=== PATIENT | male | born 1955 | race African-American/Black ===

== ENCOUNTER 2017-06-18 18:33 | Inpatient (IN) | payer MEDICARE ==
[2017-06-18] MEDS ORDERED: Ondansetron ODT 4 MG TAB PO PRN (22:43)
[2017-06-18] MEDS ORDERED: Vancomycin HCl 750 MG in Sodium Chloride 0.9% 250 ML 250 ML IVPB SCH (23:15)
[2017-06-19 05:20] LABS: #Basophils 0.1 thou/uL (0.0-0.2); #Eosinphils 0.2 thou/uL (0.0-0.7); #Monocytes 0.8 thou/uL (0.11-0.59); #Neutrophils 5.8 thou/uL (1.40-6.50); %Basophils 1.5 % (0.0-1.0); %Eosinophils 2.7 % (0.0-10.0); %Lymphocytes 22.4 % (21.0-51.0); %Monocytes 8.6 % (0.0-10.0); %Neutrophils 64.9 % (42.0-75.0); Hemoglobin 9.8 g/dL (14.0-18.0); Mean Corpuscular HGB CONC 30.9 g/dL (32.0-36.0); Mean Corpuscular Hemoglobin 26.3 pg (27.0-31.0); Mean Platelet Volume 5.4 fL (7.4-10.4); Platelet Count 336 thou/uL (130-400); RBC Distribution Width 17.6 % (11.5-14.5); Red Blood Cell (RBC) Count 3.73 mill/uL (4.70-6.10); White Blood Cell (WBC) Count 8.9 thou/uL (4.8-10.8)
[2017-06-19 05:39] LABS: ALT (SGPT) 13 U/L (8-55); AST (SGOT) 16 U/L (5-34); Albumin 2.6 g/dL (3.4-4.8); Alkaline Phosphatase 67 U/L (40-150); Anion Gap 14 mmol/L (10-20); BUN (Urea Nitrogen) 18 mg/dL (8.4-25.7); Bilirubin, Total 0.2 mg/dL (0.2-1.2); Calc. Creatinine Clearance 33 mL/min (70-130); Calcium 8.4 mg/dL (7.8-10.44); Carbon Dioxide 25 mmol/L (23-31); Chloride 100 mmol/L (98-107); Estimated GFR-MDRD 14; Globulin 4.4 g/dL (2.4-3.5); Glucose 179 mg/dL (80-115); Potassium 4.2 mmol/L (3.5-5.1); Sodium 135 mmol/L (136-145)
[2017-06-19] MEDS: Insulin NPH/Reg Insulin Hm 300 UNITS/3 ML VIAL SC SCH ×2 (08:05→17:15)
[2017-06-19] MEDS: Carvedilol 25 MG TAB PO SCH ×3 (08:10→21:21)
[2017-06-19] MEDS: Cipro 250 MG TAB PO SCH ×2 (08:58→21:22)
[2017-06-19] MEDS: metroNIDAZOLE 500 MG TAB PO SCH ×3 (09:01→21:21)
[2017-06-19] MEDS: cloNIDine HCl 0.1 MG TAB PO SCH (09:01)
[2017-06-19] MEDS: Famotidine 20 MG TAB PO SCH (09:03)
[2017-06-19] MEDS: Clopidogrel Bisulfate 75 MG TAB PO SCH (09:03)
[2017-06-19] MEDS: Heparin 5,000 UNITS/ML VIAL SC SCH ×2 (09:06→21:23)
--- NOTE | 2017-06-19 11:57 | HP ---
DATE OF ADMISSION: 06/18/2017. HISTORY OF PRESENT ILLNESS: The patient is a very pleasant 61-year-old black male with multiple med ical problems, who presented to his wound care clinic and was found to have a left foot ulcer that a ppeared to be infected. He was sent to the emergency room and was found to have a left diabetic aleksandra t ulcer and was admitted to the hospital for rule out osteomyelitis and to treat his infection. PAST MEDICAL HISTORY: Reveals the patient has a followin. Hypertension. 2. Hyperlipidemia. 3. Insulin-dependent type 2 diabetes. 4. End-stage renal disease on hemodialysis, followed by Dr. Dunn. 5. Stroke. 6. Heart block, status post pacemaker. 7. Chronic lymphedema. 8. Peripheral vascular disease. 9. Chronic leg wounds. 10. Generalized weakness. 11. Morbid obesity. 12. Left lower extremity cellulitis with nonhealing diabetic foot ulcer. 13. Osteomyelitis of the left heel. 14. Osteomyelitis of the left fifth toe. 15. Severe peripheral vascular disease, status post peripheral angiogram suggestive of significant peripheral vascular disease, status post stent in the left lower extremity. 16. Prior history of stroke without any neurological deficits. 17. Chronic bilateral lymphedema with chronic wounds. PAST SURGICAL HISTORY: 1. Cholecystectomy. 2. Left foot surgery in 1996. FAMILY HISTORY: Unremarkable. SOCIAL HISTORY: Reveals the patient lives at home with his family. He stopped smoking in 1984. De nies any alcohol or illicit drugs. He is unable to work. ALLERGIES: He has no known medical allergies. PRESENT MEDICATIONS: He is presently on the following, which include: 1. Amlodipine 10 mg daily. 2. Carvedilol 12.5 mg twice a day. 3. Clonidine 0.3 mg daily. 4. Clopidogrel 75 mg daily. 5. Atorvastatin 20 mg daily. 6. Aspirin 81 mg daily. 7. Ciprofloxacin 250 mg b.i.d. 8. Flagyl 250 mg t.i.d. 9. Vancomycin 1200 mg IV piggyback for dialysis per protocol and those 3 antibiotics, we will nancy nue until 07/27/2017. 10. Humalog subcutaneous p.r.n. sliding scale. 11. Novolin 70/30 at 15 units subcutaneous b.i.d. 12. Pantoprazole 40 mg daily. REVIEW OF SYSTEMS: The patient denies any fever or chills, or night sweats at this time. The patie nt denies any change in vision or change in hearing or any oral, nose or throat maladies. The edgardo ent denies any cough, cold, congestion, shortness of breath or dyspnea on exertion at this time. Th e patient denies any chest pain including irregularity, rapid or slow heartbeats. The patient denie s nausea, vomiting, diarrhea, constipation, or black, bloody or tarry stools. The patient denies si gnificant nocturia, hematuria, or dysuria. The patient admits to generalized weakness mostly from h is being obese and overweight, and he is having to be off of his foot at this time for those healing diabetic ulcers. The patient denies any anxiety or depressive disorder or stress. PHYSICAL EXAMINATION: GENERAL: This is a well-developed, well-nourished, morbidly obese black male, in no apparent distre ss at this time. HEENT: Reveals normocephalic, nontraumatic cranium. The pupils are equally round and reactive. Ex traocular movements are intact. Nose and throat are slightly dry, but clear. NECK: Supple without masses, nodes or bruits. No jugular venous distention is noted. CHEST: Clear to auscultation. No rales, no rhonchi, no wheezes are heard. No cough is noted. HEART: Reveals a regular rate and rhythm without murmurs, gallops or rubs. ABDOMEN: Morbidly obese, soft, nontender, without organomegaly. Organomegaly is not appreciated du e to the size. Bowel sounds are present in all 4 quadrants. No rebound or guarding is noted. GENITOURINARY: Deferred. EXTREMITIES: Reveal bilateral significant lymphedema with lower extremity wounds on the left side o f the heel, fifth metatarsal and the mid upper calf, which were all bandaged at this time. NEUROLOGIC: The patient is oriented to person, place, and time. ASSESSMENT: 1. Diabetic foot with lower extremity cellulitis, status post ulcer debridement, postoperative day #7. 2. Osteomyelitis of the left heel. 3. Osteomyelitis of the left fifth toe. 4. Diabetes type 2. 5. Hypertension. 6. Severe peripheral vascular disease, status post stent. 7. Heart block, status post pacemaker. 8. End-stage renal disease, on hemodialysis. 9. Prior stroke without neurological deficits. 10. History of occasional hypotension to borderline blood pressure. 11. Bilateral chronic lymphedema with chronic wounds. 12. Morbid obesity. PLAN: 1. Continue present antibiotics of vancomycin during dialysis as per sliding scale. 2. Continue ciprofloxacin 250 b.i.d. 3. Continue Flagyl 250 t.i.d. 4. Continue those 3 antibiotics until 07/27/2017. 5. CBC, C-reactive protein, and CMP every week and send results to Dr. Vásquez. 6. See the strategic accounts manager in 2 to 3 weeks. 7. See the wound care physician weekly. 8. Possible wound VAC therapy. 9. Therapy for chronic lymphedema as needed. I spent more than 65 minutes discussing the case with the patient and his expectations and our expec tations.
[2017-06-19] MEDS ORDERED: Dextrose 50% Abboject 50 ML SYRINGE IVP PRN (17:19)
[2017-06-19] MEDS ORDERED: Dextrose 5% in Water 1,000 ML IV PRN (17:19)
[2017-06-19] MEDS: HumaLOG 300 UNITS/3 ML VIAL SC PRN (17:39)
[2017-06-19] MEDS: Atorvastatin Calcium 20 MG TAB PO SCH (21:20)
--- NOTE | 2017-06-19 22:17 | PRG ---
DATE OF SERVICE: 06/19/2017 DATE OF ADMISSION: 06/18/2017 SUBJECTIVE: Mr. Wells is a very pleasant 61-year-old black male with multiple medical problems who p resented to the [facility] Care [facility], who was found to have a left foot ulcer that appeared to be infec robbie. He was sent to the emergency room and had a diabetic foot ulcer. He was admitted to the [facility] to rule out osteomyelitis and eventually transferred to [facility] for continued IV antibiotics of vancomycin, Flagyl and Cipro treated until 07/27/2017. The patient states he is doing fairly well. He ate fairly well. He has no complaints. He states h e did not get out of bed today, but it was Wednesday. PHYSICAL EXAMINATION: VITAL SIGNS: Blood pressure this morning 130/63, pulse 74-81, respirations 18-20, O2 sat 97%-98%. T-max 99.1. Weight today is 374 pounds. GENERAL: This is a well-developed, well-nourished, morbidly obese black male in no apparent distres s, on hemodialysis 3 times a week by Dr. Dunn. HEENT: Reveals normocephalic, nontraumatic cranium. Pupils are equally round and reactive. Extrao cular movements intact. Nose and throat are slightly dry. NECK: Supple, without masses, nodes or bruits. LUNGS: Chest is clear to auscultation. No rales, rhonchi, or wheezes are heard. No cough is noted . HEART: Reveals a regular rate and rhythm without murmurs, gallops or rubs. Pacemaker noted in the left upper quadrant. ABDOMEN: Morbidly obese, soft, nontender, without organomegaly. Normal bowel sounds are noted. No rebound or guarding is noted. : Deferred. EXTREMITIES: Reveal significant bilateral lymphedema in lower extremities. Wounds on left side of heel, fifth metatarsal, and mid upper calf, all bandaged at this time still. NEUROLOGIC: The patient is oriented to person, place, time, and situation. LABORATORY DATA: Laboratories yesterday revealed a white count of 8000, hemoglobin 9.8, hematocrit 31.7, and platelet count 336,000. Chemistries yesterday revealed a sodium 135, potassium 4.2, and c reatinine 5.18. Obici-rl-ylhe sugars reveal sugar this morning fasting 182, before lunch 175, befor e supper 264. Liver enzymes are fine. ASSESSMENT: 1. Diabetic foot with lower extremity cellulitis, status post ulcer debridement postop. 2. Osteomyelitis of the left heel. 3. Osteomyelitis of the left fifth toe. 4. Diabetes type 2. 5. Hypertension. 6. Severe peripheral vascular disease, status post stent. 7. Heart block, status post pacemaker. 8. End-stage renal disease on hemodialysis. 9. Prior stroke without neurological deficits. 10. History of occasional hypotension. 11. Borderline high blood pressure. 12. Bilateral chronic lymphedema with chronic wounds. 13. Morbid obesity. PLAN: 1. Continue vancomycin and some sliding scale dose during dialysis until 07/27/2017. 2. Continue ciprofloxacin 250 b.i.d. until 07/27/2017. 3. Continue Flagyl 250 mg t.i.d. until 07/27/2017. 4. CBC, C-reactive protein, CMP every week and send results to Dr. Vásquez. 5. See extracting machine operator in 2-3 weeks. 6. Wound care physician to be seen weekly. 7. Possible wound VAC in the future depending on how well the wound is healing. Continue chronic l ymphedema therapy is needed.
[2017-06-20 05:27] LABS: Hemoglobin 9.6 g/dL (14.0-18.0); Platelet Count 329 thou/uL (130-400)
[2017-06-20] MEDS: Carvedilol 25 MG TAB PO SCH ×3 (08:05→21:39)
[2017-06-20] MEDS: Insulin NPH/Reg Insulin Hm 300 UNITS/3 ML VIAL SC SCH ×2 (08:05→16:57)
[2017-06-20] MEDS: metroNIDAZOLE 500 MG TAB PO SCH ×3 (09:05→21:38)
[2017-06-20] MEDS: Cipro 250 MG TAB PO SCH ×2 (09:05→21:40)
[2017-06-20] MEDS: cloNIDine HCl 0.1 MG TAB PO SCH (09:05)
[2017-06-20] MEDS: Famotidine 20 MG TAB PO SCH (09:05)
[2017-06-20] MEDS: Clopidogrel Bisulfate 75 MG TAB PO SCH (09:10)
[2017-06-20] MEDS: Heparin 5,000 UNITS/ML VIAL SC SCH ×2 (09:11→21:40)
[2017-06-20] MEDS: HumaLOG 300 UNITS/3 ML VIAL SC PRN ×2 (11:56→16:58)
[2017-06-20] MEDS: Atorvastatin Calcium 20 MG TAB PO SCH (21:40)
[2017-06-20] MEDS: Acetaminophen 325 MG TAB PO PRN (21:40)
--- NOTE | 2017-06-21 02:36 | PRG ---
DATE OF SERVICE: 06/20/2017 HISTORY OF PRESENT ILLNESS: Mr. Wells is a very pleasant 61-year-old black male with multiple medica l problems that presented to the [facility] Care Clinic. He was found to have a left foot ulcer that was infected. He was sent to the emergency room with diabetic foot ulcer. He was admitted to the [facility] to rule out osteomyelitis and eventually transferred to [facility] for continued IV anti biotics on vancomycin and Flagyl and Cipro to be treated until 07/27/2017. Patient also has end-sta ge renal disease. The patient has dialysis on Wednesday, Wednesday, and Wednesday. SUBJECTIVE: The patient states he is doing well. He is eating fairly well. He has no complaints. He is not able to get out of bed today. PHYSICAL EXAMINATION: VITAL SIGNS: Today reveal blood pressure 134/58, pulse 67-72, respirations 20, O2 sat 95-97%, tempe rature max 97.2. Weight is 347 pounds. GENERAL: This is a well-developed, well-nourished, morbidly obese black male in no apparent distres s at this time. HEENT: Reveals normocephalic, nontraumatic cranium. Pupils are equally round. Extraocular movemen ts are intact. Nose and throat are slightly dry. NECK: Supple, without masses, nodes or bruits. LUNGS: Chest is clear to auscultation. No rales, no rhonchi, no wheezes or cough is heard. CARDIOVASCULAR: Reveals a regular rate and rhythm without murmurs, gallops or rubs. Pacemaker note d in the left upper quadrant. ABDOMEN: Morbidly obese. It is soft and nontender. Normal bowel sounds are noted. No rebound or guarding is noted. GENITOURINARY: Deferred. EXTREMITIES: Reveal continued bilateral lymphedema lower extremities with wounds in the left heel, the left fifth metatarsal and left mid upper calf. These will be either attended to by Wound Care. NEUROLOGIC: The patient is oriented to person, place, and time. LABORATORY DATA: No labs were done today. IMPRESSION: 1. Diabetic foot lower extremity cellulitis status post ulcer debridement postop. 2. Osteomyelitis, left heel. 3. Osteomyelitis, left fifth toe. 4. Diabetes type 2. 5. Hypertension. 6. Severe peripheral vascular disease, status post stent. 7. Heart block status post pacemaker. 8. End-stage renal disease, on hemodialysis Wednesday, Wednesday, and Wednesday. 9. Prior stroke without neurological deficits. 10. History of occasional hypotension. 11. Borderline hypertension. 12. Chronic bilateral lymphedema with chronic wounds. 13. Morbid obesity. POINT OF CARE: Glucoses day revealed a fasting blood sugar this morning 128, before lunch 158, befo re supper 168, before bedtime 125. PLAN: 1. Continue vancomycin after dialysis. 2. Continue sliding scale dose during dialysis. 3. Continue ciprofloxacin 250 b.i.d. until 07/27/2017. 4. Continue Flagyl 250 t.i.d. until 07/27/2017. 5. CBC, C-reactive protein, CMP, sed rate weekly to Dr. Vásquez. 6. Fashion Supervisor 2-3 weeks. 7. The patient will see the Wound Care doctor sometimes this week. We will need to make arrangemen ts for that to happen and then weekly. 8. Possible wound VAC in the future.
[2017-06-21] MEDS: metroNIDAZOLE 500 MG TAB PO SCH ×3 (08:34→21:42)
[2017-06-21] MEDS: cloNIDine HCl 0.1 MG TAB PO SCH (08:34)
[2017-06-21] MEDS: Carvedilol 25 MG TAB PO SCH ×3 (08:35→21:41)
[2017-06-21] MEDS: Cipro 250 MG TAB PO SCH ×2 (08:36→21:41)
[2017-06-21] MEDS: Famotidine 20 MG TAB PO SCH (08:36)
[2017-06-21] MEDS: Clopidogrel Bisulfate 75 MG TAB PO SCH (08:37)
[2017-06-21] MEDS: Insulin NPH/Reg Insulin Hm 300 UNITS/3 ML VIAL SC SCH ×2 (08:38→16:57)
[2017-06-21] MEDS: Heparin 5,000 UNITS/ML VIAL SC SCH ×2 (08:39→21:41)
[2017-06-21] MEDS ORDERED: [UNRECOGNIZED DRUG - REMARK] IVPB PRN (09:56)
[2017-06-21] MEDS ORDERED: [UNRECOGNIZED DRUG - OTHER] FS PRN (10:23)
[2017-06-21 10:26] LABS: Vancomycin, Trough 15.3 ug/mL
[2017-06-21] MEDS: Atorvastatin Calcium 20 MG TAB PO SCH (21:42)
--- NOTE | 2017-06-22 01:37 | PRG ---
DATE OF ADMISSION: 06/18/2017 DATE OF PROGRESS NOTE: 06/21/2017 HISTORY OF PRESENT ILLNESS: Mr. Wells is a very pleasant 61-year-old black male with multiple medica l problems that presented to the Wound Clinic in [place]. He had an infected foot and was s ent to the emergency room where he had a diabetic foot and he was admitted to the hospital. In the hospital, he was found to have osteomyelitis and eventually transferred to [facility], so he can continue his 3 antibiotics including vancomycin and Flagyl and Cipro. It is also noted that the patient has end-stage renal disease and continue with dialysis on Wednesday, Wednesday, and Wednesday. SUBJECTIVE: The patient states he is doing well. He is getting ready go to dialysis here soon. He has no complaints. PHYSICAL EXAMINATION: VITAL SIGNS: Reveal blood pressure 143/61, pulse 67 to 68, respirations 18 to 20, O2 sat 95% on dana m air, T-max 97.5. GENERAL: Reveals a well-developed, well-nourished, morbidly obese black male in no apparent distres s at this time. HEENT: Reveals normocephalic, nontraumatic cranium. Pupils are equally round and reactive. Extrao cular movements intact. Nose and throat are slightly dry. NECK: Supple, without masses, nodes or bruits. LUNGS: Chest is clear to auscultation. Breath sounds are distant. No rales, rhonchi, wheezes or c ough is heard. HEART: Reveals a regular rate and rhythm without murmurs, gallops or rubs. Pacemaker still noted i n the left upper quadrant. ABDOMEN: Morbidly obese. Normal bowel sounds are noted in all 4 quadrants. The patient has no deloris ound or guarding. Difficult to discern whether the patient has any organomegaly. GENITOURINARY: Deferred. EXTREMITIES: Reveal bilateral lower extremity lymphedema, which was on the left heel, the left fift h metatarsal, and the left mid upper calf, which was on I and D. NEUROLOGIC: The patient is oriented to person, place, time, and situation. LABORATORY DATA: Today reveals sugars of fasting this morning 116, before lunch 176. Vancomycin tr ough was 15.3. IMPRESSION: 1. Diabetic foot, lower extremity cellulitis, status post ulcer debridement, postop catheterization . 2. Osteomyelitis of left heel. 3. Osteomyelitis of left fifth toe. 4. Diabetes type 2. 5. Hypertension. 6. Peripheral vascular disease, severe, status post stent. 7. Heart block status post pacemaker. 8. End-stage renal disease on hemodialysis Wednesday, Wednesday, and Wednesday. 9. Prior stroke without neurological deficits. 10. Hypotension occasionally. 11. Borderline hypertension. 12. Chronic bilateral lymphedema with chronic wounds. 13. Morbid obesity. PLAN: 1. Continue vancomycin at the end of dialysis. 2. Continue sliding scale, vancomycin per Dr. Mcfadden. 3. Continue ciprofloxacin 250 b.i.d. 4. Continue Flagyl 250 t.i.d. 5. Continue CBC, C-reactive protein, CMP and sedimentation rate weekly to Dr. Vásquez. 6. Cardiology appointment 2 to 3 weeks. 7. The patient will be followed up with wound care doctor this week. 8. Possible wound VAC in the future.
[2017-06-22 01:57] LABS: Vancomycin, Random 12.5 ug/mL (See Comment)
[2017-06-22] MEDS: Acetaminophen 325 MG TAB PO PRN (06:23)
[2017-06-22] MEDS: Famotidine 20 MG TAB PO SCH (08:16)
[2017-06-22] MEDS: Clopidogrel Bisulfate 75 MG TAB PO SCH (08:17)
[2017-06-22] MEDS: metroNIDAZOLE 500 MG TAB PO SCH ×3 (08:17→21:18)
[2017-06-22] MEDS: cloNIDine HCl 0.1 MG TAB PO SCH (08:17)
[2017-06-22] MEDS: Cipro 250 MG TAB PO SCH ×2 (08:18→21:17)
[2017-06-22] MEDS: Heparin 5,000 UNITS/ML VIAL SC SCH ×2 (08:18→21:16)
[2017-06-22] MEDS: Insulin NPH/Reg Insulin Hm 300 UNITS/3 ML VIAL SC SCH ×2 (08:18→16:08)
[2017-06-22] MEDS: Carvedilol 25 MG TAB PO SCH ×3 (08:30→21:17)
[2017-06-22] MEDS ORDERED: Vancomycin HCl 500 MG in Sodium Chloride 0.9% 100 ML IVPB SCH (11:30)
[2017-06-22] MEDS: HumaLOG 300 UNITS/3 ML VIAL SC PRN ×2 (12:02→16:09)
[2017-06-22] MEDS: Atorvastatin Calcium 20 MG TAB PO SCH (21:17)
[2017-06-23] MEDS: Acetaminophen 325 MG TAB PO PRN ×2 (05:20→19:36)
--- NOTE | 2017-06-23 06:20 | PRG ---
DATE OF SERVICE: 06/22/2017 HISTORY OF PRESENT ILLNESS: Mr. Wells is a very pleasant 61-year-old black male with multiple medica l problems that presented to the Wound Clinic in [place]. He was sent emergently to the [facility] room for his diabetic foot, admitted to the hospital. Eventually, he was found to have an os teomyelitis and had end-stage renal disease. He has been doing dialysis Wednesday, Wednesday, and ay. He is continued to have Wound Care on his left heel, and left fifth metatarsal and left mid upp er calf. SUBJECTIVE: The patient states he is doing well, but he was surprised that he did not get his vanco mycin when he was at dialysis yesterday. It was much talk about that, but apparently they just did not give it to him. He is presently had an IV started and has his vancomycin going at this time. He has no complaints. OBJECTIVE: VITAL SIGNS: Reveals blood pressure 118/56, pulse 69-75, respirations 16-20, O2 sat 97% to 100%, T- max 98.1. Weight 347 pounds. PHYSICAL EXAMINATION: GENERAL: This is a well-developed, well-nourished, morbidly obese white male, in no apparent distre ss at this time. HEENT: Reveals normocephalic, nontraumatic cranium. Pupils are equally round and reactive. Extrao cular movements intact. Nose and throat are slightly dry. NECK: Supple, without masses, nodes or bruits. CHEST: Clear to auscultation. No rales, rhonchi or wheezes are heard.. CARDIOVASCULAR: Reveals a regular rate and rhythm without murmurs, gallops or rubs. ABDOMEN: Morbidly obese, soft, nontender, without abnormal bowel sounds. The patient has no reboun d or guarding. GENITOURINARY: Deferred. EXTREMITIES: Reveal bilateral lower extremity lymphedema. The patient does have a decubitus ulcer on the left heel, the left fifth metatarsal and the left upper calf (02:25). NEUROLOGIC: Patient oriented to person, place, and time. LABORATORY DATA: Reveals fasting sugar this morning was 132, before lunch 159, and before bedtime 1 92. Random vancomycin level done last night was 12.5. He did get 500 mg of vancomycin today. ASSESSMENT: 1. Diabetic foot lower extremity cellulitis status post ulcer debridement and postop catheterizatio n. 2. Osteomyelitis of left heel. 3. Osteomyelitis of the left fifth toe. 4. Diabetes type 2. 5. Hypertension. 6. Peripheral vascular disease, severe stasis, status post stent. 7. Heart block status post pacemaker. 8. End-stage renal disease, on hemodialysis Wednesday, Wednesday, Wednesday. 9. Prior stroke with neurological deficits. 10. Hypotension. 11. Borderline hypertension. 12. Chronic bilateral lymphedema with chronic wounds. 13. Morbid obesity. PLAN: 1. Continue vancomycin at the end of each dialysis. 2. Continue new sliding scale. 3. Vancomycin per Dr. Vásquez or Dr. Mcfadden. 4. Continue ciprofloxacin 250 mg b.i.d. 5. Continue Flagyl 250 mg b.i.d. 6. Antibiotics to be continued until I believe 07/31/2017, possibly. 7. Continue CBC: C-reactive protein, sed rate, and CMP weekly and send to Dr. Vásquez. 8. Cardiology appointment 2 to 3 weeks. 9. Followup with the Wound Care doctor this week. 10. Possible wound vac in the future.
[2017-06-23] MEDS: Heparin 5,000 UNITS/ML VIAL SC SCH ×2 (08:26→21:20)
[2017-06-23] MEDS: Insulin NPH/Reg Insulin Hm 300 UNITS/3 ML VIAL SC SCH ×2 (08:26→17:27)
[2017-06-23] MEDS: Carvedilol 25 MG TAB PO SCH ×2 (08:29→21:20)
[2017-06-23] MEDS: Famotidine 20 MG TAB PO SCH (08:29)
[2017-06-23] MEDS: Cipro 250 MG TAB PO SCH ×2 (08:29→21:20)
[2017-06-23] MEDS: metroNIDAZOLE 500 MG TAB PO SCH ×3 (08:30→21:21)
[2017-06-23] MEDS: Clopidogrel Bisulfate 75 MG TAB PO SCH (08:30)
[2017-06-23] MEDS: cloNIDine HCl 0.1 MG TAB PO SCH (08:31)
[2017-06-23] MEDS: Atorvastatin Calcium 20 MG TAB PO SCH (21:22)
--- NOTE | 2017-06-23 23:53 | PRG ---
DATE OF SERVICE: 06/23/2017 HISTORY OF PRESENT ILLNESS: Mr. Wells is a very pleasant 61-year-old white male that presented to [facility] in [place] and was immediately referred to the emergency room for diabet ic foot. He is admitted and eventually found to have an osteomyelitis and end-stage renal disease. He has been doing dialysis Wednesday, Wednesday, and Wednesday. He is continued to have wound care on hi s left heel, left fifth metatarsal and left mid upper calf. He was transferred to [facility] for continued IV antibiotics, oral antibiotics, physical therapy and occupational therapy . The patient has done well. He has been to dialysis. There was some difficulty last time with the d ialysis. He did not get his vancomycin, so therefore he had get 500 mg dose of vancomycin yesterday . PHYSICAL EXAMINATION: VITAL SIGNS: Today reveal blood pressure 119/58, pulse 71-76, respirations 20, O2 sat 96% on room a ir, temperature max 97.8. GENERAL: This is a well-developed, well-nourished, morbidly obese white male, in no apparent distre ss. HEENT: Reveals normocephalic, nontraumatic cranium. Pupils are equally round and reactive. Extrao cular movements intact. Nose and throat are slightly dry. NECK: Supple without masses, nodes, or bruits. CHEST: Clear to auscultation. No rales, rhonchi, or wheezes are heard. CARDIOVASCULAR: Reveals a regular rate and rhythm without murmurs, gallops or rubs. ABDOMEN: Morbidly obese. No rebound or guarding is noted. GENITOURINARY: Deferred. EXTREMITIES: Bilateral lower extremities reveal a significant lymphedema. The patient continues to get wound care on his decubitus on the left heel, the left fifth metatarsal and the left upper calf . NEUROLOGIC: Patient is oriented to person, place, time, and situation. IMPRESSION: 1. Diabetic foot with lower extremity cellulitis, status post ulcer debridement and postop drainage . 2. Osteomyelitis, left heel. 3. Osteomyelitis, left fifth toe. 4. Diabetes type 2 with his sugars this morning ranging from 132 fasting, 169 before lunch, 192 bef ore supper, 186 before bedtime, which are much improved over his prior sugars. 5. Hypertension. 6. Peripheral vascular disease with severe stasis, status post stent. 7. Heart block, status post pacemaker. 8. End-stage renal disease, on hemodialysis Wednesday, Wednesday, and Wednesday. 9. Prior stroke with neurological deficits. 10. Hypertension. 11. Borderline hypertension. 12. Chronic bilateral lymphedema with chronic wounds. 13. Morbid obesity. PLAN: 1. Continue vancomycin at the end of each dialysis. 2. Ciprofloxacin 250 b.i.d. 3. Flagyl 250 b.i.d. 4. Continue antibiotics until 07/27/2017. 5. Continue CBC, C-reactive protein, CMP and sed rate weekly to make sure that they get sent to Dr. Vásquez. 6. Wound care appointment weekly with Dr. Back. 7. Cardiology appointment in 2-3 weeks. 8. Possible wound VAC in the future.
[2017-06-24] MEDS: Acetaminophen 325 MG TAB PO PRN ×2 (06:34→20:40)
[2017-06-24] MEDS: Insulin NPH/Reg Insulin Hm 300 UNITS/3 ML VIAL SC SCH ×2 (08:00→17:37)
[2017-06-24] MEDS: Cipro 250 MG TAB PO SCH ×2 (09:26→20:37)
[2017-06-24] MEDS: Clopidogrel Bisulfate 75 MG TAB PO SCH (09:26)
[2017-06-24] MEDS: cloNIDine HCl 0.1 MG TAB PO SCH (09:26)
[2017-06-24] MEDS: Carvedilol 25 MG TAB PO SCH ×2 (09:27→20:37)
[2017-06-24] MEDS: metroNIDAZOLE 500 MG TAB PO SCH ×3 (09:28→20:36)
[2017-06-24] MEDS: Famotidine 20 MG TAB PO SCH (09:28)
[2017-06-24] MEDS: Heparin 5,000 UNITS/ML VIAL SC SCH ×2 (09:31→20:40)
[2017-06-24] MEDS: HumaLOG 300 UNITS/3 ML VIAL SC PRN (12:11)
[2017-06-24] MEDS: Atorvastatin Calcium 20 MG TAB PO SCH (20:37)
--- NOTE | 2017-06-25 03:16 | PRG ---
DATE OF SERVICE: 06/23/2017 HISTORY OF PRESENT ILLNESS: Mr. Wells is a very pleasant 61-year-old black male who was transferred the [facility] in [place] for a diabetic foot. He was admitted and found to have ost eomyelitis and end-stage renal disease. He has been on dialysis Wednesday, Wednesday, and Wednesday. He has continued wound care to his left heel, left fifth metatarsal and left mid upper thigh. He fadumo arana was transferred to [facility] for continued IV vancomycin after his dialysis, oral antibiotics including ciprofloxacin and Flagyl and for physical therapy and occupational therap y. SUBJECTIVE: The patient states he had a good day yesterday. He had dialysis and he will go to [facility] again tomorrow. He has no complaints. He is eating fairly well. He states he is working hard with his physical therapy and occupational therapy. VITAL SIGNS: Blood pressure 113/56, pulse 74-87, respirations 19-20, O2 sat 96-99% on room air, tem perature max 98.7, weight is still at 347 pounds. PHYSICAL EXAMINATION: GENERAL: This is a well-developed, well-nourished, morbidly obese white male in no apparent distres s at this time. HEENT: Reveals normocephalic, nontraumatic cranium. Pupils are equally round and reactive. Extrao cular movements intact. Nose and throat are slightly dry. NECK: Supple, without masses, nodes or bruits. LUNGS: Chest is clear to auscultation. No rales, rhonchi or wheezes are heard. CARDIOVASCULAR: Heart reveals a regular rate and rhythm without murmurs, gallops or rubs. ABDOMEN: Morbidly obese, soft and nontender. No rebound or guarding is noted. Normal bowel sounds are heard in all 4 quadrants. : Deferred. EXTREMITIES: Reveal bilateral lower extremity significant lymphedema. The patient also has wound c are on the decubitus on the left heel, left fifth metatarsal and the left upper calf which are prese ntly wrapped. NEUROLOGIC: Patient is oriented to person, place, and time. IMPRESSION: 1. Diabetic left foot, left lower extremity cellulitis status post ulcer debridement and postoperat eduardo drainage. 2. Osteomyelitis, left heel. 3. Osteomyelitis left fifth toe. 4. Diabetes type 2 with his sugars this morning ranging from 105 fasting to 180 before lunch and 14 5 before supper. 5. Hypertension. 6. Peripheral vascular disease with severe stasis, status post stent. 7. Heart block status post pacemaker. 8. End-stage renal disease, on hemodialysis Wednesday, Wednesday and Wednesday. 9. Prior stroke with neurological deficits. 10. Hypertension. 11. Borderline hypotension. 12. Chronic bilateral lymphedema with chronic wounds. 13. Morbid obesity. PLAN: 1. Continue vancomycin at the end of each dialysis. 2. Ciprofloxacin 250 mg twice daily. 3. Flagyl 250 mg 3 times daily. 4. Continue antibiotics until 07/27/2017. 5. CBC, C-reactive protein, CMP and sed rate to Dr. Vásquez. 6. Wound care weekly with Dr. Back. 7. Cardiology appointment in 1-2 weeks. 8. Possible wound VAC in the future.
[2017-06-25] MEDS: Carvedilol 25 MG TAB PO SCH ×2 (08:46→21:35)
[2017-06-25] MEDS: cloNIDine HCl 0.1 MG TAB PO SCH (08:46)
[2017-06-25] MEDS: Famotidine 20 MG TAB PO SCH (08:47)
[2017-06-25] MEDS: Cipro 250 MG TAB PO SCH ×2 (08:47→21:34)
[2017-06-25] MEDS: Insulin NPH/Reg Insulin Hm 300 UNITS/3 ML VIAL SC SCH ×2 (08:48→17:00)
[2017-06-25] MEDS: metroNIDAZOLE 500 MG TAB PO SCH ×3 (08:48→21:34)
[2017-06-25] MEDS: Clopidogrel Bisulfate 75 MG TAB PO SCH (08:48)
[2017-06-25] MEDS: Heparin 5,000 UNITS/ML VIAL SC SCH ×2 (08:49→21:35)
[2017-06-25] MEDS: traMADol HCl 50 MG TAB PO PRN (21:32)
[2017-06-25] MEDS: Acetaminophen 500 MG TAB PO PRN (21:34)
[2017-06-25] MEDS: Atorvastatin Calcium 20 MG TAB PO SCH (21:35)
[2017-06-26] MEDS: Acetaminophen 500 MG TAB PO PRN ×2 (05:15→21:45)
[2017-06-26] MEDS: traMADol HCl 50 MG TAB PO PRN ×2 (05:15→21:44)
[2017-06-26] MEDS: Heparin 5,000 UNITS/ML VIAL SC SCH ×2 (09:10→21:45)
[2017-06-26] MEDS: Insulin NPH/Reg Insulin Hm 300 UNITS/3 ML VIAL SC SCH ×2 (09:12→16:44)
[2017-06-26] MEDS: Clopidogrel Bisulfate 75 MG TAB PO SCH (09:12)
[2017-06-26] MEDS: Famotidine 20 MG TAB PO SCH (09:13)
[2017-06-26] MEDS: Cipro 250 MG TAB PO SCH ×2 (09:13→21:45)
[2017-06-26] MEDS: metroNIDAZOLE 500 MG TAB PO SCH ×3 (09:13→21:43)
[2017-06-26] MEDS: Carvedilol 25 MG TAB PO SCH ×2 (09:14→21:43)
[2017-06-26] MEDS: cloNIDine HCl 0.1 MG TAB PO SCH (09:14)
--- NOTE | 2017-06-26 10:03 | PRG ---
DATE OF SERVICE: 06/26/2017 SUBJECTIVE: Mr. Wells is doing well. Denies any complaints. He is mobile in his wheelchair. He is complaining of some burning sensation in his foot. It is worse at night. He denies any fever or c hills. Denies any chest pain or shortness of breath. He is tolerating his antibiotics. OBJECTIVE: VITAL SIGNS: He is afebrile, heart rate 81, respirations 17, oxygen saturation is 95%, blood pressu re 115/54. CARDIOVASCULAR: S1, S2 plus. RESPIRATORY: Normal vesicular breath sounds. ABDOMEN: Soft, obese, nontender, bowel sounds heard in all quadrants. EXTREMITIES: Without cyanosis or clubbing. Left foot with dressing. Brawny edema is noted. LABORATORY VALUES: Blood sugars are 164, 103, 130 and 122. Vancomycin trough was 16. H\T\H is 9.6 and 32.1. IMPRESSION: 1. Diabetic foot requiring long-term IV antibiotics and this is in the left leg. 2. Possible diabetic neuropathy. 3. Hypertension, well controlled. 4. Peripheral vascular disease, status post PTCA and stent placement. 5. Sick sinus syndrome, status post pacemaker. 6. End-stage renal disease on hemodialysis. 7. Morbid obesity. PLAN: 1. Trial of gabapentin 300 mg at bedtime for 3 days, then b.i.d. 2. Continue ciprofloxacin and Flagyl. 3. Hemodialysis per schedule. 4. A 1800 calorie Heart healthy ADA diet. 5. Accu-Cheks with sliding scale coverage. 6. Wound care. 7. Nutritional support. 8. Deep venous thrombosis and stress ulcer prophylaxis. 9. Decubitus precautions. 10. Routine laboratory values. Discussed with the patient in detail and all questions answered.
[2017-06-26] MEDS: Gabapentin 300 MG CAP PO SCH (21:45)
[2017-06-26] MEDS: Atorvastatin Calcium 20 MG TAB PO SCH (21:45)
[2017-06-27] MEDS: traMADol HCl 50 MG TAB PO PRN ×3 (08:04→23:43)
[2017-06-27] MEDS: Famotidine 20 MG TAB PO SCH (08:05)
[2017-06-27] MEDS: Clopidogrel Bisulfate 75 MG TAB PO SCH (08:05)
[2017-06-27] MEDS: Cipro 250 MG TAB PO SCH ×2 (08:06→21:36)
[2017-06-27] MEDS: metroNIDAZOLE 500 MG TAB PO SCH ×3 (08:06→21:35)
[2017-06-27] MEDS: Carvedilol 25 MG TAB PO SCH ×2 (08:06→21:36)
[2017-06-27] MEDS: Heparin 5,000 UNITS/ML VIAL SC SCH ×2 (08:07→21:45)
[2017-06-27] MEDS: Insulin NPH/Reg Insulin Hm 300 UNITS/3 ML VIAL SC SCH ×2 (08:07→18:52)
[2017-06-27] MEDS: cloNIDine HCl 0.1 MG TAB PO SCH (08:07)
[2017-06-27] MEDS: HumaLOG 300 UNITS/3 ML VIAL SC PRN (12:01)
[2017-06-27] MEDS: Acetaminophen 500 MG TAB PO PRN ×2 (14:50→23:44)
[2017-06-27] MEDS ORDERED: Heparin 5,000 UNITS/ML VIAL ONE (21:17)
[2017-06-27] MEDS: Gabapentin 300 MG CAP PO SCH (21:36)
[2017-06-27] MEDS: Atorvastatin Calcium 20 MG TAB PO SCH (21:36)
--- NOTE | 2017-06-27 22:18 | PRG ---
DATE OF SERVICE: 06/27/2017. SUBJECTIVE: Mr. Wells is doing well. Denies any complaints. He states that the gabapentin really h elped him last night. He states he slept like a baby, advised him that after 3 days he will have it twice a day. He denies any other concerns or questions. OBJECTIVE: VITAL SIGNS: He is afebrile, heart rate is 78, respirations are 20, blood pressure is 113/57. CARDIOVASCULAR SYSTEM: S1, S2 plus. RESPIRATORY SYSTEM: Normal vesicular breath sounds. ABDOMEN: Soft, nontender, obese. Bowel sounds heard in all quadrants. EXTREMITIES: Without cyanosis or clubbing. Left foot with dressing, chronic venous insufficiency. LABORATORY VALUES: Blood sugars are 137, 173, 138. IMPRESSION: 1. Diabetic foot with osteomyelitis, left foot on IV antibiotics. 2. Diabetic neuropathy improved with gabapentin. 3. Hypertension, well controlled. 4. Peripheral vascular disease, status post percutaneous transluminal coronary angioplasty and sten t placement. 5. Sick sinus syndrome, status post pacemaker. 6. End-stage renal disease on hemodialysis. 7. Morbid obesity. PLAN: 1. Continue current medications. 2. Nutritional support. 3. DVT and stress ulcer prophylaxis. 4. Decubitus precautions. 5. Hemodialysis. 6. Accu-Cheks with surgical coverage. 7. Wound care. 8. Dr. Adriana Villalba back tonight.
[2017-06-28] MEDS: Insulin NPH/Reg Insulin Hm 300 UNITS/3 ML VIAL SC SCH ×2 (08:00→17:00)
[2017-06-28] MEDS: Clopidogrel Bisulfate 75 MG TAB PO SCH (09:00)
[2017-06-28] MEDS: metroNIDAZOLE 500 MG TAB PO SCH ×4 (09:00→20:43)
[2017-06-28] MEDS: Cipro 250 MG TAB PO SCH ×2 (09:01→20:44)
[2017-06-28] MEDS: Famotidine 20 MG TAB PO SCH (09:01)
[2017-06-28] MEDS: cloNIDine HCl 0.1 MG TAB PO SCH (09:09)
[2017-06-28] MEDS: Carvedilol 25 MG TAB PO SCH ×2 (09:09→20:45)
[2017-06-28] MEDS: Heparin 5,000 UNITS/ML VIAL SC SCH ×2 (09:11→20:45)
[2017-06-28] MEDS: Atorvastatin Calcium 20 MG TAB PO SCH (20:43)
[2017-06-28] MEDS: Acetaminophen 500 MG TAB PO PRN (20:44)
[2017-06-28] MEDS: Gabapentin 300 MG CAP PO SCH (20:45)
[2017-06-28] MEDS: traMADol HCl 50 MG TAB PO PRN (20:46)
[2017-06-29] MEDS: traMADol HCl 50 MG TAB PO PRN (05:45)
[2017-06-29] MEDS: Acetaminophen 500 MG TAB PO PRN (05:46)
--- NOTE | 2017-06-29 06:11 | PRG ---
DATE OF SERVICE: 06/28/2017 HISTORY OF PRESENT ILLNESS: Mr. Wells is a very pleasant 61-year-old black male transferred from [facility] after having to have osteomyelitis. He was also placed on dialysis on M , Wednesday, and Wednesday. He has continued wound to his left heel, left fifth metatarsal, and m id upper thighs not supposed to be weightbearing at all. He was transferred to [facility] for continued IV vancomycin after dialysis each 3 times a week and oral antibiotics with cipr ofloxacin and Flagyl until 07/27/2017. SUBJECTIVE: The patient states he had a good day today. He did have physical therapy, it seems to be getting somewhat stronger, but he is stating he is nonweightbearing. OBJECTIVE: VITAL SIGNS: Reveal blood pressure this morning was 126/59, pulse 71-73, respirations 18-20, O2 sat 96-98% on room air. T-max is 98.4. LABORATORY DATA: Laboratories last done reveal blood sugars fasting this morning was 114, before smiley pper was 128. He has dialysis during the day. PHYSICAL EXAMINATION: GENERAL: This is a well-developed, well-nourished, very pleasant, morbidly obese black male, in no apparent distress at this time. HEENT: Reveals normocephalic, nontraumatic cranium. Pupils are equally round and reactive. Extrao cular movements intact. Nose and throat are slightly dry. NECK: Supple without masses, nodes, or bruits. CHEST: Clear to auscultation. No rales, rhonchi, or wheezes are heard. CARDIOVASCULAR: Reveals a regular rate and rhythm without murmurs, gallops, or rubs. ABDOMEN: Soft, nontender, without organomegaly. Normal bowel sounds are noted. No rebound or guar ding is noted. : Deferred. EXTREMITIES: Reveal no clubbing or cyanosis. Left foot continues to have the dressing of the heel, fifth metatarsal and the calf. He has chronic venous insufficiency. IMPRESSION: 1. Osteomyelitis, diabetic foot, left foot. Continued IV antibiotics of vancomycin. 2. Diabetic neuropathy, improved with gabapentin. 3. Hypertension, well controlled. 4. Peripheral vascular disease, status post percutaneous transluminal coronary angioplasty and sten t placed in the past. 5. Sick sinus syndrome, status post pacemaker. 6. End stage renal dialysis on hemodialysis. 7. Morbid obesity. PLAN: 1. Continue present medications. 2. Continue dialysis 3 times a week. 3. Continue Accu-Cheks a.c. and at bedtime. 4. Continue to follow the patient's blood pressure closely. 5. Continue vancomycin at the end of each dialysis. 6. Continue ciprofloxacin 250 b.i.d. and Flagyl 250 t.i.d. until 07/27/2017. 7. CBC, C-reactive protein, CMP, a sed rate to Dr. Vásquez each week. 8. Wound care with weekly. 9. Cardiology appointment in the next week. 10. Possible wound VAC in the future.
[2017-06-29] MEDS: Insulin NPH/Reg Insulin Hm 300 UNITS/3 ML VIAL SC SCH ×2 (08:46→17:25)
[2017-06-29] MEDS: Heparin 5,000 UNITS/ML VIAL SC SCH ×2 (08:47→21:26)
[2017-06-29] MEDS: Carvedilol 25 MG TAB PO SCH ×2 (08:48→21:25)
[2017-06-29] MEDS: cloNIDine HCl 0.1 MG TAB PO SCH (08:49)
[2017-06-29] MEDS: metroNIDAZOLE 500 MG TAB PO SCH ×3 (08:50→21:24)
[2017-06-29] MEDS: Cipro 250 MG TAB PO SCH ×2 (08:51→21:24)
[2017-06-29] MEDS: Clopidogrel Bisulfate 75 MG TAB PO SCH (08:51)
[2017-06-29] MEDS: Famotidine 20 MG TAB PO SCH (08:52)
[2017-06-29] MEDS: Gabapentin 300 MG CAP PO SCH (15:15)
[2017-06-29] MEDS: Atorvastatin Calcium 20 MG TAB PO SCH (21:25)
[2017-06-30] MEDS: traMADol HCl 50 MG TAB PO PRN ×2 (03:00→20:50)
[2017-06-30] MEDS: Acetaminophen 500 MG TAB PO PRN ×2 (03:01→20:50)
--- NOTE | 2017-06-30 04:53 | PRG ---
DATE OF SERVICE: 06/29/2017 DATE OF ADMISSION: 06/18/2017 HISTORY OF PRESENT ILLNESS: Mr. Wells is a very pleasant 61-year-old morbidly obese black male who t ransferred from the [facility] with osteomyelitis. He was placed on dialysis on Wednesday, Wednesday, and Fridays. He was sent here also for continued wound care of the left heel, l eft fifth metatarsal and mid upper calf. He is not supposed be weightbearing on his leg at all. Tr ansferred to [facility] for continued IV vancomycin after dialysis 3 times a week an d oral antibiotic ciprofloxacin 250 b.i.d. and Flagyl 250 t.i.d. until 07/27/2017. SUBJECTIVE: The patient states he is doing well. He said that at dialysis, they did tell him that he should be fluid restricted to 32 ounces a day total. He is reminded that he still to be nonweigh tbearing. OBJECTIVE: VITAL SIGNS: Today reveal blood pressure 125/60, pulse 75-82, respirations 16-20, O2 sat 96-98% on room air, and temperature 98.3 max. Weight today was not done. His weight is 347 pounds. GENERAL: This is a well-developed, well-nourished, morbidly obese black male in no apparent distres s at this time. HEENT: Reveals normocephalic, nontraumatic cranium. Pupils are equally round and reactive. Extrao cular movements intact. Nose and throat are slightly dry. NECK: Supple, without masses, nodes or bruits. CHEST: Clear to auscultation. No rales, rhonchi or wheezes are heard. CARDIOVASCULAR: Reveals a regular rate and rhythm without murmurs, gallops or rubs. ABDOMEN: Soft, nontender, without organomegaly, normal bowel sounds are noted. No rebound or guard ing is noted. : Deferred. EXTREMITIES: Reveal no clubbing, cyanosis or edema. The patient continues to have dressings over i t, especially the heel, fifth metatarsal and the calf. He has chronic venous insufficiency and lymp hedema. IMPRESSION: 1. Osteomyelitis with diabetic foot of the left foot. 2. Continue IV antibiotics of vancomycin 3 times a week. 3. Continue ciprofloxacin and Flagyl until 07/27/2017. 4. Diabetic neuropathy, improved with gabapentin. 5. Hypertension, well controlled. 6. Peripheral vascular disease, status post PTCA and stent placement in the past. 7. Sick sinus syndrome. 8. Status post pacemaker. 9. End stage renal disease on hemodialysis. 10. Morbid obesity. PLAN: 1. Continue present medications. 2. Continue dialysis 3 times a week. 3. Continue the Accu-Cheks a.c. and at bedtime. 4. Follow the patient's blood pressure closely. 5. Vancomycin at end of each dialysis 3 times a week. 6. Ciprofloxacin 250 b.i.d. and Flagyl 250 t.i.d until 07/27/2017. 7. CBC, C-reactive protein, CMP, and sed rate to Dr. Vásquez each week. 8. Wound care with Dr. Back weekly. 9. Cardiology appointment next week. 10. Possible wound VAC in the future.
--- NOTE | 2017-06-30 07:02 | PRG ---
DATE OF SERVICE: 06/30/2017 HISTORY OF PRESENT ILLNESS: Mr. Wells is a very pleasant 61-year-old morbidly obese black male trans ferred from the [facility] with osteomyelitis. He also has end-stage renal dise ase and is on dialysis Wednesday, Wednesday, and Fridays. He was sent to [facility] fo r continued vancomycin after each dialysis and Cipro 250 mg twice a day and Flagyl 250 mg 3 times da susana until 07/27/2017. We are also doing wound care of this gentleman. He is not supposed to weight bearing at all. He is unable to return home since he has no one to care for him. SUBJECTIVE: The patient is sleeping and is awakened. He states he is doing well. He has no compla ints today. He is to go to dialysis again today. He is restricted to 32 ounces of total fluid a da y. He is reminded not to be weightbearing and to watch his fluid intake. OBJECTIVE: VITAL SIGNS: Today reveal blood pressure 114/56, pulse 75 to 93, respirations 18-20, O2 sat 93-98%. T-max is 97.5. LABORATORY: No labs were done. PHYSICAL EXAMINATION: GENERAL: Reveals a well-developed, well-nourished, morbidly obese black male in no apparent distres s at this time. HEENT: Reveals normocephalic, nontraumatic cranium. Pupils equally round and reactive. Extraocula r movements intact. Nose and throat are slightly dry. NECK: Supple, without masses, nodes or bruits. LUNGS: Chest is clear to auscultation. No rales, no rhonchi, no wheezes are heard. CARDIOVASCULAR: Reveals a regular rate and rhythm without murmurs, gallops or rubs. ABDOMEN: Morbidly obese, soft, nontender. No rebound or guarding is noted. : Deferred. EXTREMITIES: Reveal continued lymphedema, dressings over his heel, fifth metatarsal and cath. He a lso has chronic venous insufficiency with lymphedema. IMPRESSION: 1. Osteomyelitis with diabetic foot of the left foot. 2. Vancomycin IV 3 times a week after dialysis. 3. Ciprofloxacin and Flagyl until 07/27/2017. 4. Diabetic neuropathy with improvement with gabapentin. 5. Hypertension, well controlled. 6. Peripheral vascular disease, status post PTCA and stent placement in the past. 7. Sick sinus syndrome, status post pacemaker. 8. End-stage renal disease on hemodialysis 3 times a week. 9. Morbid obesity. 10. Generalized weakness. PLAN: 1. Continue dialysis 3 times a week. 2. Continue Accu-Cheks a.c. and at bedtime. 3. Follow the patient's blood pressure closely. 4. CBC, C-reactive protein, CMP and sed rate to Dr. Vásquez each week. We will order those today wit h dialysis. 5. Wound care with Dr. Smith weekly, I believe his appointment is set up for tomorrow or the next d ay. 6. Cardiology appointment next week. 7. Possible wound VAC in the future.
[2017-06-30] MEDS: Heparin 5,000 UNITS/ML VIAL SC SCH ×2 (08:13→20:44)
[2017-06-30] MEDS: Carvedilol 25 MG TAB PO SCH ×2 (08:13→20:44)
[2017-06-30] MEDS: metroNIDAZOLE 500 MG TAB PO SCH ×2 (08:15→20:43)
[2017-06-30] MEDS: cloNIDine HCl 0.1 MG TAB PO SCH (08:16)
[2017-06-30] MEDS: Famotidine 20 MG TAB PO SCH (08:16)
[2017-06-30] MEDS: Cipro 250 MG TAB PO SCH ×2 (08:16→20:44)
[2017-06-30] MEDS: Clopidogrel Bisulfate 75 MG TAB PO SCH (08:16)
[2017-06-30] MEDS: Insulin NPH/Reg Insulin Hm 300 UNITS/3 ML VIAL SC SCH (08:17)
[2017-06-30] MEDS: Gabapentin 300 MG CAP PO SCH (20:44)
[2017-06-30] MEDS: Atorvastatin Calcium 20 MG TAB PO SCH (20:44)
[2017-07-01] MEDS: Acetaminophen 500 MG TAB PO PRN ×2 (06:51→21:20)
[2017-07-01] MEDS: traMADol HCl 50 MG TAB PO PRN ×2 (06:52→21:18)
[2017-07-01] MEDS: metroNIDAZOLE 500 MG TAB PO SCH ×4 (07:42→21:19)
[2017-07-01] MEDS: cloNIDine HCl 0.1 MG TAB PO SCH (07:43)
[2017-07-01] MEDS: Clopidogrel Bisulfate 75 MG TAB PO SCH (07:45)
[2017-07-01] MEDS: Carvedilol 25 MG TAB PO SCH ×2 (07:45→21:19)
[2017-07-01] MEDS: Cipro 250 MG TAB PO SCH ×2 (07:45→21:19)
[2017-07-01] MEDS: Heparin 5,000 UNITS/ML VIAL SC SCH ×2 (07:46→21:17)
[2017-07-01] MEDS: Insulin NPH/Reg Insulin Hm 300 UNITS/3 ML VIAL SC SCH ×2 (07:46→16:32)
[2017-07-01] MEDS: Famotidine 20 MG TAB PO SCH (07:47)
[2017-07-01] MEDS: HumaLOG 300 UNITS/3 ML VIAL SC PRN (11:46)
[2017-07-01] MEDS: Atorvastatin Calcium 20 MG TAB PO SCH (21:19)
[2017-07-01] MEDS: Gabapentin 300 MG CAP PO SCH (21:20)
--- NOTE | 2017-07-01 23:36 | PRG ---
DATE OF SERVICE: 07/01/2017 DATE OF ADMISSION: 06/18/2017 SUBJECTIVE: Mr. Wells is a very pleasant 61-year-old morbidly obese black male transferred from [facility] with osteomyelitis. He has had end-stage renal disease and is on dialysi s on Wednesday, Wednesday, and Fridays. He was transferred to [place] to see Dr. Back, the [facility] [place] [facility] and she felt that there was some dressing changes needed to change, for which jim collier is in a 4-layer wrap and will have his dressings changed twice a week. She will also see him back in approximately 2 weeks. Patient states he is doing well. He indicated that she thought his wounds were doing very well and healing well. OBJECTIVE: Vital signs today reveal blood pressure is 113/58, pulse 68-70, respirations 18-20, O2 s at 95%-96%, T-max is 96.8. LABORATORY DATA: Today reveal blood sugar this morning fasting 105, before lunch 154, before supper 123. Weight today was 347 pounds. PHYSICAL EXAMINATION: GENERAL: Reveals a well-developed, well-nourished, morbidly obese black male in no apparent distres s at this time. He is very pleased that his wounds are doing better. HEENT: Reveals normocephalic, nontraumatic cranium. Pupils are equally round and reactive. Extrao cular movements intact. Nose and throat are slightly dry. NECK: Supple without masses, nodes, or bruits. CHEST: Clear to auscultation. No rales, rhonchi, or wheezes are heard. CARDIOVASCULAR: Heart reveals a regular rate and rhythm without murmurs, gallops, or rubs. ABDOMEN: Obese, soft, nontender without organomegaly. Normal bowel sounds are noted. No rebound o r guarding is noted. : Deferred. EXTREMITIES: Reveal no clubbing, cyanosis, or edema. The patient's legs are wrapped bilaterally. He has good dressing. He has a special dressing over his heel fifth metatarsal and calf. He has so me chronic venous insufficiency with lymphedema. IMPRESSION: 1. Osteomyelitis with diabetic foot on the left foot. 2. Vancomycin IV 3 times a week after dialysis. 3. Ciprofloxacin 250 b.i.d. and Flagyl 250 t.i.d. until 07/27/2017. 4. Diabetic neuropathy with improved with gabapentin. 5. Hypertension, well controlled. 6. Peripheral vascular disease, status post percutaneous transluminal coronary angioplasty and sten t placement in the past. 7. Sick sinus syndrome, status post AICD. 8. End-stage renal disease on hemodialysis 3 times a week. 9. Morbid obesity. 10. Generalized weakness. PLAN: 1. Continue dialysis 3 times a week on Wednesday, Wednesday, and Wednesday. 2. See Dr. Back in 2 weeks from today, which will be on . 3. Continue Accu-Cheks a.c. and at bedtime. 4. Follow patient's blood pressure closely. 5. CBC, C-reactive protein, CMP, and sed rate per Dr. Vásquez should have been drawn at dialysis yest erday. We are awaiting for results. 6. Wound care with Dr. Back in 2 weeks. 7. Cardiology appointment next week. 8. Possible wound VAC in the future is not ruled out.
[2017-07-02] MEDS: Carvedilol 25 MG TAB PO SCH ×2 (08:24→21:21)
[2017-07-02] MEDS: Insulin NPH/Reg Insulin Hm 300 UNITS/3 ML VIAL SC SCH ×2 (08:24→17:10)
[2017-07-02] MEDS: metroNIDAZOLE 500 MG TAB PO SCH ×3 (08:24→21:23)
[2017-07-02] MEDS: Famotidine 20 MG TAB PO SCH (08:25)
[2017-07-02] MEDS: Cipro 250 MG TAB PO SCH ×2 (08:25→21:21)
[2017-07-02] MEDS: Heparin 5,000 UNITS/ML VIAL SC SCH ×2 (08:25→21:20)
[2017-07-02] MEDS: cloNIDine HCl 0.1 MG TAB PO SCH (08:25)
[2017-07-02] MEDS: Clopidogrel Bisulfate 75 MG TAB PO SCH (08:25)
[2017-07-02] MEDS: HumaLOG 300 UNITS/3 ML VIAL SC PRN (17:11)
[2017-07-02] MEDS: Gabapentin 300 MG CAP PO SCH (21:20)
[2017-07-02] MEDS: traMADol HCl 50 MG TAB PO PRN (21:21)
[2017-07-02] MEDS: Atorvastatin Calcium 20 MG TAB PO SCH (21:21)
[2017-07-02] MEDS: Acetaminophen 325 MG TAB PO PRN (21:21)
--- NOTE | 2017-07-02 23:37 | PRG ---
DATE OF ADMISSION: 06/18/2017 DATE OF SERVICE: 07/02/2017 HISTORY OF PRESENT ILLNESS: Mr. Wells is a very pleasant 61-year-old obese black male transferred fr [facility] for dialysis 3 times a week, but mainly for IV antibiotics and ora l antibiotics for his osteomyelitis. He was also transferred here for lymphedema care and wound car e. He is followed by Dr. Back every week or two, the metabolic specialist at [facility]. SUBJECTIVE: The patient states he just got back from dialysis and he had a good dialysis. He did g et his vancomycin. He said his level is like 15.2 over there. He has no complaints except he is hu ngry and he is glad to be back here. PHYSICAL EXAMINATION: VITAL SIGNS: Reveal blood pressure 129/61 this morning, pulse 61-69, respirations 19-20, O2 sat 97% -98%. Weight is 347 pounds. GENERAL APPEARANCE: This is a well-developed, well-nourished, very pleasant, obese black male in no apparent distress at this time. HEENT: Reveals normocephalic, nontraumatic cranium. Pupils are equally round and reactive. Extrao cular movements intact. Nose and throat are slightly dry. NECK: Supple, without masses, nodes or bruits. CHEST: Clear to auscultation. No rales, rhonchi or wheezes are heard. HEART: Reveals a regular rate and rhythm without murmurs, gallops or rubs. ABDOMEN: Obese, soft, nontender with normal bowel sounds. No rebound or guarding is noted. : Exam is deferred. EXTREMITIES: Reveal no clubbing, cyanosis or edema. Patient's legs are wrapped bilaterally for his lymphedema. He has good dressings and those wrappings and dressings will be changed 2 times a week , I believe on Wednesday and Wednesday. The patient's lesions are slowly getting better. LABORATORY DATA: This morning reveal fasting sugar 105, before lunch 154, before supper 123, before bedtime 121 last night, fasting this morning is 120. IMPRESSION: 1. Osteomyelitis with diabetic foot on left foot, presently on vancomycin after each dialysis and C ipro 250 b.i.d. and Flagyl 250 t.i.d. until 07/27/2017. 2. Diabetic neuropathy, which is somewhat better with gabapentin. 3. Hypertension, well controlled. 4. Peripheral vascular disease, status post percutaneous transluminal coronary angioplasty and sten t placement in the past. 5. Sick sinus syndrome, status post automatic implantable cardioverter-defibrillator. 6. End-stage renal disease on hemodialysis 3 times a week. 7. Morbid obesity. 8. Generalized weakness. PLAN: 1. Dialysis 3 times a week on Wednesday, Wednesday, and Wednesday. 2. See Dr. Back 2 weeks from yesterday. 3. Continue Accu-Cheks a.c. and at bedtime. 4. Follow patient's blood pressure closely. 5. CBC, C-reactive protein, CMP, and sed rate per Dr. Vásquez that will be drawn at dialysis on , still have not seen those results. 6. Wound care with Dr. Back in 2 weeks. 7. Cardiology appointment next week. 8. Possible wound VAC in the future is not as apparent.
[2017-07-03] MEDS: metroNIDAZOLE 500 MG TAB PO SCH ×3 (08:18→21:31)
[2017-07-03] MEDS: Heparin 5,000 UNITS/ML VIAL SC SCH ×2 (08:18→21:29)
[2017-07-03] MEDS: Clopidogrel Bisulfate 75 MG TAB PO SCH (08:19)
[2017-07-03] MEDS: cloNIDine HCl 0.1 MG TAB PO SCH (08:20)
[2017-07-03] MEDS: Cipro 250 MG TAB PO SCH ×2 (08:20→21:30)
[2017-07-03] MEDS: Carvedilol 25 MG TAB PO SCH ×2 (08:20→21:32)
[2017-07-03] MEDS: Famotidine 20 MG TAB PO SCH (08:20)
[2017-07-03] MEDS: Insulin NPH/Reg Insulin Hm 300 UNITS/3 ML VIAL SC SCH ×2 (08:21→16:58)
[2017-07-03] MEDS: HumaLOG 300 UNITS/3 ML VIAL SC PRN ×2 (11:43→16:59)
[2017-07-03] MEDS: traMADol HCl 50 MG TAB PO PRN (21:30)
[2017-07-03] MEDS: Acetaminophen 500 MG TAB PO PRN (21:33)
[2017-07-03] MEDS: Atorvastatin Calcium 20 MG TAB PO SCH (21:33)
[2017-07-03] MEDS: Gabapentin 300 MG CAP PO SCH (21:33)
--- NOTE | 2017-07-03 22:26 | PRG ---
DATE OF SERVICE: 07/03/2017 Mr. Wells is a very pleasant 61-year-old morbidly obese black male from [place], [place] that w as transferred here to continue IV antibiotics to oral antibiotics for osteomyelitis. He was also t ransferred here for physical therapy and occupational therapy and for lymphedema and wound care. He is followed by Dr. Back every 2 weeks. SUBJECTIVE: The patient states he is doing well. He has no complaints. He took it easy today and lay in bed and kept his feet elevated so he can get his lymphedema down. He has no complaints today . He is eating well. PHYSICAL EXAMINATION: VITAL SIGNS: Reveal blood pressure is 155/68, pulse 68-72, respirations 16-20, O2 sat 96-97% on dana m air, temperature 97.3. GENERAL: This is a well-developed, morbidly obese black male in no apparent distress at this time. HEENT: Reveals normocephalic, nontraumatic cranium. Pupils equal, round, and reactive. Extraocula r movements intact. Nose and throat are moist tonight. NECK: Supple, without masses, nodes or bruits. LUNGS: Chest is clear to auscultation. There are distant, but no rales, rhonchi or wheezes are hea rd. CARDIOVASCULAR: Reveals a regular rate and rhythm without murmurs, gallops or rubs. ABDOMEN: Morbidly obese. Nontender with normal bowel sounds in all 4 quadrants. No rebound or gua rding is noted. GENITOURINARY: Deferred. EXTREMITIES: Reveal both legs are wrapped bilaterally for his lymphedema. He has dressings over ose also. Patient has his dressing changes twice a week. The patient's sores are slowly better as he was seen by his Wound Care doctor. LABORATORY DATA: No labs were done today except for sugars, which are actually good. IMPRESSION: 1. Osteomyelitis with diabetic foot of the left foot, presently on vancomycin after each dialysis a nd Cipro 250 b.i.d. and Flagyl 250 t.i.d. until 07/27/1970. 2. Diabetic neuropathy. 3. Hypertension. 4. Peripheral vascular disease, status post percutaneous transluminal coronary angioplasty and sten t placement in the past. 5. Sick sinus syndrome, status post automatic implantable cardioverter defibrillator. 6. End-stage renal disease on hemodialysis 3 times a week. 7. Morbid obesity. 8. Generalized weakness. PLAN: 1. Continue dialysis on Wednesday, Wednesday, and Wednesday. 2. See Dr. Back in 2 weeks from yesterday. 3. Continue Accu-Cheks a.c. and at bedtime. 4. Followup patient's blood pressure closely. 5. CBC, C-reactive protein, CMP and sed rate per Dr. Vásquez and send those to him and to me. 6. Wound care with Dr. Back in 2 weeks. 7. Cardiology appointment next week. 8. Possible wound VAC is not in the future.
[2017-07-04] MEDS: Insulin NPH/Reg Insulin Hm 300 UNITS/3 ML VIAL SC SCH ×2 (08:01→16:35)
[2017-07-04] MEDS: cloNIDine HCl 0.1 MG TAB PO SCH (09:01)
[2017-07-04] MEDS: Clopidogrel Bisulfate 75 MG TAB PO SCH (09:02)
[2017-07-04] MEDS: Carvedilol 25 MG TAB PO SCH ×2 (09:02→21:22)
[2017-07-04] MEDS: Cipro 250 MG TAB PO SCH ×2 (09:02→21:22)
[2017-07-04] MEDS: metroNIDAZOLE 500 MG TAB PO SCH ×3 (09:02→21:20)
[2017-07-04] MEDS: Heparin 5,000 UNITS/ML VIAL SC SCH ×2 (09:04→21:20)
[2017-07-04] MEDS: Famotidine 20 MG TAB PO SCH (09:04)
[2017-07-04] MEDS: HumaLOG 300 UNITS/3 ML VIAL SC PRN (16:36)
[2017-07-04] MEDS: Gabapentin 300 MG CAP PO SCH (21:20)
[2017-07-04] MEDS: traMADol HCl 50 MG TAB PO PRN (21:20)
[2017-07-04] MEDS: Atorvastatin Calcium 20 MG TAB PO SCH (21:20)
--- NOTE | 2017-07-05 | PRG ---
DATE OF SERVICE: 07/04/2017 DATE OF ADMISSION: 06/18/2017 HISTORY: Mr. Wells is a very pleasant 61-year-old morbidly obese black male now was admitted and tra nsferred from [facility] for physical therapy and occupational therapy. Continu e IV vancomycin and oral medications. He was also transferred here for lymphedema and wound care. SUBJECTIVE: The patient states he had a good day. He is ready for dialysis again tomorrow. He has family that is over this evening and some nieces and nephews. He states he still is eating well, l ymphedema seems to be doing much better. PHYSICAL EXAMINATION: VITAL SIGNS: Reveal blood pressure is 139/63, pulse 65-74, respirations 16-20, and O2 saturation 98 %-99% on room air, T-max 98.1. Point of care sugars reveal sugar this morning was 115, before lunch 122, before supper 178. GENERAL: This is a well-developed, well-nourished, morbidly obese very pleasant black male in no ap parent distress at this time. HEENT: Reveals normocephalic, nontraumatic cranium. Pupils are equally round and reactive. Extrao cular movements intact. Nose and throat are moist. NECK: Supple without masses, nodes, or bruits. CHEST: Clear to auscultation. No rales, no rhonchi, no wheezes are heard. Breath sounds are still distant. CARDIOVASCULAR: Heart reveals a regular rate and rhythm without murmurs, gallops, or rubs. ABDOMEN: Morbidly obese. It is soft, nontender with normal bowel sounds. No rebound or guarding i s noted. : Deferred. EXTREMITIES: Reveal legs are still wrapped for his lymphedema and 4 layer wraps and this supposed t o be changed twice a week. Dr. Back will see him in a week and a half. LABORATORY DATA: The labs were done except for sugars. IMPRESSION: 1. Osteomyelitis with diabetic left foot, presently on vancomycin after each dialysis and Cipro 250 b.i.d. and Flagyl 250 t.i.d. until 07/27/2017. 2. Diabetic neuropathy. 3. Hypertension. 4. Peripheral vascular disease, status post percutaneous transluminal coronary angioplasty and sten t placement in the past. 5. Sick sinus syndrome, status post automatic implantable cardioverter defibrillator. 6. End-stage renal disease on hemodialysis, 3 times a week. 7. Morbid obesity. 8. Generalized weakness. PLAN: 1. Continue dialysis tomorrow, Wednesday, and Wednesday. 2. See Dr. Back in a week and a half. 3. Continue Accu-Cheks a.c. and at bedtime. 4. Follow patient's blood pressure closely. 5. Continue CBC, C-reactive protein, CMP, and sed rate per Dr. Vásquez and send those to him weekly. 6. Wound care Dr. Back in approximately 10 days. 7. Cardiology Department in the next week.
[2017-07-05] MEDS: Clopidogrel Bisulfate 75 MG TAB PO SCH (08:24)
[2017-07-05] MEDS: Famotidine 20 MG TAB PO SCH (08:24)
[2017-07-05] MEDS: Heparin 5,000 UNITS/ML VIAL SC SCH ×2 (08:24→21:17)
[2017-07-05] MEDS: Cipro 250 MG TAB PO SCH ×2 (08:25→21:19)
[2017-07-05] MEDS: Insulin NPH/Reg Insulin Hm 300 UNITS/3 ML VIAL SC SCH ×2 (08:25→16:47)
[2017-07-05] MEDS: Carvedilol 25 MG TAB PO SCH ×2 (08:27→21:18)
[2017-07-05] MEDS: cloNIDine HCl 0.1 MG TAB PO SCH (08:28)
[2017-07-05] MEDS: metroNIDAZOLE 500 MG TAB PO SCH ×3 (08:32→21:18)
--- NOTE | 2017-07-05 10:26 | PRG ---
DATE OF SERVICE: 07/05/2017 HISTORY OF PRESENT ILLNESS: Mr. Wells is a very pleasant 61-year-old black male that was transferred from [facility] for IV vancomycin, oral Cipro, oral Flagyl. He has also had si gnificant lymphedema and was transferred here for wound care and lymphedema wraps. He also has end- stage renal disease and needs dialysis on Wednesday, Wednesday, and Wednesday. SUBJECTIVE: The patient states he had a good day yesterday and the day before. He has no complaint s. He is on his way to dialysis this morning. They are to pick him up and around 10. He has no co mplaints today, states he is eating well. VITAL SIGNS: Blood pressure is 132/58, pulse 66-68, respirations 18-19, O2 sat 94-98% on room air, temperature max 98.7. LABORATORY: Reveal a blood sugar this morning was 121, last night before bedtime 188, before supper 178, before lunch 122, yesterday morning fasting 115. PHYSICAL EXAMINATION: GENERAL: This is a well-developed, well-nourished, very pleasant black male in no apparent distress at this time. HEENT: Reveals normocephalic, nontraumatic cranium. Pupils are equally round and reactive. Extrao cular movements intact. Nose and throat are slightly dry. NECK: Supple, without masses, nodes or bruits. LUNGS: Chest is clear to auscultation. No rales, rhonchi, wheezes are noted. It is noted the kassandra th sounds are distant. CARDIOVASCULAR: Reveals a regular rate and rhythm. No murmurs, gallops or rubs are noted. ABDOMEN: Morbidly obese, soft, nontender. Normal bowel sounds are noted. No rebound or guarding i s noted. : Deferred. EXTREMITIES: Reveal lymphedema wraps are presently in place which were 4 layer wraps at this time, to be changed twice a week. Labs were done, were mainly sugars. Will have labs tomorrow including CBC, CMP, CRP and sed rate. IMPRESSION: 1. Osteomyelitis secondary to diabetic left foot, presently on vancomycin after dialysis and Cipro 250 b.i.d. and Flagyl 250 t.i.d. until 07/27/2017. 2. Diabetic neuropathy. 3. Hypertension. 4. Peripheral vascular disease, status post percutaneous transluminal coronary angioplasty and sten t placement. 5. Sick sinus syndrome, status post AICD. 6. End-stage renal disease on dialysis 3 times a week, Wednesday, Wednesday and Wednesday. 7. Morbid obesity. 8. Generalized weakness. PLAN: 1. Dialysis today, Wednesday, and Wednesday. 2. Continue Accu-Cheks a.c. and at bedtime. 3. Labs tomorrow morning including CBC, C-reactive protein, CMP and sed rate and copy to Dr. Vásquez. 4. Wound care with Dr. Smith next week. 5. Cardiology appointment with his die presser sometime this week.
[2017-07-05] MEDS: HumaLOG 300 UNITS/3 ML VIAL SC PRN (17:11)
[2017-07-05] MEDS: traMADol HCl 50 MG TAB PO PRN (21:18)
[2017-07-05] MEDS: Acetaminophen 500 MG TAB PO PRN (21:18)
[2017-07-05] MEDS: Gabapentin 300 MG CAP PO SCH (21:19)
[2017-07-05] MEDS: Atorvastatin Calcium 20 MG TAB PO SCH (21:19)
[2017-07-06 05:25] LABS: Band 2 % (5-11); Eosinophils 1 % (0-10); Hemoglobin 10.4 g/dL (14.0-18.0); Lymphocytes 24 % (21-51); MDiff Complete? YES; Mean Corpuscular HGB CONC 30.7 g/dL (32.0-36.0); Mean Corpuscular Hemoglobin 26.4 pg (27.0-31.0); Mean Corpuscular Volume 86.1 fl (80.0-94.0); Mean Platelet Volume 6.9 fL (7.4-10.4); Monocytes 14 % (0-10); Neutrophil 58 % (42-75); PLT Morphology Comment Appears Adequate; Platelet Count 139 thou/uL (130-400); RBC Distribution Width 17.2 % (11.5-14.5); RBC Morphology Normal; Reactive Lymphocytes 1 % (0-10); Red Blood Cell (RBC) Count 3.92 mill/uL (4.70-6.10); White Blood Cell (WBC) Count 5.4 thou/uL (4.8-10.8)
[2017-07-06 05:37] LABS: ALT (SGPT) 8 U/L (8-55); AST (SGOT) 13 U/L (5-34); Albumin 2.8 g/dL (3.4-4.8); Alkaline Phosphatase 68 U/L (40-150); Anion Gap 11 mmol/L (10-20); BUN (Urea Nitrogen) 44 mg/dL (8.4-25.7); Bilirubin, Total 0.3 mg/dL (0.2-1.2); CRP (Inflammatory) 1.26 mg/dL (= or < 0.5); Calc. Creatinine Clearance 31 mL/min (70-130); Calcium 8.4 mg/dL (7.8-10.44); Carbon Dioxide 33 mmol/L (23-31); Chloride 97 mmol/L (98-107); Estimated GFR-MDRD 13; Globulin 4.1 g/dL (2.4-3.5); Glucose 118 mg/dL (80-115); Potassium 4.4 mmol/L (3.5-5.1); Protein, Total 6.9 g/dL (5.8-8.1); Sodium 137 mmol/L (136-145)
[2017-07-06] MEDS: Insulin NPH/Reg Insulin Hm 300 UNITS/3 ML VIAL SC SCH ×2 (08:55→17:11)
[2017-07-06] MEDS: Heparin 5,000 UNITS/ML VIAL SC SCH ×2 (08:57→21:26)
[2017-07-06] MEDS: metroNIDAZOLE 500 MG TAB PO SCH ×3 (08:58→21:27)
[2017-07-06] MEDS: Famotidine 20 MG TAB PO SCH (09:00)
[2017-07-06] MEDS: Clopidogrel Bisulfate 75 MG TAB PO SCH (09:01)
[2017-07-06] MEDS: Carvedilol 25 MG TAB PO SCH ×2 (09:01→21:27)
[2017-07-06] MEDS: cloNIDine HCl 0.1 MG TAB PO SCH (09:02)
[2017-07-06] MEDS: Cipro 250 MG TAB PO SCH ×2 (09:03→21:27)
--- NOTE | 2017-07-06 10:21 | PRG ---
DATE OF SERVICE: 07/06/2017 HISTORY OF PRESENT ILLNESS: Mr. Wells is a very pleasant 61-year-old black male that was admitted to [facility] with cellulitis bilateral lower extremities secondary to his severe lymphedema. He was diuresed, started on IV vancomycin and oral Cipro and oral Flagyl. He has end-s tage renal disease and has dialysis on Wednesday, Wednesday, and Wednesday. He was transferred here for d ialysis, vancomycin until 07/27/2017 and Cipro and Flagyl orally until 07/27/2017. SUBJECTIVE: The patient states he had really good day yesterday. He had his dialysis. He is feeli ng well. He states he already has his bilateral lower extremities rewrapped and he said they were m uch smaller and they are doing well and they are healing well. He has no complaints today. VITAL SIGNS: Blood pressure this morning was 135/63, pulse 67-75, respirations 18-20, O2 sat 93-97% . T-max is 97.3. LABORATORY: Revealed white count 5400, hemoglobin 10.4, hematocrit 33.8 with platelet count of 139, 000. His sed rate was 91. We do not have a previous sed rate because the dialysis unit when they d rew his labs last week did not send them to use and we are still requesting. LABORATORY: Sodium 137, potassium 4.3, chloride 97, carbon dioxide 33 with a BUN of 44, creatinine 5.51. His sugars are still very good with a fasting this morning of 118. His C-reactive protein to day is 1.26 and last time 2 weeks ago was 2.19. PHYSICAL EXAMINATION: GENERAL: This is a well-developed, well-nourished, morbidly obese black male in no apparent distres s at this time. HEENT: Reveals normocephalic, nontraumatic cranium. Pupils are equally round and reactive. Extrao cular movements intact. Nose and throat are moist. NECK: Supple, without masses, nodes or bruits. LUNGS: Chest is clear to auscultation, no rales, rhonchi, wheezes or cough is heard. Breath sounds are noted to be distant. CARDIOVASCULAR: Heart reveals a regular rate and rhythm without murmurs, gallops or rubs. ABDOMEN: Morbidly obese, soft, normal bowel sounds are noted. No rebound or guarding is noted. GENITOURINARY: Deferred. EXTREMITIES: Reveal rewrapped lower extremities with lymphedema in the legs, but obviously less edwin matous. Four layers of wraps were done, again that will be changed twice a week. IMPRESSION: 1. Osteomyelitis secondary to diabetic left foot, presently on vancomycin after dialysis at dialysi s. 2. Ciprofloxacin 250 mg b.i.d. 3. Flagyl 250 mg t.i.d. All these medications until 07/27/2017. 4. Diabetic neuropathy. 5. Hypertension. 6. Peripheral vascular disease. 7. Status post percutaneous transluminal coronary artery angioplasty and stent placement. 8. Sick sinus syndrome, status post AICD. 9. End-stage renal disease on dialysis 3 times a week on Wednesday, Wednesday and Wednesday. 10. Morbid obesity. 11. Generalized weakness. PLAN: 1. Dialysis again tomorrow. 2. Continue Accu-Cheks a.c. and at bedtime. 3. Continue labs once weekly. 4. Wound care per Dr. Smith next week. 5. Cardiology, sometimes possibly this week.
[2017-07-06] MEDS: HumaLOG 300 UNITS/3 ML VIAL SC PRN (11:49)
[2017-07-06] MEDS: Atorvastatin Calcium 20 MG TAB PO SCH (21:26)
[2017-07-06] MEDS: Gabapentin 300 MG CAP PO SCH (21:26)
[2017-07-06] MEDS: Acetaminophen 500 MG TAB PO PRN (21:26)
[2017-07-06] MEDS: traMADol HCl 50 MG TAB PO PRN (21:28)
[2017-07-07] MEDS: Insulin NPH/Reg Insulin Hm 300 UNITS/3 ML VIAL SC SCH ×2 (08:33→22:14)
[2017-07-07] MEDS: Famotidine 20 MG TAB PO SCH (08:35)
[2017-07-07] MEDS: Carvedilol 25 MG TAB PO SCH ×2 (08:35→20:57)
[2017-07-07] MEDS: Heparin 5,000 UNITS/ML VIAL SC SCH ×2 (08:35→20:58)
[2017-07-07] MEDS: metroNIDAZOLE 500 MG TAB PO SCH ×3 (08:36→23:30)
[2017-07-07] MEDS: Clopidogrel Bisulfate 75 MG TAB PO SCH (08:37)
[2017-07-07] MEDS: Cipro 250 MG TAB PO SCH ×2 (08:37→20:57)
[2017-07-07] MEDS: cloNIDine HCl 0.1 MG TAB PO SCH (08:38)
[2017-07-07] MEDS: Acetaminophen 500 MG TAB PO PRN (19:41)
[2017-07-07] MEDS ORDERED: metroNIDAZOLE 500 MG TAB PO SCH (19:45)
[2017-07-07] MEDS: Atorvastatin Calcium 20 MG TAB PO SCH (20:57)
[2017-07-07] MEDS: Gabapentin 300 MG CAP PO SCH (20:57)
[2017-07-08] MEDS: Insulin NPH/Reg Insulin Hm 300 UNITS/3 ML VIAL SC SCH ×2 (08:14→17:01)
[2017-07-08] MEDS: Heparin 5,000 UNITS/ML VIAL SC SCH ×2 (08:14→21:49)
[2017-07-08] MEDS: Clopidogrel Bisulfate 75 MG TAB PO SCH (08:15)
[2017-07-08] MEDS: Cipro 250 MG TAB PO SCH ×2 (08:16→21:48)
[2017-07-08] MEDS: Carvedilol 25 MG TAB PO SCH ×2 (08:17→21:48)
[2017-07-08] MEDS: cloNIDine HCl 0.1 MG TAB PO SCH (08:17)
[2017-07-08] MEDS: Famotidine 20 MG TAB PO SCH (08:18)
[2017-07-08] MEDS: metroNIDAZOLE 500 MG TAB PO SCH ×3 (08:18→21:47)
--- NOTE | 2017-07-08 17:56 | PRG ---
DATE OF SERVICE: 07/06/2017 HISTORY OF PRESENT ILLNESS: Mr. Wells is a very pleasant 61-year-old black male that had a bilateral lower extremity cellulitis. He also has severe lymphedema. He was diuresed, started on IV vancomy alyse, oral Cipro and Flagyl and eventually was transferred here. He already is to remain end-stage r enal disease, hemodialysis on Wednesday, Wednesday, and Wednesday. He is to have a CBC, Chem-7, sedimenta tion rate and C-reactive protein weekly and sent to Dr. Vásquez, he is supposed to have a Cardiology c onsult and supposed to see Dr. Guajardo when that is finished, so he can have a dialysis fistula in [facility]. SUBJECTIVE: The patient states he called Dr. Babcock office and Dr. Guajardo supposed to be doing h is dialysis fistula after he gets cleared by Dr. Babcock. VITAL SIGNS: Today reveal blood pressure 154/76, pulse 74-87, respirations 20, O2 sat 96%, temperat ure 98.1. LABORATORY DATA: Today reveals fasting sugar this morning 107, before lunch 121. PHYSICAL EXAMINATION: GENERAL: This is a well-developed, well-nourished, morbidly obese, very pleasant black male, in no apparent distress at this time. HEENT: Reveals normocephalic, nontraumatic cranium. Pupils are equally round, reactive. Extraocul ar movements intact. Nose and throat are slightly dry. NECK: Supple, without masses, nodes or bruits. CHEST: Clear to auscultation. No rales, rhonchi or wheezes, or cough is heard. CARDIOVASCULAR: Heart reveals a regular rate and rhythm without murmurs, gallops or rubs. ABDOMEN: Morbidly obese, soft, nontender. No rebound or guarding is noted. GENITOURINARY: Deferred. EXTREMITIES: Reveal no clubbing, cyanosis or edema. The patient does have bilateral lower extremit y 4 layer wraps, which were done and supposed to be changed twice a week by PT. IMPRESSION: 1. Osteomyelitis secondary to diabetic foot, presently on vancomycin after dialysis. 2. Ciprofloxacin 250 mg b.i.d. until 07/27/2017. 3. Flagyl 250 mg t.i.d. until 07/27/2017. 4. Diabetic neuropathy. 5. Hypertension. 6. Peripheral vascular disease. 7. Status PTCA and stent placement. 8. Sick sinus syndrome, status post AICD. 9. End-stage renal disease on hemodialysis 3 times a week on Wednesday, Wednesday, and Wednesday. 10. Morbid obesity. 11. Generalized weakness. PLAN: 1. Continue dialysis Wednesday, Wednesday, and Wednesday. 2. Continue Accu-Cheks a.c. and at bedtime. 3. Continue labs once weekly to be sent to Dr. Vásquez. 4. Wound care next week by Dr. Back for wound care. 5. Cardiology evaluation, possibly with Dr. Babcock, so that the patient could not get approved to have his dialysis fistula placed by Dr. Guajardo. 6. Continue deep venous thrombosis prophylaxis. 7. Continue stress ulcer prophylaxis. 8. Continue decubitus precautions. 9. Continue physical therapy and occupational therapy.
[2017-07-08] MEDS: Gabapentin 300 MG CAP PO SCH (21:47)
[2017-07-08] MEDS: Acetaminophen 500 MG TAB PO PRN (21:48)
[2017-07-08] MEDS: traMADol HCl 50 MG TAB PO PRN (21:48)
[2017-07-08] MEDS: Atorvastatin Calcium 20 MG TAB PO SCH (21:49)
[2017-07-09] MEDS: Carvedilol 25 MG TAB PO SCH ×2 (08:17→21:13)
[2017-07-09] MEDS: cloNIDine HCl 0.1 MG TAB PO SCH (08:17)
[2017-07-09] MEDS: Heparin 5,000 UNITS/ML VIAL SC SCH ×2 (08:23→21:14)
[2017-07-09] MEDS: Insulin NPH/Reg Insulin Hm 300 UNITS/3 ML VIAL SC SCH ×2 (08:23→16:56)
[2017-07-09] MEDS: metroNIDAZOLE 500 MG TAB PO SCH ×3 (08:27→21:12)
[2017-07-09] MEDS: Clopidogrel Bisulfate 75 MG TAB PO SCH (08:27)
[2017-07-09] MEDS: Famotidine 20 MG TAB PO SCH (08:27)
[2017-07-09] MEDS: Cipro 250 MG TAB PO SCH ×2 (08:28→21:13)
[2017-07-09] MEDS: Acetaminophen 325 MG TAB PO PRN (18:50)
[2017-07-09] MEDS: Atorvastatin Calcium 20 MG TAB PO SCH (21:13)
[2017-07-09] MEDS: Gabapentin 300 MG CAP PO SCH (21:13)
[2017-07-10] MEDS: Acetaminophen 325 MG TAB PO PRN (04:30)
[2017-07-10] MEDS: Heparin 5,000 UNITS/ML VIAL SC SCH ×2 (08:40→20:28)
[2017-07-10] MEDS: Insulin NPH/Reg Insulin Hm 300 UNITS/3 ML VIAL SC SCH ×2 (08:40→16:55)
[2017-07-10] MEDS: metroNIDAZOLE 500 MG TAB PO SCH ×3 (08:42→20:26)
[2017-07-10] MEDS: cloNIDine HCl 0.1 MG TAB PO SCH (08:42)
[2017-07-10] MEDS: Famotidine 20 MG TAB PO SCH (08:42)
[2017-07-10] MEDS: Clopidogrel Bisulfate 75 MG TAB PO SCH (08:42)
[2017-07-10] MEDS: Carvedilol 25 MG TAB PO SCH ×2 (08:43→20:25)
[2017-07-10] MEDS: Cipro 250 MG TAB PO SCH ×2 (08:44→20:26)
--- NOTE | 2017-07-10 11:19 | PRG ---
DATE OF SERVICE: 07/09/2017 SUBJECTIVE: The patient is at dialysis. OBJECTIVE: VITAL SIGNS: This morning show temperature 96, pulse 74, respirations 20, O2 sats 94%, blood pressu re 142/64 after he returned from dialysis. LUNGS: Clear. CARDIAC: Examination showed regular rhythm. ABDOMEN: Soft and nontender. EXTREMITIES: Left foot is bandaged, receiving ciprofloxacin and Flagyl orally and vancomycin at pita lysis. ASSESSMENT: 1. Stable end-stage renal disease, resolving. 2. Cellulitis of both lower extremities on IV vancomycin, oral Cipro and Flagyl. 3. Coronary artery disease, status post angioplasty and stent placement. 4. Peripheral vascular disease, asymptomatic. PLAN: 1. Continue IV vancomycin at dialysis and oral Cipro and Flagyl until July 27. 2. Continue to monitor for signs of sepsis. 3. Continue to monitor for signs of fluid overload, shortness of breath or chest pain.
--- NOTE | 2017-07-10 12:48 | PRG ---
DATE OF SERVICE: 07/10/2017 SUBJECTIVE: The patient feels well, lying in bed, resting with no pain in his legs. No shortness o f breath, no chest pain or palpitation. No nausea, vomiting, or diaphoresis. OBJECTIVE: VITAL SIGNS: Shows temperature is 97, pulse 79, respirations 18, O2 sat is 94% on room air, blood p ressures 147/66. LUNGS: Clear. CARDIAC: Examination showed regular rhythm. SKIN AND EXTREMITIES: Show bilateral leg wrapped with no tenderness. NEUROLOGIC: Shows decreased sensation in toes. ASSESSMENT: 1. Resolving cellulitis and lymphedema of both lower legs on IV vancomycin and oral Cipro and Flagy l until 07/27/2017. 2. Stable congestive heart failure, well compensated. 3. Diastolic. 4. Stable end-stage renal disease, on hemodialysis Wednesday, Wednesday, Wednesday. 5. Stable diabetes with Accu-Cheks controlled to goal. PLAN: 1. Continue vancomycin, Cipro and Flagyl. 2. Continue to monitor for decompensation congestive heart failure. 3. Continue Accu-Cheks and control diabetes.
[2017-07-10] MEDS: Atorvastatin Calcium 20 MG TAB PO SCH (20:25)
[2017-07-10] MEDS: Gabapentin 300 MG CAP PO SCH (20:26)
[2017-07-10] MEDS: Acetaminophen 500 MG TAB PO PRN (20:27)
[2017-07-10] MEDS: traMADol HCl 50 MG TAB PO PRN (20:28)
--- NOTE | 2017-07-11 08:04 | PRG ---
DATE OF SERVICE: 07/11/2017 SUBJECTIVE: The patient feels well, lying in bed, no complaints of shortness of breath, chest pain or palpitations. No leg pain or joint pain. OBJECTIVE: VITAL SIGNS: Blood pressure 148/65, temperature 96, pulse 68, respirations 22, O2 saturation is 95% . Accu-Cheks range from 133-152. LUNGS: Clear. CARDIAC: Examination shows regular rhythm. ABDOMEN: Soft, nontender. SKIN and EXTREMITIES: Bandaged, but with minimal tenderness, no erythema. ASSESSMENT: 1. Resolving cellulitis, lymphedema of both lower legs on IV vancomycin and oral Cipro and Flagyl u ntil 07/27/2017. 2. Congestive heart failure, compensated, secondary to diastolic heart failure. 3. Stable end-stage renal disease on hemodialysis. 4. Stable diabetes. PLAN: Continue to monitor for symptoms of decompensated congestive heart failure. Continue Accu-Ch eks, control diabetes. Continue hemodialysis 3 times weekly with vancomycin and hemodialysis. Cont inue Cipro and Flagyl orally until 07/27.
[2017-07-11] MEDS: Cipro 250 MG TAB PO SCH ×2 (08:40→21:27)
[2017-07-11] MEDS: Famotidine 20 MG TAB PO SCH (08:41)
[2017-07-11] MEDS: cloNIDine HCl 0.1 MG TAB PO SCH (08:41)
[2017-07-11] MEDS: Carvedilol 25 MG TAB PO SCH ×2 (08:42→21:27)
[2017-07-11] MEDS: Heparin 5,000 UNITS/ML VIAL SC SCH ×2 (08:43→21:28)
[2017-07-11] MEDS: Clopidogrel Bisulfate 75 MG TAB PO SCH (08:43)
[2017-07-11] MEDS: Insulin NPH/Reg Insulin Hm 300 UNITS/3 ML VIAL SC SCH ×2 (08:44→16:45)
[2017-07-11] MEDS: metroNIDAZOLE 500 MG TAB PO SCH ×3 (08:45→21:27)
[2017-07-11] MEDS: HumaLOG 300 UNITS/3 ML VIAL SC PRN (11:25)
[2017-07-11] MEDS: traMADol HCl 50 MG TAB PO PRN (21:26)
[2017-07-11] MEDS: Gabapentin 300 MG CAP PO SCH (21:27)
[2017-07-11] MEDS: Atorvastatin Calcium 20 MG TAB PO SCH (21:27)
[2017-07-11] MEDS: Acetaminophen 500 MG TAB PO PRN (21:28)
[2017-07-12] MEDS: Insulin NPH/Reg Insulin Hm 300 UNITS/3 ML VIAL SC SCH ×2 (08:07→17:04)
[2017-07-12] MEDS: metroNIDAZOLE 500 MG TAB PO SCH ×3 (08:08→20:39)
[2017-07-12] MEDS: Heparin 5,000 UNITS/ML VIAL SC SCH ×2 (08:08→20:40)
[2017-07-12] MEDS: Famotidine 20 MG TAB PO SCH (08:09)
[2017-07-12] MEDS: Cipro 250 MG TAB PO SCH ×2 (08:09→20:38)
[2017-07-12] MEDS: Clopidogrel Bisulfate 75 MG TAB PO SCH (08:09)
[2017-07-12] MEDS: cloNIDine HCl 0.1 MG TAB PO SCH (08:12)
[2017-07-12] MEDS: Carvedilol 25 MG TAB PO SCH ×2 (08:12→20:38)
[2017-07-12] MEDS: Atorvastatin Calcium 20 MG TAB PO SCH (20:38)
[2017-07-12] MEDS: Gabapentin 300 MG CAP PO SCH (20:39)
[2017-07-12] MEDS: traMADol HCl 50 MG TAB PO PRN (20:49)
[2017-07-12] MEDS: Acetaminophen 500 MG TAB PO PRN (20:49)
[2017-07-13] MEDS: Insulin NPH/Reg Insulin Hm 300 UNITS/3 ML VIAL SC SCH ×2 (08:25→17:20)
[2017-07-13] MEDS: Heparin 5,000 UNITS/ML VIAL SC SCH ×2 (08:26→21:32)
[2017-07-13] MEDS: cloNIDine HCl 0.1 MG TAB PO SCH (08:35)
[2017-07-13] MEDS: Clopidogrel Bisulfate 75 MG TAB PO SCH (08:36)
[2017-07-13] MEDS: Cipro 250 MG TAB PO SCH ×2 (08:36→21:32)
[2017-07-13] MEDS: Carvedilol 25 MG TAB PO SCH ×2 (08:36→21:31)
[2017-07-13] MEDS: Famotidine 20 MG TAB PO SCH (08:36)
[2017-07-13] MEDS: metroNIDAZOLE 500 MG TAB PO SCH ×3 (08:37→21:31)
[2017-07-13] MEDS: HumaLOG 300 UNITS/3 ML VIAL SC PRN (11:39)
--- NOTE | 2017-07-13 19:42 | PRG ---
DATE OF SERVICE: 07/13/2017 SUBJECTIVE: The patient had dialysis, returned with no complaints, feels well. No shortness of christelle ath, chest pain, no foot pain. OBJECTIVE: Shows, VITAL SIGNS: Blood pressure 143/66, temperature 95.7, pulse 69, respirations 20, O2 sats 96%. LUNGS: Clear. CARDIAC: Showed regular rhythm. No gallops or murmurs. ABDOMEN: Soft and nontender. SKIN: Extremities are wrapped with no tenderness. ASSESSMENT: 1. Resolving cellulitis, lymphedema of both legs on IV vancomycin, oral Cipro until 07/27. 2. Congestive heart failure, well compensated. 3. Stable end-stage renal disease on hemodialysis. 4. Stable diabetes. 5. Hypertension, well controlled. PLAN: Repeat CBC and comp met in 2 days. Continue IV vancomycin at dialysis, Cipro and Flagyl oral ly until 07/27. Continue Accu-Cheks, control diabetes.
[2017-07-13] MEDS ORDERED: cloNIDine HCl 0.1 MG TAB PO SCH (21:00)
[2017-07-13] MEDS: Atorvastatin Calcium 20 MG TAB PO SCH (21:30)
[2017-07-13] MEDS: Gabapentin 300 MG CAP PO SCH (21:30)
--- NOTE | 2017-07-13 23:32 | PRG ---
DATE OF SERVICE: 07/13/2017 SUBJECTIVE: The patient feels well except for lethargy and complaining of clonidine caused her to b e sleepy when taken in the morning. No shortness of breath or chest pain. OBJECTIVE: VITAL SIGNS: Blood pressure is stable at 157/65, pulse 72, temperature 95.3, and O2 sats 96% on dana m air. LUNGS: Clear. CARDIAC: Showed regular rhythm. SKIN AND EXTREMITIES: Show wrapped with no erythema or tenderness. ASSESSMENT: 1. Resolving cellulitis, lymphedema. 2. Stable end-stage renal disease on hemodialysis 3 times weekly. 3. Hypertension, controlled with clonidine, but given 0.3 in the morning with side effects of levi rgy. 3. Type 2 diabetes, well controlled. PLAN: Change her clonidine to 0.2 at bedtime at night. Continue Accu-Cheks and monitoring of diabe felipe with good control. Continue oral Cipro, Flagyl, and IV vancomycin for cellulitis until 07/27/20 17.
--- NOTE | 2017-07-14 08:20 | PRG ---
DATE OF SERVICE: 07/14/2017 [address] of Dr[address] Adriana Villalba. SUBJECTIVE: The patient feels well, lying in bed after having clonidine dose decreased last night, slept well with no nausea, vomiting, headache or dizziness. OBJECTIVE: Last night blood pressure was 157/65, temperature 96.7, pulse 67, respirations 18, O2 sa ts 97%. Lungs are clear. Cardiac examination shows a regular rhythm. No gallops or murmurs. Skin and extremities show lower extremities wrapped with bandages with no erythema or tenderness. ASSESSMENT: 1. Resolving cellulitis and erythema on oral Cipro and Flagyl and IV vancomycin until 07/27/2017. 2. Hypertension, well controlled on decreased dose of clonidine as patient complained of significan t lethargy on 0.3 and will monitor on 0.2 at night. 3. Type 2 diabetes, well controlled. 4. End-stage renal disease on hemodialysis 3 times weekly with dialysis today and will monitor bloo d pressure. PLAN: Continue on clonidine 0.2 at night and monitor blood pressure. Continue Accu-Cheks, control the diabetes. Continue oral Cipro and Flagyl, and IV vancomycin until 07/27/2017 for lymphedema.
[2017-07-14] MEDS: Insulin NPH/Reg Insulin Hm 300 UNITS/3 ML VIAL SC SCH ×2 (08:21→17:19)
[2017-07-14] MEDS: metroNIDAZOLE 500 MG TAB PO SCH ×3 (08:22→21:19)
[2017-07-14] MEDS: Carvedilol 25 MG TAB PO SCH ×2 (08:23→21:16)
[2017-07-14] MEDS: Cipro 250 MG TAB PO SCH ×2 (08:23→21:17)
[2017-07-14] MEDS: Famotidine 20 MG TAB PO SCH (08:23)
[2017-07-14] MEDS: Clopidogrel Bisulfate 75 MG TAB PO SCH (08:23)
[2017-07-14] MEDS: Heparin 5,000 UNITS/ML VIAL SC SCH ×2 (08:24→21:18)
[2017-07-14] MEDS: cloNIDine HCl 0.1 MG TAB PO SCH (09:00)
[2017-07-14] MEDS: traMADol HCl 50 MG TAB PO PRN (18:46)
[2017-07-14] MEDS: Acetaminophen 500 MG TAB PO PRN (18:46)
[2017-07-14] MEDS: Gabapentin 300 MG CAP PO SCH (21:15)
[2017-07-14] MEDS: Atorvastatin Calcium 20 MG TAB PO SCH (21:17)
[2017-07-15] MEDS: traMADol HCl 50 MG TAB PO PRN ×2 (01:46→17:55)
--- NOTE | 2017-07-15 06:54 | PRG ---
DATE OF SERVICE: 07/15/2017 SUBJECTIVE: The patient feels well, through the night rested well with no headaches, dizziness, jayden rtness breath and is preparing for Wound Care evaluation today. Denies any lethargy and we will see how he feels during the day on decreased dose of clonidine. OBJECTIVE: Accu-Cheks are stable at 120-130. Vital signs show blood pressure last night was 123/58 , O2 sat 98%, respirations 20, pulse 77, afebrile. Lungs are clear. Cardiac examination shows regu lar rhythm. Legs are wrapped in bandages. ASSESSMENT: 1. Resolving cellulitis, lymphedema on oral clindamycin and Flagyl, and IV vancomycin with wound ca re appointment today and with continued antibiotics until 07/27/2017. 2. End-stage renal disease, stable on hemodialysis. 3. Hypertension, controlled on a lower dose of clonidine at night and will monitor for lethargy dur ing the day. PLAN: Continue clonidine 0.2 at night. Continue other blood pressure medicines, continue oral and IV antibiotics with IV antibiotics at dialysis. Continue Wound Care consult today.
[2017-07-15] MEDS: Insulin NPH/Reg Insulin Hm 300 UNITS/3 ML VIAL SC SCH ×2 (07:52→17:17)
[2017-07-15] MEDS: Heparin 5,000 UNITS/ML VIAL SC SCH ×2 (07:53→21:08)
[2017-07-15] MEDS: metroNIDAZOLE 500 MG TAB PO SCH ×3 (07:54→21:07)
[2017-07-15] MEDS: Cipro 250 MG TAB PO SCH ×2 (07:54→21:08)
[2017-07-15] MEDS: Clopidogrel Bisulfate 75 MG TAB PO SCH (07:54)
[2017-07-15] MEDS: Famotidine 20 MG TAB PO SCH (07:54)
[2017-07-15] MEDS: Carvedilol 25 MG TAB PO SCH ×2 (07:58→21:07)
[2017-07-15] MEDS: cloNIDine HCl 0.1 MG TAB PO SCH (07:58)
[2017-07-15] MEDS: Acetaminophen 500 MG TAB PO PRN (17:55)
[2017-07-15] MEDS: Atorvastatin Calcium 20 MG TAB PO SCH (21:07)
[2017-07-15] MEDS: Gabapentin 300 MG CAP PO SCH (21:08)
[2017-07-16] MEDS: metroNIDAZOLE 500 MG TAB PO SCH ×3 (08:21→22:06)
[2017-07-16] MEDS: Insulin NPH/Reg Insulin Hm 300 UNITS/3 ML VIAL SC SCH ×2 (08:21→17:22)
[2017-07-16] MEDS: Clopidogrel Bisulfate 75 MG TAB PO SCH (08:21)
[2017-07-16] MEDS: Famotidine 20 MG TAB PO SCH (08:21)
[2017-07-16] MEDS: Cipro 250 MG TAB PO SCH ×2 (08:21→22:00)
[2017-07-16] MEDS: Carvedilol 25 MG TAB PO SCH ×2 (08:23→22:00)
[2017-07-16] MEDS: cloNIDine HCl 0.1 MG TAB PO SCH (08:23)
[2017-07-16] MEDS: Heparin 5,000 UNITS/ML VIAL SC SCH ×2 (08:24→22:01)
--- NOTE | 2017-07-16 11:59 | PRG ---
DATE OF SERVICE: 07/16/2017 SUBJECTIVE: The patient feels well at dialysis. No complaints. Good blood pressure control. No s welling of his ankles. OBJECTIVE: Blood pressure 157/65, pulse 77, respirations 20, O2 sats 97%. Lungs are clear. Cardia c examination shows regular rhythm. Accu-Cheks 129 to 162. Skin and extremities show resolving edwin ma and cellulitis, most recent sed rate 91. ASSESSMENT: 1. Resolving cellulitis on oral clindamycin and Flagyl, and IV vancomycin 2. End-stage renal disease, stable on hemodialysis. 3. Hypertension, controlled on low dose clonidine with minimal lethargy. PLAN: 1. Continue clonidine 0.2 at night, as well as other blood pressure medicines, is well controlled. 2. Continue oral clindamycin and Flagyl, and IV vancomycin until 07/27/2017. 3. Repeat CBC and comp metabolic profile in the a.m.
[2017-07-16] MEDS: Gabapentin 300 MG CAP PO SCH (22:00)
[2017-07-16] MEDS: Atorvastatin Calcium 20 MG TAB PO SCH (22:01)
[2017-07-16] MEDS: traMADol HCl 50 MG TAB PO PRN (22:11)
[2017-07-16] MEDS: Acetaminophen 500 MG TAB PO PRN (22:11)
[2017-07-17 05:16] LABS: Band 6 % (5-11); Eosinophils 2 % (0-10); Hemoglobin 11.5 g/dL (14.0-18.0); Lymphocytes 27 % (21-51); MDiff Complete? YES; Mean Corpuscular HGB CONC 30.9 g/dL (32.0-36.0); Mean Corpuscular Hemoglobin 26.5 pg (27.0-31.0); Mean Corpuscular Volume 85.5 fl (80.0-94.0); Mean Platelet Volume 6.8 fL (7.4-10.4); Monocytes 10 % (0-10); Neutrophil 55 % (42-75); PLT Morphology Comment Appears Adequate; Platelet Count 133 thou/uL (130-400); RBC Distribution Width 17.3 % (11.5-14.5); RBC Morphology Normal; Red Blood Cell (RBC) Count 4.35 mill/uL (4.70-6.10)
[2017-07-17 05:29] LABS: ALT (SGPT) 6 U/L (8-55); AST (SGOT) 11 U/L (5-34); Alkaline Phosphatase 82 U/L (40-150); Anion Gap 13 mmol/L (10-20); BUN (Urea Nitrogen) 32 mg/dL (8.4-25.7); Bilirubin, Total 0.3 mg/dL (0.2-1.2); Calc. Creatinine Clearance 36 mL/min (70-130); Calcium 8.7 mg/dL (7.8-10.44); Carbon Dioxide 33 mmol/L (23-31); Chloride 100 mmol/L (98-107); Estimated GFR-MDRD 16; Glucose 105 mg/dL (80-115); Potassium 3.7 mmol/L (3.5-5.1); Sodium 142 mmol/L (136-145)
[2017-07-17] MEDS: Insulin NPH/Reg Insulin Hm 300 UNITS/3 ML VIAL SC SCH ×2 (08:18→17:12)
[2017-07-17] MEDS: cloNIDine HCl 0.1 MG TAB PO SCH (08:43)
[2017-07-17] MEDS: Famotidine 20 MG TAB PO SCH (08:44)
[2017-07-17] MEDS: metroNIDAZOLE 500 MG TAB PO SCH ×3 (08:44→21:18)
[2017-07-17] MEDS: Carvedilol 25 MG TAB PO SCH ×2 (08:44→21:19)
[2017-07-17] MEDS: Clopidogrel Bisulfate 75 MG TAB PO SCH (08:44)
[2017-07-17] MEDS: Heparin 5,000 UNITS/ML VIAL SC SCH ×2 (08:45→21:17)
[2017-07-17] MEDS: Cipro 250 MG TAB PO SCH ×2 (08:45→21:18)
--- NOTE | 2017-07-17 16:08 | PRG ---
DATE OF SERVICE: 07/17/2017 SUBJECTIVE: Mr. Wells is doing well. Denies any complaints, resting comfortably. He apparently has been cleared for some more weight bearing and so he is able to move around with his wheelchair. He is tolerating his medications and his antibiotics. OBJECTIVE: VITAL SIGNS: He is afebrile, heart rate 78, respirations 18, oxygen saturation 93%, blood pressure 134/60. CARDIOVASCULAR: S1, S2 plus. RESPIRATORY: Normal vesicular breath sounds. ABDOMEN: Soft, obese, nontender, bowel sounds heard in all quadrants. EXTREMITIES: Chronic venous stasis and peripheral neuropathy. LABORATORY VALUES: White count 6, H and H is 11.5 and 37.2. Sodium 142, potassium 3.7, BUN and cre atinine is 32 and 4.60. Blood sugars are 121, 193 and 138. IMPRESSION: 1. End-stage renal disease on hemodialysis. 2. Hypertension, well controlled. 3. Peripheral neuropathy. 4. Diabetic foot with osteomyelitis on IV antibiotics. 5. Peripheral vascular disease. 6. Obesity. PLAN: 1. Continue current medications. 2. Nutritional support. 3. Deep venous thrombosis prophylaxis. 4. Decubitus precautions. 5. Hemodialysis. 6. Routine laboratory values. 7. Discussed with the patient in detail and all questions answered.
[2017-07-17] MEDS: Acetaminophen 500 MG TAB PO PRN (21:14)
[2017-07-17] MEDS: traMADol HCl 50 MG TAB PO PRN (21:14)
[2017-07-17] MEDS: Gabapentin 300 MG CAP PO SCH (21:18)
[2017-07-17] MEDS: Atorvastatin Calcium 20 MG TAB PO SCH (21:18)
[2017-07-18] MEDS: Insulin NPH/Reg Insulin Hm 300 UNITS/3 ML VIAL SC SCH ×2 (08:22→16:59)
[2017-07-18] MEDS: Heparin 5,000 UNITS/ML VIAL SC SCH ×2 (08:23→20:27)
[2017-07-18] MEDS: metroNIDAZOLE 500 MG TAB PO SCH ×3 (08:26→20:26)
[2017-07-18] MEDS: cloNIDine HCl 0.1 MG TAB PO SCH (08:28)
[2017-07-18] MEDS: Clopidogrel Bisulfate 75 MG TAB PO SCH (08:28)
[2017-07-18] MEDS: Famotidine 20 MG TAB PO SCH (08:29)
[2017-07-18] MEDS: Carvedilol 25 MG TAB PO SCH ×2 (08:29→20:27)
[2017-07-18] MEDS: Cipro 250 MG TAB PO SCH ×2 (08:30→20:28)
--- NOTE | 2017-07-18 15:08 | PRG ---
DATE OF SERVICE: 07/18/2017 SUBJECTIVE: Mr. Wells is doing the same. Denies any complaints, resting comfortably, tolerating his medications and his therapy. OBJECTIVE: VITAL SIGNS: He is afebrile, heart rate is 72, respiration is 18, oxygen saturation is 96% and bloo d pressure is 150/67. CARDIOVASCULAR SYSTEM: S1 and S2 plus. RESPIRATORY SYSTEM: Normal vesicular breath sounds. ABDOMEN: Soft, obese, nontender. Bowel sounds heard in all quadrants. EXTREMITIES: Chronic venous insufficiency with possible lymphedema. LABORATORY VALUES: His white count of 6.0. H\T\H is 11.5 and 37.2. Last sed rate was in 07/06 it was 91. His sodium 142, potassium 3.7, BUN and creatinine is 32 and 4.6. Blood sugars are 138, 141 , 144, 91 and 48. IMPRESSION: 1. Diabetic foot on IV antibiotics. 2. End-stage renal disease on hemodialysis. 3. Peripheral neuropathy. 4. Morbid obesity. 5. Peripheral vascular disease. 6. Diabetes mellitus type 2. PLAN: 1. Continue current medications. 2. Nutritional support. 3. 1800 calorie Heart healthy ADA diet. 4. Accu-Cheks with sliding scale coverage 5. Hemodialysis. 6. Physical therapy. 7. DVT and stress ulcer prophylaxis. 8. Routine laboratory values.
[2017-07-18] MEDS: Gabapentin 300 MG CAP PO SCH (20:27)
[2017-07-18] MEDS: Atorvastatin Calcium 20 MG TAB PO SCH (20:27)
[2017-07-19] MEDS: Insulin NPH/Reg Insulin Hm 300 UNITS/3 ML VIAL SC SCH ×2 (08:40→17:09)
[2017-07-19] MEDS: Heparin 5,000 UNITS/ML VIAL SC SCH ×2 (08:40→20:44)
[2017-07-19] MEDS: metroNIDAZOLE 500 MG TAB PO SCH (08:40)
[2017-07-19] MEDS: Cipro 250 MG TAB PO SCH (08:41)
[2017-07-19] MEDS: Carvedilol 25 MG TAB PO SCH ×2 (08:41→20:44)
[2017-07-19] MEDS: Clopidogrel Bisulfate 75 MG TAB PO SCH (08:41)
[2017-07-19] MEDS: Famotidine 20 MG TAB PO SCH (08:42)
[2017-07-19] MEDS: cloNIDine HCl 0.1 MG TAB PO SCH (08:42)
--- NOTE | 2017-07-19 15:51 | PRG ---
DATE OF SERVICE: 07/19/2017 SUBJECTIVE: Mr. Wells is doing well. Denies any complaints, resting comfortably. Discussed with nu yosiing and no concerns. OBJECTIVE: VITAL SIGNS: He is afebrile, heart rate 69, respirations 20, blood pressure is 150/67. CARDIOVASCULAR SYSTEM: S1, S2 plus. RESPIRATORY SYSTEM: Normal vesicular breath sounds. ABDOMEN: Soft, obese, nontender, bowel sounds heard in all quadrants. EXTREMITIES: Chronic venous stasis with possible chronic lymphedema. CENTRAL NERVOUS SYSTEM: Peripheral neuropathy. IMPRESSION: 1. Diabetic foot. 2. End-stage renal disease on hemodialysis. 3. Peripheral neuropathy. 4. Morbid obesity. 5. Peripheral vascular disease. 6. Diabetes mellitus type 2. PLAN: 1. Continue current medications. 2. Nutritional support. 3. DVT prophylaxis. 4. Decubitus precautions. 5. Hemodialysis. 6. Accu-Cheks. 7. Physical therapy. 8. No family at the bedside. 9. Dr. Adriana Villalba back tonight.
[2017-07-19] MEDS: Atorvastatin Calcium 20 MG TAB PO SCH (20:44)
[2017-07-19] MEDS: Gabapentin 300 MG CAP PO SCH (20:44)
[2017-07-19] MEDS: traMADol HCl 50 MG TAB PO PRN (20:45)
[2017-07-19] MEDS: Acetaminophen 500 MG TAB PO PRN (20:45)
[2017-07-20] MEDS: Heparin 5,000 UNITS/ML VIAL SC SCH ×2 (07:35→21:11)
[2017-07-20] MEDS: Insulin NPH/Reg Insulin Hm 300 UNITS/3 ML VIAL SC SCH ×2 (07:36→17:05)
[2017-07-20] MEDS: Clopidogrel Bisulfate 75 MG TAB PO SCH (07:37)
[2017-07-20] MEDS: Carvedilol 25 MG TAB PO SCH ×2 (07:39→21:13)
[2017-07-20] MEDS: cloNIDine HCl 0.1 MG TAB PO SCH ×2 (07:39→21:14)
[2017-07-20] MEDS: Famotidine 20 MG TAB PO SCH (07:40)
[2017-07-20] MEDS: HumaLOG 300 UNITS/3 ML VIAL SC PRN (11:09)
[2017-07-20] MEDS: traMADol HCl 50 MG TAB PO PRN (21:12)
[2017-07-20] MEDS: Acetaminophen 500 MG TAB PO PRN (21:13)
[2017-07-20] MEDS: Atorvastatin Calcium 20 MG TAB PO SCH (21:13)
[2017-07-20] MEDS: Gabapentin 300 MG CAP PO SCH (21:16)
--- NOTE | 2017-07-20 22:10 | PRG ---
HISTORY OF PRESENT ILLNESS: Mr. Wells is a 61-year-old, very pleasant, obese black [facility] with bilateral lower extremity cellulitis. He also was not ed to have significantly severe lymphedema. He was diuresed, started on vancomycin, oral Cipro and Flagyl and transferred to [facility] for continued antibiotics and continued wound c are. He also was noted to have end-stage renal disease, on hemodialysis Wednesday, Wednesday, Wednesday. SUBJECTIVE: The patient states he is doing very well. He is supposed to get his dialysis fistula o n 07/29/2017. He is supposed to go to dialysis tomorrow. He has no complaints and states he is doi ng well except he has some right thigh pain that he thinks is a muscle problem. We will give him a dose of Flexeril tonight to see if it helps. OBJECTIVE: VITAL SIGNS: Today reveal blood pressure 129/60, pulse 73, respirations 18-20, O2 sat 9 7 100%, temperature 97.9. Weight 333 pounds. LABORATORY DATA: Last done on the , but he has not had a CBC and sed rate. We will repeat his l abs tomorrow with a CBC and sed rate, and send those on to Dr. Vásquez. PHYSICAL EXAMINATION: GENERAL: This is a well-developed, well-nourished, morbidly obese white male, in no apparent distre ss at this time. HEENT: Reveals normocephalic, nontraumatic cranium. Pupils are equally round and reactive. Extrao cular movements intact. Nose and throat are slightly dry. NECK: Supple without masses, nodes or bruits. CHEST: Clear to auscultation. No rales, rhonchi or wheezes are heard. CARDIOVASCULAR: Reveals a regular rate and rhythm without murmurs, gallops or rubs. ABDOMEN: Morbidly obese, soft, nontender, without organomegaly. GENITOURINARY: Deferred. Chronic venous stasis noted in both extremities. Peripheral neuropathy n oted. IMPRESSION: 1. End-stage renal disease, on hemodialysis Wednesday, Wednesday, Wednesday. 2. Diabetic foot, much improved. 3. Peripheral vascular disease. 4. Peripheral neuropathy. 5. Diabetes type 2. 6. Morbid obesity. 7. Osteomyelitis. 8. Hypertension. 9. Status post percutaneous transluminal coronary angioplasty and stent placement. 10. Sick sinus syndrome, status post automatic implantable cardioverter-defibrillator. PLAN: 1. Dialysis Wednesday, Wednesday, and Wednesday. 2. Continue Accu-Cheks before meals and at bedtime. 3. Labs to be drawn tomorrow to be sent to Dr. Vásquez. 4. Wound care next week. 5. Fistula placement by Dr. Guajardo on 07/29/2017. 6. Continue deep venous thrombosis prophylaxis. 7. Continue stress ulcer prophylaxis. 8. Decubitus precautions to be continued. 9. Physical therapy and occupational therapy.
[2017-07-20 22:12] VITALS: BMI 50.5
[2017-07-21 05:14] LABS: Band 2 % (5-11); Eosinophils 2 % (0-10); Hemoglobin 10.9 g/dL (14.0-18.0); Lymphocytes 37 % (21-51); MDiff Complete? YES; Mean Corpuscular HGB CONC 30.8 g/dL (32.0-36.0); Mean Corpuscular Hemoglobin 26.1 pg (27.0-31.0); Mean Corpuscular Volume 84.8 fl (80.0-94.0); Mean Platelet Volume 6.9 fL (7.4-10.4); Monocytes 12 % (0-10); Neutrophil 46 % (42-75); Platelet Count 144 thou/uL (130-400); RBC Distribution Width 16.6 % (11.5-14.5); Red Blood Cell (RBC) Count 4.16 mill/uL (4.70-6.10); White Blood Cell (WBC) Count 6.1 thou/uL (4.8-10.8)
[2017-07-21 05:30] LABS: ALT (SGPT) 7 U/L (8-55); AST (SGOT) 10 U/L (5-34); Albumin 2.9 g/dL (3.4-4.8); Alkaline Phosphatase 74 U/L (40-150); Anion Gap 15 mmol/L (10-20); BUN (Urea Nitrogen) 56 mg/dL (8.4-25.7); Bilirubin, Total 0.3 mg/dL (0.2-1.2); CRP (Inflammatory) 1.42 mg/dL (= or < 0.5); Calc. Creatinine Clearance 26 mL/min (70-130); Calcium 8.4 mg/dL (7.8-10.44); Carbon Dioxide 30 mmol/L (23-31); Chloride 99 mmol/L (98-107); Estimated GFR-MDRD 11; Globulin 3.6 g/dL (2.4-3.5); Glucose 121 mg/dL (80-115); Potassium 4.3 mmol/L (3.5-5.1); Protein, Total 6.5 g/dL (5.8-8.1); Sodium 140 mmol/L (136-145)
[2017-07-21] MEDS: Insulin NPH/Reg Insulin Hm 300 UNITS/3 ML VIAL SC SCH ×2 (08:10→18:27)
[2017-07-21] MEDS: Heparin 5,000 UNITS/ML VIAL SC SCH ×2 (08:27→20:21)
[2017-07-21] MEDS: Famotidine 20 MG TAB PO SCH (08:28)
[2017-07-21] MEDS: Carvedilol 25 MG TAB PO SCH ×2 (08:28→20:20)
[2017-07-21] MEDS: Clopidogrel Bisulfate 75 MG TAB PO SCH (08:28)
--- NOTE | 2017-07-21 14:37 | PRG ---
DATE OF SERVICE: 07/21/2017 HISTORY OF PRESENT ILLNESS: Mr. Wells is a 61-year-old very pleasant, obese black male initially adm itted to [facility]. He had bilateral cellulitis and severe lymphedema. He has diuresed and started on vancomycin, oral Cipro, and Flagyl. He was transferred to [facility] for continued antibiotics and continued wound care. The patient is slated to have surgery the day he finishes antibiotics which is 07/27/2014. He is go ing to have officially done in his forearm. Postoperatively, he will come here for continued wound care in another couple days of physical therapy and occupational therapy. I did discuss with physical therapy today; however, he did walk yesterday approximately 99 feet bare ly weightbearing. We are going to try to get him a boot so that we can give him a little bit more f reedom to get up and move around. Postoperatively after his fistula surgery, he is going to have couple more days of therapy to get us ed to not using that arm and continue doing some walking. PHYSICAL EXAMINATION: VITAL SIGNS: Today reveal blood pressure 136/63, pulse 71-81, respirations 17-20, O2 sat 98%-100%, T-max is 98.1. LABORATORY DATA: Laboratories today were done and already faxed to Dr. Vásquez. His white count is 6 ,100 with hemoglobin 10.9, hematocrit 35.3, and platelet count 144,000. His sedimentation rate is 7 4, which is down from 91 previously. His chemistries reveal sodium 140, potassium 4.3, chloride 99, carbon dioxide 30. His BUN is 56, hi s creatinine is 6.32 and he is on dialysis. His sugar this morning was 121 fasting. AST was 10 and ALT is 7. C-reactive protein is 1.42, which is up from 1.26 done on the which is down from 2. 19 done on 06/18/2017. On physical examination, the patient is presently at dialysis. He is not here physically. I did re port to the nurse, she states he has no complaints. He is actually doing very well. He should be b ack within the next 4 hours. IMPRESSION: 1. End-stage renal disease, on hemodialysis Wednesday, Wednesday, Wednesday, presently at dialysis. 2. Diabetic foot continues to slowly improve. 3. Peripheral vascular disease, improved. 4. Peripheral neuropathy, stable. 5. Diabetes type 2, unchanged. 6. Morbid obesity, unchanged. 7. Generalized weakness. 8. Osteomyelitis. 9. Hypertension. 10. Status post percutaneous transluminal coronary angioplasty and stent placement. 11. Sick sinus syndrome, status post automatic implantable cardioverter defibrillator. 12. Generalized weakness. PLAN: 1. Continue with physical therapy. 2. Try to get a more supportive boot for him to walk around better. 3. Fistula surgery is scheduled for . 4. Continue physical therapy afterwards. 5. Continue deep venous thrombosis prophylaxis. 6. Continue stress ulcer prophylaxis. 7. Continue decubitus precautions. 8. Continue physical therapy and occupational therapy.
[2017-07-21] MEDS: Gabapentin 300 MG CAP PO SCH (20:20)
[2017-07-21] MEDS: Atorvastatin Calcium 20 MG TAB PO SCH (20:20)
[2017-07-21] MEDS: cloNIDine HCl 0.1 MG TAB PO SCH (20:21)
[2017-07-22] MEDS: HumaLOG 300 UNITS/3 ML VIAL SC PRN ×2 (06:08→16:44)
[2017-07-22] MEDS: Heparin 5,000 UNITS/ML VIAL SC SCH ×2 (08:36→21:00)
[2017-07-22] MEDS: Insulin NPH/Reg Insulin Hm 300 UNITS/3 ML VIAL SC SCH ×2 (08:36→16:44)
[2017-07-22] MEDS: Clopidogrel Bisulfate 75 MG TAB PO SCH (08:37)
[2017-07-22] MEDS: Carvedilol 25 MG TAB PO SCH ×2 (08:37→20:59)
[2017-07-22] MEDS: Famotidine 20 MG TAB PO SCH (08:37)
--- NOTE | 2017-07-22 17:20 | PRG ---
DATE OF SERVICE: 07/22/2017 HISTORY OF PRESENT ILLNESS: Mr. Wells is a very pleasant 61-year-old black male that admitted to [facility] for bilateral cellulitis and lymphedema. He was diuresed, started on va ncomycin, Cipro and oral Flagyl, which he stops on 07/27. He was transferred to [facility] or continued antibiotics, continued wound care, and continued hemodialysis. SUBJECTIVE: The patient states he is doing well. We did talk with physical therapy yesterday and a greed that he would still qualify for a wound care if he gets his fistula, because he needs to work on his strength, stamina and balance. His fistula surgery is scheduled for and on the he is supposed to have wound care by Dr. Back. PHYSICAL EXAMINATION: GENERAL: This is a well-developed, well-nourished, morbidly obese white male, in no apparent distre ss at this time. VITAL SIGNS: Today reveal blood pressure 154/70, pulse 70 to 80, respirations 18, O2 sat 97% on dana m air, and T-max 97.8. Weight is still 333 pounds. HEENT: Reveals normocephalic, nontraumatic cranium. Pupils are equally round and reactive. Extrao cular movements are intact. Nose and throat are slightly dry. NECK: Supple, without masses, nodes or bruits. LUNGS: Chest is clear to auscultation, but distant breath sounds are noted. HEART: Reveals a regular rate and rhythm without murmurs, gallops or rubs. ABDOMEN: Morbidly obese, soft, nontender, without organomegaly. Normal bowel sounds are noted. No rebound or guarding is noted. : Deferred. EXTREMITIES: Reveal chronic venous stasis both extremities with peripheral neuropathy noted. The p atient does have significant lymphedema. IMPRESSION: 1. End-stage renal disease, on hemodialysis Wednesday, Wednesday, Wednesday. 2. Lymphedema, cellulitis, much improved. 3. Diabetic foot, much improved. 4. Peripheral vascular disease. 5. Peripheral neuropathy. 6. Diabetes type 2. 7. Morbid obesity. 8. Generalized weakness. 9. Osteomyelitis. 10. Hypertension. 11. Status post percutaneous transluminal coronary angioplasty and stent placement. 12. Sick sinus syndrome, status post automatic implantable cardioverter-defibrillator. 13. Generalized weakness. PLAN: 1. Continue dialysis Wednesday, Wednesday, and Wednesday. 2. Continue Accu-Cheks a.c. and at bedtime. 3. Labs were sent to Dr. Vásquez. 4. Wound care next week on Wednesday. 5. Fistula placement next week on . 6. Continue deep venous thrombosis prophylaxis. 7. Stress ulcer prophylaxis. 8. Decubitus precautions. 9. Physical therapy and occupational therapy.
[2017-07-22] MEDS: Gabapentin 300 MG CAP PO SCH (20:59)
[2017-07-22] MEDS: cloNIDine HCl 0.1 MG TAB PO SCH (20:59)
[2017-07-22] MEDS: Atorvastatin Calcium 20 MG TAB PO SCH (20:59)
[2017-07-22] MEDS: Acetaminophen 500 MG TAB PO PRN (21:00)
[2017-07-22] MEDS: traMADol HCl 50 MG TAB PO PRN (21:00)
[2017-07-23] MEDS: Famotidine 20 MG TAB PO SCH (09:08)
[2017-07-23] MEDS: Clopidogrel Bisulfate 75 MG TAB PO SCH (09:09)
[2017-07-23] MEDS: Heparin 5,000 UNITS/ML VIAL SC SCH ×2 (09:09→21:48)
[2017-07-23] MEDS: Carvedilol 25 MG TAB PO SCH ×2 (09:11→21:48)
[2017-07-23] MEDS: Insulin NPH/Reg Insulin Hm 300 UNITS/3 ML VIAL SC SCH ×2 (09:11→18:03)
[2017-07-23] MEDS: Gabapentin 300 MG CAP PO SCH (21:46)
[2017-07-23] MEDS: traMADol HCl 50 MG TAB PO PRN (21:47)
[2017-07-23] MEDS: Acetaminophen 500 MG TAB PO PRN (21:47)
[2017-07-23] MEDS: cloNIDine HCl 0.1 MG TAB PO SCH (21:47)
[2017-07-23] MEDS: Atorvastatin Calcium 20 MG TAB PO SCH (21:48)
[2017-07-24] MEDS: Heparin 5,000 UNITS/ML VIAL SC SCH ×2 (09:32→21:48)
[2017-07-24] MEDS: HumaLOG 300 UNITS/3 ML VIAL SC PRN ×2 (09:32→12:10)
[2017-07-24] MEDS: Insulin NPH/Reg Insulin Hm 300 UNITS/3 ML VIAL SC SCH ×2 (09:33→17:21)
[2017-07-24] MEDS: Carvedilol 25 MG TAB PO SCH ×2 (09:34→21:48)
[2017-07-24] MEDS: Famotidine 20 MG TAB PO SCH (09:35)
[2017-07-24] MEDS: Clopidogrel Bisulfate 75 MG TAB PO SCH (09:35)
[2017-07-24] MEDS: cloNIDine HCl 0.1 MG TAB PO SCH (21:48)
[2017-07-24] MEDS: Gabapentin 300 MG CAP PO SCH (21:49)
[2017-07-24] MEDS: Atorvastatin Calcium 20 MG TAB PO SCH (21:49)
[2017-07-24] MEDS: traMADol HCl 50 MG TAB PO PRN (21:49)
[2017-07-24] MEDS: Acetaminophen 500 MG TAB PO PRN (21:50)
--- NOTE | 2017-07-25 06:41 | PRG ---
DATE OF SERVICE: 07/24/2017 HISTORY OF PRESENT ILLNESS: Mr. Wells is a very pleasant 61-year-old black male transferred from [facility] after having lymphedema and bilateral cellulitis. He was started on van comycin, Cipro and Flagyl. These will stop actually on the . The patient was transferred here for continued IV antibiotics, end-stage renal disease, hemodialysis 3 days a week and wound care. SUBJECTIVE: The patient states he had a great day today. He has no complaints. He loves the food here. He loves the people. His therapy over the last week he has been very good. Next week he is supposed to have dialysis Wednesday, Wednesday and Wednesday but fistulotomy done for his dialysis most li dayne on Wednesday and wound care on Wednesday or the other way around. The patient has no complaints at this time. He states he is doing well. PHYSICAL EXAMINATION: VITAL SIGNS: Reveal blood pressure is 155/70, pulse 70 to 72, respirations 17-20, O2 sat 95%, T-max is 97.3. GENERAL: This is a well-developed, well-nourished, very pleasant, morbidly obese black male in no a pparent distress at this time. HEENT: Reveals normocephalic, nontraumatic cranium. Pupils are equally round and reactive. Extrao cular movements intact. Nose and throat are slightly dry. NECK: Supple, without masses, nodes or bruits. CHEST: Clear to auscultation. No rales, rhonchi or wheezes are heard. HEART: Reveals a regular rate and rhythm without murmurs, gallops or rubs. ABDOMEN: Morbidly obese, soft, nontender, without organomegaly. Normal bowel sounds are noted. No rebound or guarding is noted. GENITOURINARY: Deferred. EXTREMITIES: Reveal chronic venous stasis. Both extremities also have peripheral neuropathy. The patient actually is slowly doing better and has less lymphedema since he had his wraps. IMPRESSION: 1. Lymphedema cellulitis, much improved. 2. End-stage renal disease, on hemodialysis Wednesday, Wednesday, Wednesday. 3. Diabetic foot, much improved. 4. Peripheral vascular disease. 5. Peripheral neuropathy. 6. Diabetes type 2. 7. Morbid obesity. 8. Osteomyelitis. 9. Hypertension. 10. Status post percutaneous transluminal coronary angioplasty and stent placement. 11. Sick sinus syndrome, status post automatic implantable cardioverter defibrillator. 12. Generalized weakness. PLAN: 1. Continue to follow Accu-Cheks a.c. and at bedtime. 2. Continue dialysis Wednesday, Wednesday, and Wednesday. 3. Continue wound care. 4. Fistula replacement next week. 5. Continue deep venous thrombosis prophylaxis. 6. Continue stress ulcer prophylaxis. 7. Decubitus precautions. 8. Physical therapy and occupational therapy.
--- NOTE | 2017-07-25 08:39 | PRG ---
DATE OF SERVICE: 07/25/2017 HISTORY OF PRESENT ILLNESS: Mr. Wells is a very pleasant 61-year-old black male transferred from [facility] with bilateral lower extremity cellulitis and lymphedema. He was diures ed, started on vancomycin, Cipro, Flagyl. He was transferred here for physical therapy, occupationa l therapy, wound care and continue dialysis. He is also has to continue his IV vancomycin after eac h dialysis and his oral Cipro and Flagyl until the . SUBJECTIVE: The patient states he is doing well today. He has no complaints. He is not constipate d. He feels well and he knows that it is Wednesday. OBJECTIVE: VITAL SIGNS: Reveal blood pressure 142/65, pulse 72-75, respirations 18-20, O2 sat 95%. Temperatur e is 96.8. LABORATORY DATA: Revealed blood sugar this morning is 93, last night before bedtime 114, before sup per 140, before lunch 203 and before breakfast yesterday morning was 115 too. PHYSICAL EXAMINATION: GENERAL: This is a well-developed, well-nourished, very pleasant black male, in no apparent distres s at this time. HEENT: Reveals normocephalic, nontraumatic cranium. Pupils equal, round, and reactive. Extraocula r movements intact. Nose and throat are moist. NECK: Supple, without masses, nodes or bruits. LUNGS: Chest is clear to auscultation. No rales, no rhonchi, no wheezes are heard. No cough is he akilah. CARDIOVASCULAR: Heart reveals a regular rate and rhythm without murmurs, gallops or rubs. ABDOMEN: Morbidly obese, soft, nontender, without organomegaly. Normal bowel sounds are distant. No rebound or guarding is noted. GENITOURINARY: Deferred. EXTREMITIES: Reveal lymphedema wraps continue to be on actually is doing very well. The patient st ates his wounds have been healing and he is to see the wound care this next week. LABORATORY DATA: No labs were done. ASSESSMENT: 1. Osteomyelitis secondary to diabetic foot, presently on vancomycin after dialysis, Cipro 250 b.i. d. and Flagyl 250 t.i.d. until 07/27/2017. 2. Diabetic neuropathy. 3. Hypertension. 4. Peripheral vascular disease. 5. Sick sinus syndrome, status post AICD. 6. End-stage renal disease on dialysis 3 times a week on Wednesday, Wednesday, and Wednesday. 7. Morbid obesity. 8. Generalized weakness. PLAN: 1. Dialysis again tomorrow. 2. Continue Accu-Cheks a.c. and at bedtime. 3. Labs most likely on Wednesday. 4. Thos will be sent to Dr. Vásquez. 5. Wound care with Dr. Back, next week. 6. Fistula placement by Dr. Guajardo, next week. 7. Cardiology appointment with the assembler golf wood head, sometimes in the following weeks.
[2017-07-25] MEDS: Heparin 5,000 UNITS/ML VIAL SC SCH ×2 (10:41→21:15)
[2017-07-25] MEDS: Clopidogrel Bisulfate 75 MG TAB PO SCH (10:42)
[2017-07-25] MEDS: Famotidine 20 MG TAB PO SCH (10:42)
[2017-07-25] MEDS: Carvedilol 25 MG TAB PO SCH ×2 (10:42→21:13)
[2017-07-25] MEDS: Insulin NPH/Reg Insulin Hm 300 UNITS/3 ML VIAL SC SCH ×2 (10:45→17:13)
[2017-07-25] MEDS: Gabapentin 300 MG CAP PO SCH (21:13)
[2017-07-25] MEDS: Acetaminophen 500 MG TAB PO PRN (21:13)
[2017-07-25] MEDS: Atorvastatin Calcium 20 MG TAB PO SCH (21:13)
[2017-07-25] MEDS: traMADol HCl 50 MG TAB PO PRN (21:14)
[2017-07-25] MEDS: cloNIDine HCl 0.1 MG TAB PO SCH (21:14)
[2017-07-26] MEDS: Heparin 5,000 UNITS/ML VIAL SC SCH ×2 (08:31→21:00)
[2017-07-26] MEDS: Famotidine 20 MG TAB PO SCH (08:33)
[2017-07-26] MEDS: Clopidogrel Bisulfate 75 MG TAB PO SCH (08:33)
[2017-07-26] MEDS: Carvedilol 25 MG TAB PO SCH ×2 (08:36→21:01)
[2017-07-26] MEDS: Insulin NPH/Reg Insulin Hm 300 UNITS/3 ML VIAL SC SCH ×2 (10:32→17:03)
[2017-07-26] MEDS: Atorvastatin Calcium 20 MG TAB PO SCH (21:00)
[2017-07-26] MEDS: traMADol HCl 50 MG TAB PO PRN (21:00)
[2017-07-26] MEDS: Acetaminophen 500 MG TAB PO PRN (21:02)
[2017-07-26] MEDS: cloNIDine HCl 0.1 MG TAB PO SCH (21:02)
[2017-07-26] MEDS: Gabapentin 300 MG CAP PO SCH (22:41)
--- NOTE | 2017-07-26 23:27 | PRG ---
DATE OF SERVICE: 07/26/2017 HISTORY OF PRESENT ILLNESS: Mr. Wells is a very pleasant 61-year-old morbidly obese black male from [facility]. He had bilateral cellulitis and lymphedema. He is diurese d and placed on vancomycin, Cipro and Flagyl and transferred to [facility] for physi jenn therapy, occupational therapy, wound care, dialysis. Patient finishes dialysis on . SUBJECTIVE: The patient states he is doing well. He did have dialysis today. He states he will go see his wound care tomorrow Dr. Back. After that he has dialysis on Wednesday. On , he has a fistula placement by Dr. Guajardo. He has no complaints today. He states he is blessed. VITAL SIGNS: This morning, reveals blood pressure 150/70, pulse 65-66, respirations 20, O2 sat 95-9 8%. T-max is 96.7. LABORATORY DATA: No labs were done today. PHYSICAL EXAMINATION: GENERAL: Reveals a well-developed, well-nourished, morbidly obese black male, in no apparent distre ss at this time. HEENT: Reveals normocephalic, nontraumatic cranium. Nose and throat are slightly dry. NECK: Supple without masses, nodes or bruits. CHEST: Clear to auscultation. No rales, rhonchi, wheezes or cough is heard. CARDIOVASCULAR: Reveals a regular rate and rhythm without murmurs, gallops or rubs. ABDOMEN: Morbidly obese, soft, nontender, without organomegaly. Normal bowel sounds are noted. No rebound or guarding is noted. GENITOURINARY: Deferred. EXTREMITIES: Reveals lymphedema with wraps continually on, which are much improved. He states his wounds have been healing fairly well. He is interested in seeing what the Wound Care doctor will sa y tomorrow. ASSESSMENT: 1. Osteomyelitis secondary to diabetic foot, presently on vancomycin, Cipro 250 mg b.i.d. and Flagy l 250 mg t.i.d. until 07/27/2017. 2. Diabetic neuropathy. 3. Hypertension. 4. Peripheral vascular disease. 5. Sick sinus syndrome, status post automatic implantable cardioverter-defibrillator. 6. End-stage renal disease on dialysis 3 times a week on Wednesday, Wednesday, and Wednesday. 7. Morbidly obese. 8. Generalized weakness. PLAN: 1. Tomorrow, the patient is going to see Dr. Back, his accounts receivable specialist. 2. Continue Accu-Cheks before meals and at bedtime. 3. Labs tomorrow. 4. Fistula placement with Dr. Guajardo, next . 5. Cardiology appointment sometimes in the distant future.
[2017-07-27 06:10] LABS: #Basophils 0.1 thou/uL (0.0-0.2); #Eosinphils 0.2 thou/uL (0.0-0.7); #Lymphocytes 2.5 thou/uL (1.20-3.40); #Monocytes 0.8 thou/uL (0.11-0.59); #Neutrophils 4.1 thou/uL (1.40-6.50); %Basophils 1.3 % (0.0-1.0); %Eosinophils 2.3 % (0.0-10.0); %Lymphocytes 32.6 % (21.0-51.0); %Monocytes 10.2 % (0.0-10.0); %Neutrophils 53.6 % (42.0-75.0); Hemoglobin 12.1 g/dL (14.0-18.0); Mean Corpuscular HGB CONC 30.3 g/dL (32.0-36.0); Mean Corpuscular Hemoglobin 25.8 pg (27.0-31.0); Mean Platelet Volume 6.9 fL (7.4-10.4); Platelet Count 178 thou/uL (130-400); RBC Distribution Width 16.9 % (11.5-14.5); Red Blood Cell (RBC) Count 4.71 mill/uL (4.70-6.10); White Blood Cell (WBC) Count 7.6 thou/uL (4.8-10.8)
[2017-07-27 06:34] LABS: CRP (Inflammatory) 1.47 mg/dL (= or < 0.5)
[2017-07-27 06:47] LABS: ALT (SGPT) 8 U/L (8-55); AST (SGOT) 12 U/L (5-34); Albumin 3.1 g/dL (3.4-4.8); Alkaline Phosphatase 82 U/L (40-150); Anion Gap 15 mmol/L (10-20); BUN (Urea Nitrogen) 41 mg/dL (8.4-25.7); Bilirubin, Total 0.3 mg/dL (0.2-1.2); Calc. Creatinine Clearance 31 mL/min (70-130); Carbon Dioxide 32 mmol/L (23-31); Chloride 99 mmol/L (98-107); Estimated GFR-MDRD 14; Globulin 4.2 g/dL (2.4-3.5); Glucose 139 mg/dL (80-115); Potassium 4.2 mmol/L (3.5-5.1); Protein, Total 7.3 g/dL (5.8-8.1); Sodium 142 mmol/L (136-145)
[2017-07-27] MEDS: Insulin NPH/Reg Insulin Hm 300 UNITS/3 ML VIAL SC SCH ×2 (08:53→16:55)
[2017-07-27] MEDS: Carvedilol 25 MG TAB PO SCH ×2 (08:54→21:15)
[2017-07-27] MEDS: Famotidine 20 MG TAB PO SCH (08:55)
[2017-07-27] MEDS: Clopidogrel Bisulfate 75 MG TAB PO SCH (08:55)
[2017-07-27] MEDS: Heparin 5,000 UNITS/ML VIAL SC SCH ×2 (08:56→21:16)
--- NOTE | 2017-07-27 10:19 | PRG ---
DATE OF SERVICE: 07/27/2017 HISTORY OF PRESENT ILLNESS: Mr. Wells is a very pleasant 61-year-old morbidly obese black male from [facility] that had a lymphedema and, bilateral lower extremity cellulitis. He was diuresed, placed on vancomycin, Cipro and Flagyl. He was transferred to [facility] for PT, OT, wound care and dialysis 3 times a week. The patient is upset this morning because he was supposed to have an appointment with Wound Care. T hat was supposed to be this morning and an ambulance was supposed to pick him up early this morning. Apparently he was not picked up and so we will try rearrange that. Tomorrow, the patient has dial ysis, on morning the patient has an appointment to get a fistula for his dialysis done with Dr. Guajardo and then Wednesday he will have dialysis again. He will continue with his physical therap y until sometime next week. SUBJECTIVE: The patient states he has been trying to get his wound care done today and get reestabl ished with an ambulance ride up there. VITAL SIGNS: Vital signs this morning reveal blood pressure 158/70, pulse 56-64, respirations 18-20 , O2 sat 95-99%, temperature max 97.6. LABORATORY: Today reveals white count 7600, hemoglobin 12.1, hematocrit 40.0, platelet count 178,00 0. The patient's sed rate is down to 57. Sodium is 142, potassium 4.2, chloride 99, carbon dioxide 32 with a BUN of 41, creatinine 5.25. Poi nt of care sugar this morning was 120. C-reactive protein is 147 and last week was 142. These labs will be transferred and sent to Dr. Vásquez. Probably will need to contact Dr. Vásquez to se e if we need to continue his antibiotics any longer. PHYSICAL EXAMINATION: GENERAL: This is a well-developed, well-nourished, morbidly obese black male in no apparent distres s except he is somewhat upset about missing his ride to therapy this morning. HEENT: Reveals normocephalic, nontraumatic cranium. Pupils are round and reactive. Extraocular mo vements intact. Nose and throat are slightly dry. NECK: Supple, without masses, nodes or bruits. CHEST: Clear to auscultation. No rales, rhonchi or wheezes, or cough is heard. CARDIOVASCULAR: Reveals a regular rate and rhythm without murmurs, gallops or rubs. ABDOMEN: Morbidly obese, soft, nontender, without organomegaly. Normal bowel sounds are noted. : Deferred. EXTREMITIES: Reveal lymphedema with wraps which are changed twice a week by physical therapy here. He is supposed to see Wound Care and he will get those changed hopefully today. IMPRESSION: 1. Osteomyelitis secondary to diabetic foot with the last day of vancomycin, Cipro and Flagyl being today. 2. Diabetic neuropathy. 3. Hypertension. 4. Peripheral vascular disease. 5. Sick sinus syndrome, status post AICD. 6. End-stage renal disease on dialysis 3 times a week on Wednesday, Wednesday, and Wednesday. 7. Morbidly obese. 8. Generalized weakness. ASSESSMENT AND PLAN: 1. The patient is supposed to see Dr. Back today. We will try and get that rescheduled for today . 2. Accu-Cheks a.c. and at bedtime. 3. Labs were done today. Those need to be sent to Dr. Vásquez. We will ask Dr. Vásquez if he wants to continue any antibiotics because he stops today. 4. Fistula placement with Dr. Guajardo on . 5. Dialysis on Wednesday, Wednesday and Wednesday. 6. Dr. Craft will be watching this patient until I get back on next Wednesday.
[2017-07-27] MEDS: Gabapentin 300 MG CAP PO SCH (21:14)
[2017-07-27] MEDS: cloNIDine HCl 0.1 MG TAB PO SCH (21:15)
[2017-07-27] MEDS: Atorvastatin Calcium 20 MG TAB PO SCH (21:15)
[2017-07-27] MEDS: traMADol HCl 50 MG TAB PO PRN (21:15)
[2017-07-27] MEDS: Acetaminophen 500 MG TAB PO PRN (21:15)
[2017-07-28] MEDS: Heparin 5,000 UNITS/ML VIAL SC SCH (08:06)
[2017-07-28] MEDS: Clopidogrel Bisulfate 75 MG TAB PO SCH (08:07)
[2017-07-28] MEDS: Insulin NPH/Reg Insulin Hm 300 UNITS/3 ML VIAL SC SCH ×2 (08:07→18:13)
[2017-07-28] MEDS: Famotidine 20 MG TAB PO SCH (08:07)
[2017-07-28] MEDS: Carvedilol 25 MG TAB PO SCH ×2 (08:08→21:04)
[2017-07-28] MEDS: Atorvastatin Calcium 20 MG TAB PO SCH (21:04)
[2017-07-28] MEDS: cloNIDine HCl 0.1 MG TAB PO SCH (21:04)
[2017-07-28] MEDS: Gabapentin 300 MG CAP PO SCH (21:05)
[2017-07-28] MEDS: traMADol HCl 50 MG TAB PO PRN (21:05)
[2017-07-28] MEDS: Acetaminophen 500 MG TAB PO PRN (21:05)
[2017-07-29] MEDS: Famotidine 20 MG TAB PO SCH (12:14)
[2017-07-29] MEDS: Carvedilol 25 MG TAB PO SCH ×2 (12:14→21:15)
--- NOTE | 2017-07-29 13:41 | PRG ---
DATE OF SERVICE: 07/29/2017 SUBJECTIVE: Mr. Wells is doing well. Denies any complaints. He just returned from having what seem s like an AV fistula placed in his right forearm. He denies any complaints. OBJECTIVE: VITAL SIGNS: He is afebrile, heart rate is 73, respirations 20, oxygen saturation 97%, and blood pr essure is 144/67. CARDIOVASCULAR SYSTEM: S1, S2 plus. RESPIRATORY SYSTEM: Normal vesicular breath sounds. ABDOMEN: Soft, obese, nontender, bowel sounds heard in all quadrants. EXTREMITIES: Chronic venous insufficiency and what looks like chronic lymphedema. IMPRESSION: 1. Diabetic foot. 2. End-stage renal disease on hemodialysis. 3. Peripheral neuropathy. 4. Morbid obesity. 5. Peripheral vascular disease. 6. Diabetes mellitus type 2. PLAN: 1. Continue antibiotics. 2. Continue hemodialysis. 3. Accu-Cheks with sliding scale coverage. 4. Deep venous thrombosis and stress ulcer prophylaxis. 5. Decubitus precautions. 6. Routine laboratory values. 7. Follow up with Dr. Guajardo for his fistula placement. 8. Resume his heparin and his insulin. 9. Discussed with the patient in detail and all questions answered.
[2017-07-29] MEDS: Insulin NPH/Reg Insulin Hm 300 UNITS/3 ML VIAL SC SCH (17:13)
[2017-07-29] MEDS: Heparin 5,000 UNITS/ML VIAL SC SCH (21:14)
[2017-07-29] MEDS: Acetaminophen 500 MG TAB PO PRN (21:14)
[2017-07-29] MEDS: Gabapentin 300 MG CAP PO SCH (21:15)
[2017-07-29] MEDS: cloNIDine HCl 0.1 MG TAB PO SCH (21:15)
[2017-07-29] MEDS: Atorvastatin Calcium 20 MG TAB PO SCH (21:15)
[2017-07-29] MEDS: traMADol HCl 50 MG TAB PO PRN (21:16)
[2017-07-30] MEDS: traMADol HCl 50 MG TAB PO PRN ×2 (03:39→19:07)
[2017-07-30] MEDS: Acetaminophen 500 MG TAB PO PRN ×2 (03:39→18:06)
[2017-07-30] MEDS: Insulin NPH/Reg Insulin Hm 300 UNITS/3 ML VIAL SC SCH ×2 (09:19→17:58)
[2017-07-30] MEDS: Heparin 5,000 UNITS/ML VIAL SC SCH ×2 (09:19→21:18)
[2017-07-30] MEDS: Clopidogrel Bisulfate 75 MG TAB PO SCH (09:20)
[2017-07-30] MEDS: Famotidine 20 MG TAB PO SCH (09:20)
[2017-07-30] MEDS: Carvedilol 25 MG TAB PO SCH ×2 (09:20→21:18)
--- NOTE | 2017-07-30 09:37 | PRG ---
DATE OF SERVICE: 07/30/2017 SUBJECTIVE: Mr. Wells is doing well. Denies any complaints, resting comfortably, tolerating his the rapy. OBJECTIVE: VITAL SIGNS: He is afebrile, heart rate 73, respirations 18, oxygen saturation 97%, blood pressure 140/63. CARDIOVASCULAR: S1, S2 plus. RESPIRATORY: Normal vesicular breath sounds. ABDOMEN: Soft, obese, nontender, bowel sounds heard in all quadrants. EXTREMITIES: Chronic lymphedema and venous insufficiency. LABORATORY VALUES: Blood sugars are 172, 196, 123, 127. IMPRESSION: 1. Osteomyelitis and diabetic foot on IV antibiotics. 2. End-stage renal disease on hemodialysis. 3. Peripheral neuropathy. 4. Morbid obesity. 5. Lower extremity venous insufficiency and lymphedema. 6. Peripheral vascular disease. 7. Diabetes mellitus type 2. PLAN: 1. Continue antibiotics. 2. Accu-Cheks with sliding scale coverage. 3. 1800 calorie heart healthy, renal diet. 4. Decubitus precautions. 5. Physical therapy. 6. Hemodialysis. 7. Routine laboratory values.
[2017-07-30] MEDS: Gabapentin 300 MG CAP PO SCH (21:18)
[2017-07-30] MEDS: cloNIDine HCl 0.1 MG TAB PO SCH (21:18)
[2017-07-30] MEDS: Atorvastatin Calcium 20 MG TAB PO SCH (21:18)
[2017-07-31] MEDS: Insulin NPH/Reg Insulin Hm 300 UNITS/3 ML VIAL SC SCH ×2 (08:05→16:55)
[2017-07-31] MEDS: Heparin 5,000 UNITS/ML VIAL SC SCH ×2 (08:36→20:54)
[2017-07-31] MEDS: Famotidine 20 MG TAB PO SCH (08:37)
[2017-07-31] MEDS: Clopidogrel Bisulfate 75 MG TAB PO SCH (08:38)
[2017-07-31] MEDS: Carvedilol 25 MG TAB PO SCH ×2 (08:38→20:54)
[2017-07-31] MEDS: traMADol HCl 50 MG TAB PO PRN ×2 (10:31→18:33)
[2017-07-31] MEDS: Acetaminophen 500 MG TAB PO PRN ×2 (10:32→18:35)
--- NOTE | 2017-07-31 10:34 | PRG ---
DATE OF SERVICE: 07/31/2017 SUBJECTIVE: Mr. Wells is doing well. Denies any complaints. He states that the pain in his right a rm where the fistula was placed, is improving. He denies any fever or chills. Denies any chest mary ann n or shortness of breath. He is tolerating his hemodialysis. OBJECTIVE: VITAL SIGNS: He is afebrile, heart rate is 68, respirations 18, oxygen saturation is 97%, and blood pressure is 150/68. CARDIOVASCULAR: S1, S2 plus. RESPIRATORY: Normal vesicular breath sounds. ABDOMEN: Soft, obese, nontender, bowel sounds heard in all quadrants. EXTREMITIES: Chronic venous insufficiency and lymphedema. He also has his wrapping around his righ t forearm and wrist where he had continued AV fistula placed by Dr. Guajardo. IMPRESSION: 1. Chronic osteomyelitis and diabetic foot, on antibiotics. 2. End-stage renal disease on hemodialysis. 3. Peripheral neuropathy, improved with gabapentin. 4. Morbid obesity. 5. Lower extremity venous insufficiency and lymphedema. 6. Peripheral vascular disease. 7. Diabetes mellitus type 2. PLAN: 1. Continue current medications. 2. 1800 calorie heart healthy diet. 3. Accu-Cheks with sliding scale coverage. 4. Hemodialysis. 5. Routine laboratory values. 6. DVT and stress ulcer prophylaxis. 7. Decubitus precautions. 8. Pain control. 9. Discussed with patient in detail and all questions answered. No family at the bedside.
[2017-07-31] MEDS: Gabapentin 300 MG CAP PO SCH (20:54)
[2017-07-31] MEDS: cloNIDine HCl 0.1 MG TAB PO SCH (20:54)
[2017-07-31] MEDS: Atorvastatin Calcium 20 MG TAB PO SCH (20:54)
[2017-08-01] MEDS: traMADol HCl 50 MG TAB PO PRN ×3 (00:33→22:02)
[2017-08-01] MEDS: Acetaminophen 500 MG TAB PO PRN ×3 (00:33→22:01)
[2017-08-01] MEDS: Insulin NPH/Reg Insulin Hm 300 UNITS/3 ML VIAL SC SCH ×2 (08:13→16:56)
[2017-08-01] MEDS: Clopidogrel Bisulfate 75 MG TAB PO SCH (08:14)
[2017-08-01] MEDS: Carvedilol 25 MG TAB PO SCH ×2 (08:15→22:02)
[2017-08-01] MEDS: Famotidine 20 MG TAB PO SCH (08:15)
[2017-08-01] MEDS: Heparin 5,000 UNITS/ML VIAL SC SCH ×2 (08:16→22:01)
--- NOTE | 2017-08-01 11:38 | PRG ---
DATE OF SERVICE: 08/01/2017 SUBJECTIVE: Mr. Wells is doing well. He still has some pain in his right forearm where he had his A V fistula placed. He denies any fever or chills. He denies any chest pain or shortness of breath. OBJECTIVE: VITAL SIGNS: He is afebrile, heart rate is 65, respirations 18, oxygen saturation is 96%, and blood pressure is 174/81. CARDIOVASCULAR: S1, S2 plus. RESPIRATORY: Normal vesicular breath sounds. ABDOMEN: Soft, nontender, bowel sounds heard in all quadrants. EXTREMITIES: Without cyanosis or clubbing. Chronic venous insufficiency and lymphedema. Right for earm with JONNA wrapping. NEUROVASCULAR: No neurovascular compromise. LABORATORY VALUES: Blood sugars are 151, 140, 92 and 109. IMPRESSION: 1. End-stage renal disease on hemodialysis. 2. Chronic osteomyelitis and diabetic foot on IV antibiotics. 3. Peripheral neuropathy. 4. Morbid obesity. 5. Lower extremity venous insufficiency and lymphedema. 6. Peripheral vascular disease. 7. Diabetes mellitus type 2. PLAN: 1. Continue current medications. 2. Nutritional support. 3. Pain control. 4. Hemodialysis. 5. Accu-Cheks with sliding scale coverage. 6. Weekly CBC, CRP, and sed rate. 7. DVT and stress ulcer prophylaxis. 8. Decubitus precautions. 9. Dr. Adriana Villalba back tonight.
[2017-08-01] MEDS: Atorvastatin Calcium 20 MG TAB PO SCH (22:01)
[2017-08-01] MEDS: cloNIDine HCl 0.1 MG TAB PO SCH (22:01)
[2017-08-01] MEDS: Gabapentin 300 MG CAP PO SCH (22:01)
[2017-08-02] MEDS: traMADol HCl 50 MG TAB PO PRN ×2 (06:16→21:01)
[2017-08-02] MEDS: Acetaminophen 500 MG TAB PO PRN ×2 (06:16→21:01)
[2017-08-02] MEDS: Insulin NPH/Reg Insulin Hm 300 UNITS/3 ML VIAL SC SCH ×2 (08:11→17:18)
[2017-08-02] MEDS: Heparin 5,000 UNITS/ML VIAL SC SCH ×2 (09:11→20:59)
[2017-08-02] MEDS: Clopidogrel Bisulfate 75 MG TAB PO SCH (09:12)
[2017-08-02] MEDS: Carvedilol 25 MG TAB PO SCH ×2 (09:12→21:00)
[2017-08-02] MEDS: Famotidine 20 MG TAB PO SCH (09:12)
[2017-08-02] MEDS: Atorvastatin Calcium 20 MG TAB PO SCH (21:00)
[2017-08-02] MEDS: cloNIDine HCl 0.1 MG TAB PO SCH (21:00)
[2017-08-02] MEDS: Gabapentin 300 MG CAP PO SCH (21:01)
[2017-08-03] MEDS: Famotidine 20 MG TAB PO SCH (08:44)
[2017-08-03] MEDS: Heparin 5,000 UNITS/ML VIAL SC SCH ×2 (08:45→21:33)
[2017-08-03] MEDS: Carvedilol 25 MG TAB PO SCH ×2 (08:45→21:34)
[2017-08-03] MEDS: Clopidogrel Bisulfate 75 MG TAB PO SCH (08:45)
[2017-08-03] MEDS: Insulin NPH/Reg Insulin Hm 300 UNITS/3 ML VIAL SC SCH ×2 (08:45→17:05)
--- NOTE | 2017-08-03 13:05 | PRG ---
DATE OF SERVICE: 08/03/2017 DATE OF ADMISSION: 06/18/2017 HISTORY OF PRESENT ILLNESS: Mr. Wells is a very pleasant 61-year-old black male with lymphedema, aniya ateral extremity cellulitis, end-stage renal disease, multiple decubitus and dialysis 3 times a week . The patient states he is doing very well. He went to dialysis yesterday, so I did not get to see coral tejeda. The patient is doing well. He had a fistula placed in his right arm which is doing well. He hanna s no significant complaints with that. He states that he supposed to see Dr. Back, the wound care today and rewrapping of his legs. He has no complaints, states he is doing well. He has no signif icant pain. PHYSICAL EXAMINATION: VITAL SIGNS: Reveal blood pressure is 137/60, pulse 66, respirations 17, O2 sat 95% on room air, te mperature 98.2. GENERAL: This is a well-developed, morbidly obese white male in no apparent distress at this time. HEENT: Reveals normocephalic, nontraumatic cranium. Pupils are equally round and reactive. Extrao cular movements intact. Nose and throat are slightly dry. NECK: Supple, without masses, nodes or bruits. CHEST: Clear to auscultation, but distant breath sounds. HEART: Reveals a regular rate and rhythm without murmurs, gallops or rubs. ABDOMEN: Morbidly obese, soft, nontender. Normal bowel sounds are noted. : Exam is deferred. EXTREMITIES: Reveal lymphedema with wraps on which are much improved. The patient is supposed to s ee the wound care doctor today. IMPRESSION: 1. Osteomyelitis secondary to diabetic foot, cleared. 2. Diabetic neuropathy. 3. Generalized weakness. 4. Hypertension. 5. Peripheral vascular disease. 6. Sick sinus syndrome, status post automatic implantable cardioverter defibrillator. 7. Recent placement of a dialysis fistula on the right upper extremity. 8. End-stage renal disease on dialysis 3 times a week on Wednesday, Wednesday, and Wednesday. 9. Morbid obesity. 10. Generalized weakness. PLAN: 1. The patient will see Dr. Back today for wound care again. 2. Continue Accu-Cheks a.c. and bedtime. 3. Continue to follow the patient's blood pressure closely. 4. Continue dialysis Wednesday, Wednesday, and Wednesday. 5. Continue physical therapy and occupational therapy. Keep the patient's balance a little bit bet ter since he is beginning to walk.
[2017-08-03] MEDS: cloNIDine HCl 0.1 MG TAB PO SCH (21:33)
[2017-08-03] MEDS: traMADol HCl 50 MG TAB PO PRN (21:33)
[2017-08-03] MEDS: Acetaminophen 500 MG TAB PO PRN (21:34)
[2017-08-03] MEDS: Gabapentin 300 MG CAP PO SCH (21:34)
[2017-08-03] MEDS: Atorvastatin Calcium 20 MG TAB PO SCH (21:34)
[2017-08-04] MEDS: Insulin NPH/Reg Insulin Hm 300 UNITS/3 ML VIAL SC SCH ×2 (08:13→17:23)
[2017-08-04] MEDS: Heparin 5,000 UNITS/ML VIAL SC SCH ×2 (08:15→21:27)
[2017-08-04] MEDS: Carvedilol 25 MG TAB PO SCH ×2 (08:17→21:26)
[2017-08-04] MEDS: Famotidine 20 MG TAB PO SCH (08:17)
[2017-08-04] MEDS: Clopidogrel Bisulfate 75 MG TAB PO SCH (08:17)
--- NOTE | 2017-08-04 10:14 | PRG ---
DATE OF SERVICE: 08/04/2017 DATE OF ADMISSION: 06/18/2017 HISTORY OF PRESENT ILLNESS: Mr. Wells is a very pleasant 61-year-old black male that initially was a dmitted to [facility] for cellulitis of bilateral lower extremities. He also hanna s end-stage renal disease, multiple decubiti and is on dialysis 3 times a week. He has lymphedema. He has wraps and his wounds are doing much better. He saw the electronic specialist yesterday and she rewrapped him and is very pleased with his progress. He is on his way to dialysis probably in t he next 10 minutes. SUBJECTIVE: The patient is doing well. He is wondering when he will be going home. He has no comp laints. He says that he has a family member that was able to pick him up on Wednesday. Otherwise, jim collier has really no way to go home. He has no other complaints today. PHYSICAL EXAMINATION: VITAL SIGNS: Reveal blood pressure 153/70, pulse 64-67, respirations 20, O2 sat 94%-95% on room air , temperature 96.5. GENERAL: This is a well-developed, well-nourished, very pleasant black male in no apparent distress at this time. HEENT: Reveals normocephalic, nontraumatic cranium. Pupils are equally round and reactive. Extrao cular movements intact. Nose and throat are slightly dry. NECK: Supple, without masses, nodes or bruits. CHEST: Clear to auscultation. No rales, rhonchi or wheezes are heard. HEART: Reveals a regular rate and rhythm without murmurs, gallops or rubs. ABDOMEN: Soft, nontender, without organomegaly, normal bowel sounds are noted. No rebound or guard ing is noted. : Exam is deferred. EXTREMITIES: Reveal lymphedema wraps which are much improved. The patient saw the wound care docpratima mirza yesterday and Dr. Back is very pleased. IMPRESSION: 1. Osteomyelitis secondary to diabetic foot, cleared. 2. Diabetic neuropathy. 3. Generalized weakness, much improved. 4. Hypertension. 5. Peripheral vascular disease. 6. Sick sinus syndrome, status post automatic implantable cardioverter defibrillator. 7. Replacement of dialysis fistula in his right upper extremity still healing. 8. Generalized weakness. 9. End-stage renal disease on dialysis Wednesday, Wednesday, and Wednesday for which he is going today. 10. Morbid obesity. PLAN: 1. Patient is on his way to dialysis. 2. The patient has continued doing much better. He was able to transfer with assistance into a car today. We will work in a couple more days and he will be discharged Wednesday morning. 3. Continue physical therapy and occupational therapy. 4. Continue dialysis Wednesday, Wednesday, and Wednesday. 5. Continue to follow the patient's blood pressure closely. 6. Continue Accu-Cheks a.c. and at bedtime.
[2017-08-04] MEDS: cloNIDine HCl 0.1 MG TAB PO SCH (21:25)
[2017-08-04] MEDS: Gabapentin 300 MG CAP PO SCH (21:27)
[2017-08-04] MEDS: Atorvastatin Calcium 20 MG TAB PO SCH (21:27)
[2017-08-05] MEDS: Heparin 5,000 UNITS/ML VIAL SC SCH ×2 (08:19→21:26)
[2017-08-05] MEDS: Insulin NPH/Reg Insulin Hm 300 UNITS/3 ML VIAL SC SCH ×2 (08:20→17:25)
[2017-08-05] MEDS: Carvedilol 25 MG TAB PO SCH ×2 (08:20→21:27)
[2017-08-05] MEDS: Clopidogrel Bisulfate 75 MG TAB PO SCH (08:21)
[2017-08-05] MEDS: Famotidine 20 MG TAB PO SCH (08:21)
--- NOTE | 2017-08-05 10:31 | PRG ---
DATE OF SERVICE: 08/05/2017 DATE OF ADMISSION: 06/18/2017 HISTORY OF PRESENT ILLNESS: Mr. Wells is a very pleasant 61-year-old black male with lymphedema. He had developed a cellulitis of both lower extremities. He also has comorbidities of end-stage renal disease. He was started on IV antibiotics including vancomycin, Cipro, Flagyl. He finished those a couple days ago. He ended up having a fistula for his dialysis in his right wrist and he is actua lly doing very well. His discharge plan is for discharge on Wednesday when his family can pick him u p. SUBJECTIVE: The patient states he has no complaints. He states he is getting stronger. He states he is able to transfer much better. He was able to transfer in and out of a car yesterday, signific antly better than the previous last week. He has no complaints. PHYSICAL EXAMINATION: VITAL SIGNS: Reveals blood pressure 145/72, pulse 65 to 67, respirations 18 to 20, O2 saturation 96 to 98%, temperature 98.2. GENERAL: This is a well-developed, well-nourished, very pleasant, morbidly obese black male in no a pparent distress at this time. HEENT: Reveals normocephalic, nontraumatic cranium. The pupils are equally round and reactive. Ex traocular movements are intact. Nose and throat are slightly dry. NECK: Supple, without masses, nodes or bruits. LUNGS: Chest is clear to auscultation. No rales, rhonchi, or wheezes are heard. No cough is noted . HEART: Reveals a regular rate and rhythm. No murmurs, gallops, or rubs are noted. ABDOMEN: Morbidly obese. Soft, nontender, without organomegaly, with normal bowel sounds that whic h are noted. No rebound or guarding is noted. GENITOURINARY: Deferred. EXTREMITIES: Reveal lymphedema wraps are still in place. He continues to have much better control of his lymphedema. Patient did have a very successful dialysis yesterday. IMPRESSION: 1. Osteomyelitis secondary to a diabetic foot, cleared. 2. Diabetic neuropathy, cleared. 3. Generalized weakness, much improved. 4. Hypertension. 5. Peripheral vascular disease. 6. Sick sinus syndrome with AICD. 7. Dialysis fistula in the right upper extremity healing very well. 8. Generalized weakness. 9. End-stage renal disease on dialysis Wednesday, Wednesday, and Wednesday. 10. Morbid obesity. PLAN: 1. Continue dialysis. 2. Continue lymphedema wraps, which was supposed to be changed today. 3. Continue dialysis Wednesday, Wednesday, and Wednesday. 4. Follow the patient's blood pressure closely. 5. Accu-Cheks a.c. and at bedtime. 6. Stress ulcer prophylaxis. 7. Deep venous thrombosis prophylaxis. 8. Decubitus precautions. 9. Continue physical therapy and occupational therapy. 10. Expected discharge on Wednesday.
[2017-08-05] MEDS: HumaLOG 300 UNITS/3 ML VIAL SC PRN (11:12)
[2017-08-05] MEDS: Gabapentin 300 MG CAP PO SCH (21:27)
[2017-08-05] MEDS: Atorvastatin Calcium 20 MG TAB PO SCH (21:27)
[2017-08-05] MEDS: cloNIDine HCl 0.1 MG TAB PO SCH (21:28)
[2017-08-05] MEDS: traMADol HCl 50 MG TAB PO PRN (21:28)
[2017-08-05] MEDS: Acetaminophen 500 MG TAB PO PRN (21:28)
[2017-08-06] MEDS: Clopidogrel Bisulfate 75 MG TAB PO SCH (08:36)
[2017-08-06] MEDS: Famotidine 20 MG TAB PO SCH (08:36)
[2017-08-06] MEDS: Insulin NPH/Reg Insulin Hm 300 UNITS/3 ML VIAL SC SCH ×2 (08:37→17:17)
[2017-08-06] MEDS: Heparin 5,000 UNITS/ML VIAL SC SCH ×2 (08:37→21:23)
[2017-08-06] MEDS: Carvedilol 25 MG TAB PO SCH ×2 (08:37→21:25)
--- NOTE | 2017-08-06 10:54 | PRG ---
DATE OF SERVICE: 08/06/2017 DATE OF ADMISSION: 06/18/2017 HISTORY OF PRESENT ILLNESS: Mr. Wells is a very pleasant 61-year-old black male with lymphedema. He developed cellulitis in both extremities and was admitted to [facility] because he also had end-stage renal disease. He was started on IV antibiotics, Cipro, and Flagyl, and fini shed those several days ago. He ended up having a fistula for his dialysis in his right wrist. He is doing very well and is for discharge on Wednesday. SUBJECTIVE: The patient states he is doing well. He does have someone that will help him at home. He is able to transfer in and out of the car and will be transferring tomorrow. He has no complain ts today. He is on his way to dialysis. PHYSICAL EXAMINATION: VITAL SIGNS: Reveal blood pressure 151/70, pulse 65-69, respirations 18-20, O2 sat 95%, temperature 98.4 max. GENERAL: This is a well-developed, well-nourished, morbidly obese black male in no apparent distres s at this time. HEENT: Reveals normocephalic and nontraumatic cranium. Pupils are equally round and reactive. Ext raocular movements intact. Nose and throat are clear, but dry. NECK: Supple, without masses, nodes or bruits. CHEST: Clear to auscultation, no rales, rhonchi, wheezes or cough is heard. HEART: Reveals a regular rate and rhythm without murmurs, gallops or rubs. ABDOMEN: Morbidly obese. Normal bowel sounds are noted. No rebound or guarding is noted. : Exam is deferred. EXTREMITIES: Reveal lymphedema wraps should be rewrapped today. The patient's lymphedema is much b franck controlled. He is on his way to dialysis. IMPRESSION: 1. Osteomyelitis, cleared. 2. Diabetic foot, much improved. 3. Diabetic neuropathy, much improved. 4. Generalized weakness, improved. 5. Hypertension. 6. Peripheral vascular disease. 7. Sick sinus syndrome with automatic implantable cardioverter defibrillator. 8. Dialysis fistula in the right upper extremity, healing well. 9. Generalized weakness. 10. End-stage renal disease on dialysis Wednesday, Wednesday, and Wednesday. 11. Morbid obesity. PLAN: 1. The patient will be discharged on Wednesday morning. His family will come and pick him up. 2. Continue lymphedema wraps. 3. Continue dialysis Wednesday, Wednesday, and Wednesday. 4. Continue to follow blood pressure closely. 5. Continue Accu-Cheks a.c. and at bedtime. 6. Stress ulcer prophylaxis. 7. Deep venous thrombosis prophylaxis. 8. Decubitus precautions. 9. Continue physical therapy and occupational therapy. 10. Discharge tomorrow. DISCHARGE MEDICATIONS: Will include the following, 1. Tylenol 650 p.r.n., not to exceed 3000 mg a day. 2. Norvasc 10 daily. 3. Aspirin 81 chewable daily. 4. Lipitor 20 at bedtime. 5. Carvedilol 12.5 mg b.i.d. 6. Clonidine 0.2 mg at bedtime. 7. Plavix 75 mg a day. 8. Pepcid 20 mg a day. 9. Neurontin 300 mg at bedtime. 10. Insulin 70/30, 15 units subcutaneous twice a day. 11. Sliding scale insulin, Humalog p.r.n. hyperglycemia. 12. Protonix [address] Zapata will be making rounds tomorrow and he will discharge the patient.
[2017-08-06] MEDS: traMADol HCl 50 MG TAB PO PRN (21:24)
[2017-08-06] MEDS: Acetaminophen 500 MG TAB PO PRN (21:25)
[2017-08-06] MEDS: Atorvastatin Calcium 20 MG TAB PO SCH (21:25)
[2017-08-06] MEDS: cloNIDine HCl 0.1 MG TAB PO SCH (21:25)
[2017-08-06] MEDS: Gabapentin 300 MG CAP PO SCH (21:25)
[2017-08-07 08:26] VITALS: BP 141/66
[2017-08-07] MEDS: Insulin NPH/Reg Insulin Hm 300 UNITS/3 ML VIAL SC SCH (08:35)
[2017-08-07] MEDS: Heparin 5,000 UNITS/ML VIAL SC SCH (09:35)
[2017-08-07] MEDS: Famotidine 20 MG TAB PO SCH (09:35)
[2017-08-07] MEDS: Clopidogrel Bisulfate 75 MG TAB PO SCH (09:35)
[2017-08-07] MEDS: Carvedilol 25 MG TAB PO SCH (09:36)
[2017-08-07 11:19] VITALS: TEMP 98.1
--- NOTE | 2017-08-07 14:34 | DIS ---
DATE OF ADMISSION TO SKILLED UNIT: 06/18/2017 DATE OF DISCHARGE TO HOME: 08/06/[address] Murali Villalba. FINAL DIAGNOSES: Osteomyelitis of left foot requiring IV antibiotics for 6 weeks with vancomycin at dialysis and oral Cipro and Flagyl. He also has end-stage renal disease required hemodialysis 3 ti mes weekly and required wound care, because of significant lymphedema of both legs with bilateral ly mphedema wraps. HOSPITAL COURSE: He has done well during his entire stay. He has finished his antibiotics and has been cleared by Infectious Disease to remain off antibiotics. He has had a fistula placed in his ri t arm for his hemodialysis, tolerated well. He had been up and about with physical therapy and he is ready for discharge home. His discharge vital signs showing to have blood pressure of 117/50, t emperature 97.4, pulse 70, respirations 18, O2 sats 96%. Laboratories not been done in 2 weeks. Hi s lungs were clear. Cardiac examination shows regular rhythm. Legs were wrapped with lymphedema wr aps. FOLLOWUP: He will follow up with his primary care physician, Dr. Preston Perkins. DISCHARGE MEDICATIONS: His discharge medications included clonidine 0.2 mg in the morning, amlodipi ne 10 mg in the morning, Protonix 40 daily, Humulin N 15 units twice daily, gabapentin 300 at night, famotidine 20 daily, Plavix 75 daily, carvedilol 12.5 twice daily, atorvastatin 20 daily, aspirin 8 1 daily, Tylenol as needed.
== END 2017-08-07 09:40 | disposition home health service (06) | DRG 638 ==
LOC: NAV ACUTE 18:33
PROVIDERS: ADMIT Family Medicine; ATTEND Family Medicine
DX: E11.621 Type 2 diabetes mellitus with foot ulcer (principal); L03.116 Cellulitis of left lower limb; M86.9 Osteomyelitis, unspecified; I13.2 Hypertensive heart and chronic kidney disease with heart failure and with stage 5 chronic kidney disease, or end stage renal disease; N18.6 End stage renal disease; E11.22 Type 2 diabetes mellitus with diabetic chronic kidney disease; I50.32 Chronic diastolic (congestive) heart failure; E11.40 Type 2 diabetes mellitus with diabetic neuropathy, unspecified; I49.5 Sick sinus syndrome; I95.9 Hypotension, unspecified; Z68.43 Body mass index [BMI] 50.0-59.9, adult; L97.529 Non-pressure chronic ulcer of other part of left foot with unspecified severity; Z79.4 Long term (current) use of insulin; E11.69 Type 2 diabetes mellitus with other specified complication; E11.51 Type 2 diabetes mellitus with diabetic peripheral angiopathy without gangrene; Z99.2 Dependence on renal dialysis; Z87.891 Personal history of nicotine dependence; E66.01 Morbid (severe) obesity due to excess calories; E78.5 Hyperlipidemia, unspecified; Z95.810 Presence of automatic (implantable) cardiac defibrillator; Z86.73 Personal history of transient ischemic attack (TIA), and cerebral infarction without residual deficits; I89.0 Lymphedema, not elsewhere classified; R53.1 Weakness; I45.9 Conduction disorder, unspecified
CPT/HCPCS: 36415; 36416; 80053; 80202; 82565; 85014; 85018; 85025; 85049; 85652; 86140; 87070; 87077; 87186; 87205; 97602; G8978-GP-CL; G8979-GP-CK; J1644; J3370; J7050; Q0162

== ENCOUNTER 2018-05-03 08:24 | Outpatient (CLI) | payer MEDICARE ==
--- NOTE | 2018-05-03 10:13 | CT ---
NONCONTRAST CT HEAD: Date: 05-03-18 History: Ataxia. Comparison: 02-19-14 FINDINGS: There are scattered areas of decreased attenuation of the periventricular white matter which are nons pecific but likely reflective of chronic small vessel ischemic changes. There are stable remote lacun ar infarctions seen within the left thalamus and right caudate head with stable remote lacunar infarc tion in the inferior aspect of the bibiana which were seen on prior study in 2013. There is no evidence of an acute cortical infarction, hemorrhage, mass effect, or midline shift. Mild cerebral volume loss is present. The ventricular system is normal in size, shape, and position. Visualized paranasal sinu ses and mastoid air cells are clear. IMPRESSION: 1. No acute intracranial abnormalities demonstrated. 2. Chronic small vessel ischemic changes with stable remote lacunar infarctions in the left thalamus, right caudate nucleus and in the bibiana. 3. Mild cerebral volume loss. POS: GRACIELA
== END 2018-05-03 08:25 | disposition home or self-care (01) ==
LOC: NAV CT 08:24
PROVIDERS: ATTEND Psychiatry & Neurology Neurology
DX: R27.0 Ataxia, unspecified (principal); Z86.73 Personal history of transient ischemic attack (TIA), and cerebral infarction without residual deficits
CPT/HCPCS: 70450

== ENCOUNTER 2019-08-27 16:35 | Emergency (ER) | payer MEDICARE ==
[2019-08-27] MEDS ORDERED: Bacitracin 1 PK ONE (17:20)
[2019-08-27] MEDS ORDERED: Sulfameth/Trimethoprim DS 800-160mg TAB ONE (17:21)
== END 2019-08-27 17:30 | disposition home or self-care (01) ==
LOC: NAV ERS 16:35
DX: S60.422A Blister (nonthermal) of right middle finger, initial encounter (principal); L03.011 Cellulitis of right finger; L02.511 Cutaneous abscess of right hand; I12.0 Hypertensive chronic kidney disease with stage 5 chronic kidney disease or end stage renal disease; E11.22 Type 2 diabetes mellitus with diabetic chronic kidney disease; N18.6 End stage renal disease; Z87.891 Personal history of nicotine dependence; Z79.4 Long term (current) use of insulin; Z79.899 Other long term (current) drug therapy; X58.XXXA Exposure to other specified factors, initial encounter
CPT/HCPCS: 26010

== ENCOUNTER 2020-04-17 19:54 | Inpatient (IN) | payer MEDICARE ==
[2020-04-17] MEDS: traMADol HCl 50 MG TAB PO PRN (22:16)
[2020-04-18] MEDS: traMADol HCl 50 MG TAB PO PRN ×3 (05:07→21:15)
[2020-04-18] MEDS: Levothyroxine Sodium 25 MCG TAB PO SCH (05:09)
[2020-04-18 06:07] LABS: ALT (SGPT) 16 U/L (8-55); AST (SGOT) 20 U/L (5-34); Albumin 3.2 g/dL (3.4-4.8); Alkaline Phosphatase 65 U/L (40-110); Anion Gap 16 mmol/L (10-20); BUN (Urea Nitrogen) 20 mg/dL (8.4-25.7); Bilirubin, Total 0.2 mg/dL (0.2-1.2); Calc. Creatinine Clearance 0 mL/min (70-130); Calcium 9.1 mg/dL (7.8-10.44); Carbon Dioxide 26 mmol/L (23-31); Chloride 97 mmol/L (98-107); Estimated GFR-MDRD 11; Globulin 4.5 g/dL (2.4-3.5); Glucose 150 mg/dL (80-115); Potassium 3.5 mmol/L (3.5-5.1); Protein, Total 7.7 g/dL (5.8-8.1); Sodium 135 mmol/L (136-145)
[2020-04-18 06:09] LABS: #Basophils 0.1 thou/uL (0.0-0.2); #Eosinphils 0.3 thou/uL (0.0-0.7); #Lymphocytes 1.8 thou/uL (1.20-3.40); #Neutrophils 8.1 thou/uL (1.40-6.50); %Basophils 0.9 % (0.0-1.0); %Eosinophils 2.7 % (0.0-10.0); %Lymphocytes 16.2 % (21.0-51.0); %Monocytes 8.6 % (0.0-10.0); %Neutrophils 71.5 % (42.0-75.0); Anisocytosis SLIGHT = 6-15 cells (100X) (0-5/hpf); Hemoglobin 8.9 g/dL (14.0-18.0); Hypochromia SLIGHT = 6-15 cells (100X) (0-5/hpf); MDiff Complete? YES; Mean Corpuscular HGB CONC 29.4 g/dL (32.0-36.0); Mean Corpuscular Hemoglobin 26.8 pg (27.0-31.0); Mean Corpuscular Volume 91.3 fL (78.0-98.0); Mean Platelet Volume 6.8 fL (7.4-10.4); Platelet Count 308 thou/uL (130-400); Platelet Morphology Comment Appears Adequate; RBC Distribution Width 15.2 % (11.5-14.5); Red Blood Cell (RBC) Count 3.33 mill/uL (4.70-6.10); White Blood Cell (WBC) Count 11.4 thou/uL (4.8-10.8)
[2020-04-18] MEDS: Fluticasone Propionate Nasal Spray 16 gm Bottle NASAL SCH (08:50)
[2020-04-18] MEDS: HumuLIN 70/30 (300 UNITS/3 ML VIAL) SC SCH ×2 (08:50→21:08)
[2020-04-18] MEDS: Clopidogrel Bisulfate 75 MG TAB PO SCH (08:52)
[2020-04-18] MEDS: Aspirin 81 mg Enteric Coated Tablet PO SCH (08:52)
[2020-04-18] MEDS: Calcium Acetate 667 MG CAP PO SCH ×3 (08:52→15:50)
[2020-04-18] MEDS: Atorvastatin Calcium 20 MG TAB PO SCH (08:52)
[2020-04-18] MEDS: Folic Acid/Vit B Comp W-C PO SCH (08:52)
[2020-04-18] MEDS: Gabapentin 300 MG CAP PO SCH ×3 (08:52→21:08)
[2020-04-18] MEDS: Midodrine HCl 5 MG TAB PO SCH ×2 (08:55→15:50)
[2020-04-18] MEDS: Cephalexin 500 MG CAP PO SCH ×3 (09:06→21:08)
--- NOTE | 2020-04-18 17:38 | HP ---
PRINCIPAL DIAGNOSES: Right toe gangrene requiring amputation and significant peripheral vascular disease requiring percutaneous transluminal coronary angioplasty and stent placement, here for wound VAC therapy and continue dialysis. BRIEF HISTORY: This is a 64-year-old -[place] male who is known to me and is a patient of Dr. Murali Villalba, presented to the hospital about 3 weeks ago prior to this admission with fever, chills, and leukocytosis. He was noted to have dry gangrene of the fourth right toe as well as lymphedema. His cultures were negative. His antibiotics were stopped and he was discharged home. He did not follow up with his physician. He also did not wear his compression stockings. He returned to the hospital with hypotension and increasing right foot pain. There was question of osteomyelitis involving the distal aspect of the first great toe. There was also cellulitis. He was admitted to the hospital for evaluation. He underwent PTCA and stent placement to the right superficial femoral artery. He underwent amputation fourth distal right foot and partial amputation of the right first toe. Wound VAC was placed and he was felt to be a candidate for inpatient rehabilitation and transferred here. Currently, the patient is resting in bed and doing well except for pain. He did not come here with any pain medicines and I started him on tramadol and that seems to be helping. Denies any fever or chills. Wound VAC is back on. He denies any questions or concerns. No fever or chills. PAST MEDICAL HISTORY: 1. Diabetes mellitus, type 2. 2. Hypertension. 3. Dyslipidemia. 4. Peripheral vascular disease. 5. Chronic lymphedema. 6. Possible gangrene of the right index finger, distal phalanx area. 7. End-stage renal disease, on hemodialysis. 8. Diabetic peripheral neuropathy. PAST SURGICAL HISTORY: 1. Pacemaker placement. 2. Dialysis catheter placement. 3. Laparoscopic cholecystectomy. 4. Surgery on the left foot. 5. Left leg stent placement. 6. Recent right leg stent placement. 7. Recent right fourth toe amputation and right first toe partial amputation. FAMILY HISTORY: Positive for coronary artery disease in his mother. PSYCHOSOCIAL HISTORY: Former smoker, quit smoking in 1993. Denies any alcohol or recreational drug abuse. ALLERGIES: PENICILLIN. REVIEW OF SYSTEMS: CARDIOVASCULAR: Denies any chest pain, shortness of breath, palpitations, PND, orthopnea, or pedal edema. RESPIRATORY SYSTEM: Denies any chronic cough, expectoration, or pleuritic-type chest pain. GASTROINTESTINAL SYSTEM: Denies any nausea, vomiting, diarrhea, constipation, hematemesis, melena, or hematochezia. GENITOURINARY SYSTEM: Denies any frequency, urgency, dysuria, or hematuria. CENTRAL NERVOUS SYSTEM: Other than peripheral neuropathy, denies any focal numbness, weakness, or fainting spells. EXTREMITIES: Complains of right foot pain. ENT: Denies any difficulty or changes with speech, vision, or swallowing. SKIN: Denies any rash, but does have chronic lymphedema and stasis dermatitis. PHYSICAL EXAMINATION: GENERAL: Pleasant 64-year-old -[place] male, resting comfortably in bed and denies any concerns. He responds appropriately to questions. No family at bedside. VITAL SIGNS: He is afebrile, heart rate 77, respirations 20, oxygen saturation 96% on room air, and blood pressure 97/41. HEENT: Normocephalic and atraumatic. Pupils are equally reacting to light and accommodation. NECK: No JVD, thyromegaly, cervical lymphadenopathy, or throat exudates. No carotid bruits. CARDIOVASCULAR SYSTEM: S1 and S2 plus. RESPIRATORY SYSTEM: Normal vesicular breath sounds with decreased air entry at the bases. ABDOMEN: Soft, obese, and nontender. Bowel sounds heard in all quadrants. EXTREMITIES: Without cyanosis, clubbing. Chronic lymphedema. Stasis dermatitis is present. Right foot with wound VAC. CENTRAL NERVOUS SYSTEM: Awake and responsive. Cranial nerves 2 through 12 intact. Peripheral neuropathy. Otherwise, nonfocal. LABORATORY DATA: Laboratory values done this morning shows a white count of 11.4, H and H are 8.9 and 30.4. Sodium 135, potassium 3.5, BUN and creatinine are 20 and 5.41. Blood sugars are 181, 150, and 148. IMPRESSION: 1. Osteomyelitis and gangrene requiring amputation of the right fourth toe and partial amputation of the right great toe and wound VAC placement. 2. Peripheral vascular disease requiring percutaneous transluminal coronary angioplasty and stent placement to the right superficial femoral. 3. Diabetes mellitus type 2. 4. End-stage renal disease, on hemodialysis. 5. Hypertension. 6. Dyslipidemia. 7. Chronic lymphedema. 8. Peripheral neuropathy. 9. Deconditioning. PLAN: 1. Continue current medications. 2. Add tramadol 50 mg q.6 p.r.n. for pain. 3. 1800-calorie heart healthy ADA renal diet. 4. Accu-Cheks with sliding scale coverage. 5. Monitor blood pressure and adjust medications as needed. 6. Wound VAC care. 7. Finish Keflex for his duration. 8. Monitor for any recurrence of infection. 9. Hemodialysis per Nephrology. 10. PT/OT eval and treat. 11. DVT prophylaxis with PlexiPulses. 12. Decubitus precautions. 13. Stress ulcer prophylaxis. 14. Routine laboratory values. 15. Discussed with the patient in detail. All questions answered. Job ID: [id number]
[2020-04-18] MEDS: rOPINIRole HCl 1 MG TAB PO SCH (21:08)
[2020-04-19] MEDS: Levothyroxine Sodium 25 MCG TAB PO SCH (05:11)
[2020-04-19] MEDS: Calcium Acetate 667 MG CAP PO SCH ×3 (07:00→18:08)
[2020-04-19] MEDS: Midodrine HCl 5 MG TAB PO SCH ×2 (07:01→18:08)
[2020-04-19] MEDS: Clopidogrel Bisulfate 75 MG TAB PO SCH (09:00)
--- NOTE | 2020-04-19 09:29 | PRG ---
DATE OF SERVICE: 04/19/2020 SUBJECTIVE: Mr. Wells is doing well, seen on his way to dialysis. He denies any questions or concerns. Pain is better controlled. OBJECTIVE: VITAL SIGNS: He is afebrile. Heart rate is 77, blood pressure 84/44. CARDIOVASCULAR: S1 and S2 plus. RESPIRATORY: Normal vesicular breath sounds. ABDOMEN: Soft, nontender. Bowel sounds heard in all quadrants. EXTREMITIES: Without cyanosis or clubbing. Chronic edema with stasis dermatitis. CENTRAL NERVOUS SYSTEM: Grossly nonfocal. IMPRESSION: 1. Recent cellulitis and osteomyelitis, requiring complete amputation of the right fourth toe and partial amputation of the right great toe. 2. Peripheral vascular disease, requiring percutaneous transluminal coronary angioplasty and stent placement to right superficial femoral artery. 3. Diabetes mellitus type 2. 4. Hypertension. 5. Dyslipidemia. 6. End-stage renal disease, on hemodialysis. 7. Diabetic peripheral neuropathy. 8. Deconditioning. PLAN: 1. Continue current medications. 2. 1800 calorie heart healthy ADA renal diet. 3. Accu-Cheks with sliding scale coverage. 4. Wound VAC care. 5. DVT prophylaxis with PlexiPulses. 6. Decubitus precaution. 7. Stress ulcer prophylaxis. 8. Routine laboratory values. 9. Hemodialysis. 10. Physical therapy. 11. Dr. Zapata on-call this weekend and Dr. Villalba will assume care from Wednesday night. Job ID: [id number]
[2020-04-19] MEDS: Aspirin 81 mg Enteric Coated Tablet PO SCH (10:29)
[2020-04-19] MEDS: Atorvastatin Calcium 20 MG TAB PO SCH (10:29)
[2020-04-19] MEDS: Cephalexin 500 MG CAP PO SCH ×3 (10:29→20:19)
[2020-04-19] MEDS: Gabapentin 300 MG CAP PO SCH ×3 (10:30→20:19)
[2020-04-19] MEDS: HumuLIN 70/30 (300 UNITS/3 ML VIAL) SC SCH ×2 (16:31→21:12)
[2020-04-19] MEDS: Fluticasone Propionate Nasal Spray 16 gm Bottle NASAL SCH (16:32)
[2020-04-19] MEDS: Folic Acid/Vit B Comp W-C PO SCH (16:32)
[2020-04-19] MEDS: traMADol HCl 50 MG TAB PO PRN (20:19)
[2020-04-19] MEDS: rOPINIRole HCl 1 MG TAB PO SCH (20:19)
[2020-04-20] MEDS: traMADol HCl 50 MG TAB PO PRN ×2 (02:50→11:38)
[2020-04-20] MEDS: Levothyroxine Sodium 25 MCG TAB PO SCH (05:31)
[2020-04-20] MEDS: Midodrine HCl 5 MG TAB PO SCH ×2 (08:24→17:09)
[2020-04-20] MEDS: Cephalexin 500 MG CAP PO SCH ×3 (08:25→21:03)
[2020-04-20] MEDS: Calcium Acetate 667 MG CAP PO SCH ×3 (08:25→17:09)
[2020-04-20] MEDS: Fluticasone Propionate Nasal Spray 16 gm Bottle NASAL SCH (08:25)
[2020-04-20] MEDS: Clopidogrel Bisulfate 75 MG TAB PO SCH (08:25)
[2020-04-20] MEDS: Atorvastatin Calcium 20 MG TAB PO SCH (08:25)
[2020-04-20] MEDS: Aspirin 81 mg Enteric Coated Tablet PO SCH (08:25)
[2020-04-20] MEDS: HumuLIN 70/30 (300 UNITS/3 ML VIAL) SC SCH ×2 (08:26→21:03)
[2020-04-20] MEDS: Gabapentin 300 MG CAP PO SCH ×3 (08:26→21:03)
[2020-04-20] MEDS: Folic Acid/Vit B Comp W-C PO SCH (08:26)
--- NOTE | 2020-04-20 16:38 | PRG ---
DATE OF SERVICE: 04/20/2020 SUBJECTIVE: The patient feels well, sitting up in the bed, talk to family. He has had a right great toe and fourth toe amputated. He is feeling well. He is having no pain, fever, chills, nausea, or vomiting. OBJECTIVE: VITAL SIGNS: Show temperature is 98, pulse 82, respirations 18, O2 saturation is 92% on room air, and blood pressure is 98/47. LUNGS: Clear. CARDIAC: Regular rhythm. ABDOMEN: Soft, nontender. ASSESSMENT: 1. Cellulitis and osteomyelitis, requiring amputation of the right fourth and great toe. 2. Peripheral vascular disease, status post stent to the right superficial femoral artery and angioplasty. 3. Diabetes, type 2, controlled to goal usually with Accu-Cheks still ranging from 85 to 222. 4. Hypertension, controlled to goal. 5. End-stage renal disease, on hemodialysis. PLAN: 1. Continue IV cefepime. 2. Continue oral Keflex 500 three times a day. 3. Continue midodrine 10 twice daily since his hypotension. 4. Continue Accu-Cheks to monitor and titrate and control diabetes. Continue Humulin 70/30 30 units subcu twice daily. Job ID: [id number]
[2020-04-20] MEDS: rOPINIRole HCl 1 MG TAB PO SCH (21:03)
[2020-04-21] MEDS: Levothyroxine Sodium 25 MCG TAB PO SCH (05:41)
[2020-04-21] MEDS: Aspirin 81 mg Enteric Coated Tablet PO SCH (08:58)
[2020-04-21] MEDS: Atorvastatin Calcium 20 MG TAB PO SCH (08:58)
[2020-04-21] MEDS: Midodrine HCl 5 MG TAB PO SCH ×2 (08:58→17:48)
[2020-04-21] MEDS: Calcium Acetate 667 MG CAP PO SCH ×3 (08:58→17:48)
[2020-04-21] MEDS: Gabapentin 300 MG CAP PO SCH ×3 (08:59→20:48)
[2020-04-21] MEDS: Fluticasone Propionate Nasal Spray 16 gm Bottle NASAL SCH (08:59)
[2020-04-21] MEDS: Cephalexin 500 MG CAP PO SCH ×3 (08:59→20:48)
[2020-04-21] MEDS: HumuLIN 70/30 (300 UNITS/3 ML VIAL) SC SCH ×2 (08:59→20:53)
[2020-04-21] MEDS: Folic Acid/Vit B Comp W-C PO SCH (08:59)
[2020-04-21] MEDS: Clopidogrel Bisulfate 75 MG TAB PO SCH (08:59)
[2020-04-21] MEDS: traMADol HCl 50 MG TAB PO PRN ×2 (09:00→20:50)
--- NOTE | 2020-04-21 18:21 | PRG ---
DATE OF SERVICE: 04/21/2020 SUBJECTIVE: The patient feels well lying in the bed with no complaints of pain, nausea, vomiting, fever, chills. The patient does state that his sugar did go up yesterday because of juice on his tray. OBJECTIVE: VITAL SIGNS: Temperature 98, pulse 82, respirations 16, O2 sats 96% on room air, and blood pressure 84/41. LUNGS: Clear. CARDIAC: Regular rhythm. No gallops or murmurs. ABDOMEN: Soft and nontender. SKIN/EXTREMITIES: Bandaged right foot with a right fourth toe amputation and partial amputation of right great toe. PLAN: 1. Continue wound care with wound VAC. 2. Continue PT/OT. 3. Continue stress ulcer prophylaxis. 4. Continue Accu-Cheks to maintain and titrate and control diabetes. Job ID: [id number]
[2020-04-21] MEDS: rOPINIRole HCl 1 MG TAB PO SCH (20:48)
[2020-04-22] MEDS: Levothyroxine Sodium 25 MCG TAB PO SCH (05:57)
[2020-04-22] MEDS: Cephalexin 500 MG CAP PO SCH ×3 (08:11→20:26)
[2020-04-22] MEDS: Calcium Acetate 667 MG CAP PO SCH ×3 (08:11→17:40)
[2020-04-22] MEDS: Midodrine HCl 5 MG TAB PO SCH ×2 (08:11→17:40)
[2020-04-22] MEDS: Gabapentin 300 MG CAP PO SCH ×3 (08:12→20:26)
[2020-04-22] MEDS: Atorvastatin Calcium 20 MG TAB PO SCH (08:12)
[2020-04-22] MEDS: Clopidogrel Bisulfate 75 MG TAB PO SCH (08:12)
[2020-04-22] MEDS: Aspirin 81 mg Enteric Coated Tablet PO SCH (08:12)
[2020-04-22] MEDS: HumuLIN 70/30 (300 UNITS/3 ML VIAL) SC SCH ×2 (08:13→20:26)
[2020-04-22] MEDS: Fluticasone Propionate Nasal Spray 16 gm Bottle NASAL SCH (08:15)
[2020-04-22] MEDS: traMADol HCl 50 MG TAB PO PRN ×2 (08:15→20:25)
[2020-04-22] MEDS: Folic Acid/Vit B Comp W-C PO SCH (08:16)
[2020-04-22] MEDS: rOPINIRole HCl 1 MG TAB PO SCH (20:26)
--- NOTE | 2020-04-22 21:16 | PRG ---
DATE OF SERVICE: 04/22/2020 SUBJECTIVE: Mr. Wells is a pleasant 64-year-old -[place] male, who presented to the hospital here approximately 4 weeks ago with fever, chills, and leukocytosis. He had gangrene of the right toe and lymphedema. His cultures were negative. His antibiotics were stopped and was discharged home. He did not follow up with me, did not wear his compression stockings and returned to the hospital several days later with hypotensive increased right foot pain and sepsis. He ended up having PTCA and stent placement of the right superficial femoral artery. He underwent amputation of the fourth distal right toe and partial amputation of the first great toe. Wound VAC was applied. The patient was transferred to [facility] for physical therapy, occupational therapy, and pain management. The patient states he is doing well and getting little stronger. He states he had dialysis today and did not get therapy. He is looking forward to doing a lot of therapy tomorrow. OBJECTIVE: VITAL SIGNS: Today reveal blood pressure 101/46, pulse 85 to 86, respirations 18, O2 saturation 92% to 99% on room air, and T-max 98.4. GENERAL: This is a well-developed, well-nourished, morbidly obese black male, in no apparent distress at this time. HEENT: Reveals normocephalic and nontraumatic cranium. Pupils are equally round and reactive. Extraocular movements intact. Nose and throat are slightly dry. NECK: Supple without masses, nodes, or bruits. CHEST: Clear to auscultation. HEART: Reveals a regular rate and rhythm without murmurs, gallops, or rubs. ABDOMEN: Morbidly obese, soft, nontender without organomegaly. Normal bowel sounds noted in all 4 quadrants. No rebound or guarding is noted. : Deferred. EXTREMITIES: Reveal no clubbing, cyanosis, but chronic lymphedema. He has stasis dermatitis also present and his right foot has a wound VAC. ASSESSMENT: 1. Osteomyelitis and gangrene requiring amputation of the right fourth toe and partial amputation of the right great toe with wound VAC placement. 2. Diabetes type 2. 3. Hypertension. 4. End-stage renal disease, on hemodialysis Wednesday, Wednesday, and Wednesday. 5. Peripheral vascular disease requiring percutaneous transluminal coronary angioplasty and stent placement in the right superficial femoral. 6. Hypertension. 7. Chronic lymphedema. 8. Hyperlipidemia. 9. Peripheral neuropathy. 10. Deconditioning. 11. Pain management. PLAN: 1. Continue to monitor the patient's diabetes with Accu-Cheks before meals and at bedtime. 2. Continue dialysis on Wednesday, Wednesday, and Wednesday. 3. Continue to monitor the patient's blood pressure and adjust medications as needed. 4. Chronic lymphedema. 5. Wound VAC to the right lower extremity. 6. Physical therapy and occupational therapy. 7. Pain management. 8. DVT prophylaxis with PlexiPulse. Job ID: [id number]
[2020-04-23] MEDS: Levothyroxine Sodium 25 MCG TAB PO SCH (05:38)
[2020-04-23] MEDS: Cephalexin 500 MG CAP PO SCH ×3 (08:50→20:53)
[2020-04-23] MEDS: Aspirin 81 mg Enteric Coated Tablet PO SCH (08:50)
[2020-04-23] MEDS: Midodrine HCl 5 MG TAB PO SCH ×2 (08:50→16:34)
[2020-04-23] MEDS: HumuLIN 70/30 (300 UNITS/3 ML VIAL) SC SCH ×2 (08:51→20:51)
[2020-04-23] MEDS: Atorvastatin Calcium 20 MG TAB PO SCH (08:51)
[2020-04-23] MEDS: Calcium Acetate 667 MG CAP PO SCH ×3 (08:51→16:34)
[2020-04-23] MEDS: Folic Acid/Vit B Comp W-C PO SCH (08:52)
[2020-04-23] MEDS: Gabapentin 300 MG CAP PO SCH ×3 (08:52→20:53)
[2020-04-23] MEDS: Clopidogrel Bisulfate 75 MG TAB PO SCH (08:52)
[2020-04-23] MEDS: Fluticasone Propionate Nasal Spray 16 gm Bottle NASAL SCH (08:52)
--- NOTE | 2020-04-23 19:44 | PRG ---
DATE OF SERVICE: 04/23/2020 SUBJECTIVE: Mr. Wells is a 64-year-old white male, who presented to the hospital with fever, chills, leukocytosis, gangrene of right toe, and lymphedema. He eventually had PTCA of the right superficial artery and had amputation of the fourth distal right toe and partial amputation of the first right great toe. He had to have a wound VAC applied and now was transferred to [facility] for physical therapy, occupational therapy, and pain management. The patient states he had a good day yesterday and is actually working hard and getting much stronger. He states he is watching his food intake and trying not to get his sugars too high. OBJECTIVE: VITAL SIGNS: Today reveal blood pressure 94/42, pulse 80 to 85, respirations 18, O2 saturation 95% to 100% on room air, T-max 98.6. Accu-Cheks today reveal fasting this morning 99, before lunch 140, before supper 156. GENERAL: This is a well-developed, morbidly obese white male, in no apparent distress at this time. HEENT: Normocephalic and nontraumatic cranium. Pupils are equal, round, and reactive. Extraocular movement are intact. Nose and throat are slightly dry. NECK: Supple without masses, nodes, or bruits. CHEST: Clear to auscultation. HEART: Reveals a regular rate and rhythm without murmurs, gallops, or rubs. ABDOMEN: Soft and nontender without organomegaly. Normal bowel sounds noted. No rebound or guarding is noted. GENITOURINARY: Deferred. EXTREMITIES: Reveal no clubbing, cyanosis, or edema. The patient does have some chronic lymphedema. He has stasis dermatitis present. His right foot has a wound VAC. ASSESSMENT: 1. Osteomyelitis and gangrene requiring amputation of the right fourth toe and a partial amputation of the right great toe with wound vacuum-assisted closure placement. 2. Hypertension, stable. 3. Diabetes type 2, fairly stable. 4. End-stage renal disease, on hemodialysis Wednesday, Wednesday, and Wednesday. 5. Peripheral vascular disease requiring percutaneous transluminal coronary angioplasty and stent placement to the right superficial femoral artery. 6. Chronic lymphedema. 7. Hypertension. 8. Hyperlipidemia. 9. Peripheral neuropathy. 10. Deconditioning. 11. Generalized pain management. PLAN: 1. Continue to monitor the patient's diabetes with Accu-Cheks a.c. and at bedtime. 2. Monitor the patient's blood pressure closely and adjust medications as needed. 3. Continue dialysis Wednesday, Wednesday, and Wednesday. 4. Monitor the patient's lymphedema. 5. Wound VAC to the right lower extremity. 6. PT and OT. 7. Pain management. 8. DVT prophylaxis with PlexiPulses. Job ID: [id number]
[2020-04-23] MEDS: rOPINIRole HCl 1 MG TAB PO SCH (20:52)
[2020-04-24] MEDS: Levothyroxine Sodium 25 MCG TAB PO SCH (05:22)
[2020-04-24] MEDS: Aspirin 81 mg Enteric Coated Tablet PO SCH (08:08)
[2020-04-24] MEDS: Atorvastatin Calcium 20 MG TAB PO SCH (08:08)
[2020-04-24] MEDS: Calcium Acetate 667 MG CAP PO SCH ×3 (08:08→17:20)
[2020-04-24] MEDS: Cephalexin 500 MG CAP PO SCH ×3 (08:08→20:33)
[2020-04-24] MEDS: Midodrine HCl 5 MG TAB PO SCH ×2 (08:08→17:20)
[2020-04-24] MEDS: Clopidogrel Bisulfate 75 MG TAB PO SCH (08:08)
[2020-04-24] MEDS: Fluticasone Propionate Nasal Spray 16 gm Bottle NASAL SCH (08:09)
[2020-04-24] MEDS: Folic Acid/Vit B Comp W-C PO SCH (08:09)
[2020-04-24] MEDS: Gabapentin 300 MG CAP PO SCH ×3 (08:09→20:33)
[2020-04-24] MEDS: HumuLIN 70/30 (300 UNITS/3 ML VIAL) SC SCH ×2 (08:10→20:33)
[2020-04-24] MEDS: traMADol HCl 50 MG TAB PO PRN (17:20)
--- NOTE | 2020-04-24 20:32 | PRG ---
DATE OF SERVICE: 04/24/2020 SUBJECTIVE: Mr. Wells is a very pleasant 64-year-old black male, who presented to the hospital with fever, chills, leukocytosis, gangrene of the right toe, and lymphedema. He was transferred to [facility], where he had PTCA of the right superficial artery, amputation of the 4th distal right toe and partial amputation of the 1st right great toe. Wound VAC was applied. He was stabilized and now is transferred to [facility] for physical therapy, occupational therapy, and pain management. The patient continues to have wound VAC, which is actually pretty dry at this time. The patient states he is doing well and not having a lot of pain and actually walked with his rolling walker 230 feet today, that was after having occupational therapy. OBJECTIVE: VITAL SIGNS: Today reveal blood pressure this morning 109/51, pulse 82 to 93, respirations 18, O2 saturation 92% to 95% on room air, and T-max 99.0. GENERAL: This is a well-developed, well-nourished, obese black male, in no apparent distress at this time. HEENT: Reveals normocephalic and nontraumatic cranium. The pupils are equal, round, and reactive. Extraocular movements are intact. Nose and throat are moist. NECK: Supple without masses, nodes, or bruits. CHEST: Clear to auscultation without rales, rhonchi, or wheezes. HEART: Reveals a regular rate and rhythm without murmurs, gallops, or rubs. ABDOMEN: Soft, obese, nontender. Normal bowel sounds are noted. No rebound or guarding is noted. : Deferred. EXTREMITIES: Reveal no clubbing, cyanosis, or significant edema. The patient does have chronic lymphedema. He has stasis dermatitis. His right foot has wound VAC still applied, which is not having very much output. ASSESSMENT: 1. Osteomyelitis and gangrene, requiring amputation of the right 4th toe and partial amputation of the right great toe with wound VAC assisted closure. 2. Hypertension, stable. 3. Diabetes type 2, fairly stable with his highest sugar 179 and low was 107. 4. End-stage renal disease, on hemodialysis Wednesday, Wednesday, Wednesday. 5. Peripheral vascular disease, requiring percutaneous transluminal angioplasty and stent placement of the right superficial femoral artery. 6. Chronic lymphedema. 7. Hypertension. 8. Hyperlipidemia. 9. Peripheral neuropathy. 10. Deconditioning. 11. Generalized pain management. PLAN: 1. Continue to monitor the patient's diabetes with Accu-Cheks a.c. and at bedtime. 2. Continue monitor the patient's blood pressure closely and adjust medications as needed. 3. Continue dialysis on Wednesday, Wednesday, Wednesday. 4. Monitor the patient's lymphedema. 5. Wound VAC to the right lower extremity. 6. PT and OT. 7. Pain management. 8. DVT prophylaxis with PlexiPulses. Job ID: [id number]
[2020-04-24] MEDS: rOPINIRole HCl 1 MG TAB PO SCH (20:33)
[2020-04-25] MEDS: Levothyroxine Sodium 25 MCG TAB PO SCH (06:02)
[2020-04-25] MEDS: Calcium Acetate 667 MG CAP PO SCH ×3 (08:19→16:22)
[2020-04-25] MEDS: Midodrine HCl 5 MG TAB PO SCH ×2 (08:19→16:22)
[2020-04-25] MEDS: Aspirin 81 mg Enteric Coated Tablet PO SCH (08:20)
[2020-04-25] MEDS: Atorvastatin Calcium 20 MG TAB PO SCH (08:20)
[2020-04-25] MEDS: Fluticasone Propionate Nasal Spray 16 gm Bottle NASAL SCH (08:20)
[2020-04-25] MEDS: Cephalexin 500 MG CAP PO SCH ×3 (08:20→21:12)
[2020-04-25] MEDS: Clopidogrel Bisulfate 75 MG TAB PO SCH (08:20)
[2020-04-25] MEDS: Gabapentin 300 MG CAP PO SCH ×3 (08:21→21:12)
[2020-04-25] MEDS: Folic Acid/Vit B Comp W-C PO SCH (08:21)
[2020-04-25] MEDS: traMADol HCl 50 MG TAB PO PRN ×2 (08:23→21:12)
[2020-04-25] MEDS: HumuLIN 70/30 (300 UNITS/3 ML VIAL) SC SCH ×2 (08:26→21:14)
[2020-04-25] MEDS: rOPINIRole HCl 1 MG TAB PO SCH (21:11)
--- NOTE | 2020-04-25 21:50 | PRG ---
DATE OF SERVICE: 04/25/2020 SUBJECTIVE: Mr. Wells is a 64-year-old black male, presented to the hospital with fever, chills, leukocytosis, gangrene of the right toe, and lymphedema. He was transferred to [facility] where he had PTCA of the right superficial artery and amputation of the 4th distant right toe and partial amputation of the right 1st great toe. Wound VAC was applied to that area and he was stabilized, now he is transferred to [facility] for physical therapy and occupational therapy to increase his strength and stamina. Subjectively, the patient states he is doing well and walked to the bathroom and back with bedside assistance. He is very pleased with his accomplishments. He states he is doing well. OBJECTIVE: VITAL SIGNS: Today reveal blood pressure slightly low at 85/46, pulse 74 to 82, respirations 18, O2 saturation 92% to 95% on room air, T-max 99.1. Sugars were 101 this morning, 170 at lunch, 164 at supper. GENERAL: This is a well-developed, well-nourished, somewhat obese black male, in no apparent distress at this time. HEENT: Reveals normocephalic and nontraumatic cranium. Pupils are equal, round, and reactive. Extraocular movements are intact. Nose and throat are driver. NECK: Supple without masses, nodes, or bruits. CHEST: Clear to auscultation. No rales, rhonchi, or wheezes are heard. HEART: Reveals regular rate and rhythm without murmurs, gallops, or rubs. ABDOMEN: Soft and nontender without organomegaly. Normal bowel sounds are noted. No rebound or guarding is noted. : Deferred. EXTREMITIES: Reveal no clubbing, cyanosis, or edema. The patient does have a wound VAC on his right ankle and great toe. He does have chronic lymphedema. Today, the wound VAC and Bg were wrapped had to be loosened. ASSESSMENT: 1. Osteomyelitis and gangrene requiring amputation of the right 4th toe and partial amputation of the right great toe with wound VAC assisted closure. 2. Hypertension, stable. 3. Diabetes type 2, stable. 4. End-stage renal disease, on hemodialysis Wednesday, Wednesday, Wednesday. 5. Peripheral vascular disease requiring percutaneous transluminal angioplasty and stent placement of the right superficial femoral artery. 6. Chronic lymphedema. 7. Hyperlipidemia. 8. Peripheral neuropathy. 9. Deconditioning. 10. Generalized pain management. Job ID: [id number]
[2020-04-26] MEDS: Levothyroxine Sodium 25 MCG TAB PO SCH (05:09)
[2020-04-26] MEDS: Cephalexin 500 MG CAP PO SCH ×3 (08:07→20:48)
[2020-04-26] MEDS: Fluticasone Propionate Nasal Spray 16 gm Bottle NASAL SCH (08:07)
[2020-04-26] MEDS: Calcium Acetate 667 MG CAP PO SCH ×3 (08:07→18:01)
[2020-04-26] MEDS: Midodrine HCl 5 MG TAB PO SCH ×2 (08:08→18:01)
[2020-04-26] MEDS: Gabapentin 300 MG CAP PO SCH ×3 (08:08→20:48)
[2020-04-26] MEDS: Atorvastatin Calcium 20 MG TAB PO SCH (08:08)
[2020-04-26] MEDS: Aspirin 81 mg Enteric Coated Tablet PO SCH (08:08)
[2020-04-26] MEDS: Clopidogrel Bisulfate 75 MG TAB PO SCH (08:08)
[2020-04-26] MEDS: Folic Acid/Vit B Comp W-C PO SCH (08:08)
[2020-04-26] MEDS: HumuLIN 70/30 (300 UNITS/3 ML VIAL) SC SCH ×2 (08:09→20:51)
--- NOTE | 2020-04-26 08:11 | PRG ---
DATE OF SERVICE: 04/26/2020 SUBJECTIVE: Mr. Wells is a well-developed 64-year-old black male, presented to the hospital with fever, chills, leukocytosis, gangrene of the right toe, and lymphedema. He was stabilized and transferred to [facility] after having a PTCA of the right superficial artery, amputation of the 4th distal right toe and partial amputation of the right 1st great toe. Wound VAC was applied to that area and stabilized, now he is transferred to [facility] for PT, OT and to increase his strength and stamina. Today, the patient states he is doing well and slept well last night. He is getting ready to go to dialysis this morning. He has no concerns or complaints. OBJECTIVE: VITAL SIGNS: Today reveal blood pressure this morning is pending. Blood pressure last night was 102/53, pulse 70 to 74, respirations 18 to 20, O2 saturation 94% to 95% on room air. GENERAL: This is a well-developed, well-nourished, morbidly obese white male, in no apparent distress at this time. HEENT: Reveals normocephalic and nontraumatic cranium. Pupils are equal, round, and reactive. Extraocular movements are intact. Nose and throat are slightly dry. NECK: Supple without masses, nodes, or bruits. CHEST: Clear to auscultation. No rales, rhonchi, wheezes, or cough is noted. HEART: Reveals a regular rate and rhythm without murmurs, gallops, or rubs. ABDOMEN: Morbidly obese, soft and nontender. Normal bowel sounds are noted. No rebound or guarding is noted. : Deferred. EXTREMITIES: Reveal no clubbing, cyanosis, or edema. The patient has wound VAC on the right ankle and great toe. He has a splint on that area. He does have chronic lymphedema. Wound VAC is still not removing much. ASSESSMENT: 1. Osteomyelitis and gangrene requiring amputation of the right fourth toe and partial amputation of the right great toe with wound VAC assisted closure. 2. Hypertension, stable. 3. Diabetes type 2, stable. 4. End-stage renal disease, on hemodialysis Wednesday, Wednesday, Wednesday. . 5. Peripheral vascular disease requiring percutaneous transluminal angioplasty and stent placement of the right superficial femoral artery. 6. Chronic lymphedema. 7. Hyperlipidemia. 8. Peripheral neuropathy. 9. Deconditioning. 10. Generalized pain management. Job ID: [id number]
[2020-04-26] MEDS: rOPINIRole HCl 1 MG TAB PO SCH (20:48)
[2020-04-26] MEDS: traMADol HCl 50 MG TAB PO PRN (20:49)
[2020-04-27] MEDS: Levothyroxine Sodium 25 MCG TAB PO SCH (05:27)
[2020-04-27] MEDS: traMADol HCl 50 MG TAB PO PRN (05:29)
[2020-04-27] MEDS: HumuLIN 70/30 (300 UNITS/3 ML VIAL) SC SCH ×2 (09:42→20:17)
[2020-04-27] MEDS: Fluticasone Propionate Nasal Spray 16 gm Bottle NASAL SCH (09:43)
[2020-04-27] MEDS: Cephalexin 500 MG CAP PO SCH ×3 (09:44→20:16)
[2020-04-27] MEDS: Calcium Acetate 667 MG CAP PO SCH ×3 (09:44→15:51)
[2020-04-27] MEDS: Gabapentin 300 MG CAP PO SCH ×3 (09:44→20:16)
[2020-04-27] MEDS: Midodrine HCl 5 MG TAB PO SCH ×2 (09:44→15:51)
[2020-04-27] MEDS: Aspirin 81 mg Enteric Coated Tablet PO SCH (09:45)
[2020-04-27] MEDS: Clopidogrel Bisulfate 75 MG TAB PO SCH (09:45)
[2020-04-27] MEDS: Atorvastatin Calcium 20 MG TAB PO SCH (09:45)
[2020-04-27] MEDS: Folic Acid/Vit B Comp W-C PO SCH (09:45)
--- NOTE | 2020-04-27 17:12 | PRG ---
DATE OF SERVICE: 04/27/2020 SUBJECTIVE: Mr. Wells is up in his chair. He denies any complaints. He is tolerating his wound VAC. No fever or chills. OBJECTIVE: VITAL SIGNS: He is afebrile, heart rate is 86, respirations are 20, oxygen saturation 99%, and blood pressure 121/49. CARDIOVASCULAR SYSTEM: S1 and S2 plus. RESPIRATORY SYSTEM: Normal vesicular breath sounds. ABDOMEN: Soft and nontender. Bowel sounds heard in all quadrants. Obese. EXTREMITIES: Without cyanosis or clubbing. Wound VAC in place. CENTRAL NERVOUS SYSTEM: Improving deconditioning. LABORATORY DATA: Blood sugars are 139, 262, 133, and 200. IMPRESSION: 1. Resolving cellulitis and osteomyelitis status post complete amputation of the right 4th toe and partial amputation of the right great toe. 2. Peripheral vascular disease, requiring percutaneous transluminal coronary angioplasty and stent placement. 3. Diabetes mellitus, type 2. 4. Hypertension. 5. Dyslipidemia. 6. End-stage renal disease, on hemodialysis. 7. Diabetic peripheral neuropathy. PLAN: 1. Continue current medications. 2. Nutritional support with 1800-calorie, heart healthy, ADA, renal diet. 3. Accu-Cheks with sliding scale coverage. 4. Hemodialysis per Nephrology. 5. Wound VAC. 6. DVT and stress ulcer prophylaxis. 7. Decubitus precautions. 8. Routine laboratory values. 9. He should be completing his Keflex soon, will review discharge med instructions. Job ID: [id number]
[2020-04-27] MEDS: rOPINIRole HCl 1 MG TAB PO SCH (20:16)
[2020-04-28] MEDS: Levothyroxine Sodium 25 MCG TAB PO SCH (05:31)
[2020-04-28] MEDS: HumuLIN 70/30 (300 UNITS/3 ML VIAL) SC SCH ×2 (09:17→20:29)
[2020-04-28] MEDS: Fluticasone Propionate Nasal Spray 16 gm Bottle NASAL SCH (09:17)
[2020-04-28] MEDS: Midodrine HCl 5 MG TAB PO SCH ×2 (09:18→16:44)
[2020-04-28] MEDS: Aspirin 81 mg Enteric Coated Tablet PO SCH (09:18)
[2020-04-28] MEDS: Calcium Acetate 667 MG CAP PO SCH ×3 (09:19→16:44)
[2020-04-28] MEDS: Cephalexin 500 MG CAP PO SCH ×2 (09:19→16:44)
[2020-04-28] MEDS: Clopidogrel Bisulfate 75 MG TAB PO SCH (09:19)
[2020-04-28] MEDS: Atorvastatin Calcium 20 MG TAB PO SCH (09:19)
[2020-04-28] MEDS: Gabapentin 300 MG CAP PO SCH ×3 (09:19→20:28)
[2020-04-28] MEDS: Folic Acid/Vit B Comp W-C PO SCH (09:19)
--- NOTE | 2020-04-28 12:14 | PRG ---
DATE OF SERVICE: 04/28/2020 SUBJECTIVE: Mr. Wells is up in his chair. He denies any complaints. He is not happy getting his blood sugars checked 4 times a day and will reduce it to b.i.d. His blood sugars have been stable. His Keflex should be stopped today or tomorrow. We will review discharge med list for directions. OBJECTIVE: VITAL SIGNS: He is afebrile, heart rate 87, respirations 18, oxygen saturation 99% on room air, and blood pressure 91/38. CARDIOVASCULAR SYSTEM: S1 and S2 plus. RESPIRATORY SYSTEM: Normal vesicular breath sounds. ABDOMEN: Soft, obese, and nontender. Bowel sounds heard in all quadrants. EXTREMITIES: Without cyanosis or clubbing. Chronic edema with stasis dermatitis. Wound VAC in place to the right foot. CENTRAL NERVOUS SYSTEM: Generalized weakness, otherwise nonfocal. LABORATORY DATA: His blood sugars are 133, 200, 164, 223, and 134. IMPRESSION: 1. Right foot osteomyelitis, requiring partial amputation of the great toe and complete amputation of the right 4th toe, now on wound VAC. 2. Peripheral vascular disease status post percutaneous transluminal coronary angioplasty stent to superficial femoral artery on the right. 3. Diabetes mellitus, type 2. 4. Hypertension. 5. Dyslipidemia. 6. End-stage renal disease, on hemodialysis. 7. Diabetic peripheral neuropathy. PLAN: 1. Continue current medications. 2. Reduce Accu-Cheks to b.i.d. 3. 1800-calorie, heart healthy, ADA, renal diet. 4. Monitor blood pressure and adjust medications as needed. 5. Check for stop date on Keflex. 6. Wound VAC care. 7. Continue PT. 8. DVT and stress ulcer prophylaxis. 9. Continue hemodialysis. 10. Dr. Villalba back [facility]. Job ID: [id number]
[2020-04-28] MEDS: rOPINIRole HCl 1 MG TAB PO SCH (20:28)
[2020-04-29] MEDS: Levothyroxine Sodium 25 MCG TAB PO SCH (05:18)
[2020-04-29] MEDS: Fluticasone Propionate Nasal Spray 16 gm Bottle NASAL SCH (08:14)
[2020-04-29] MEDS: Calcium Acetate 667 MG CAP PO SCH ×3 (08:16→17:24)
[2020-04-29] MEDS: Midodrine HCl 5 MG TAB PO SCH ×2 (08:16→17:23)
[2020-04-29] MEDS: Gabapentin 300 MG CAP PO SCH ×3 (08:16→20:38)
[2020-04-29] MEDS: HumuLIN 70/30 (300 UNITS/3 ML VIAL) SC SCH ×2 (08:16→20:37)
[2020-04-29] MEDS: Folic Acid/Vit B Comp W-C PO SCH (08:16)
[2020-04-29] MEDS: Atorvastatin Calcium 20 MG TAB PO SCH (08:16)
[2020-04-29] MEDS: Aspirin 81 mg Enteric Coated Tablet PO SCH (08:16)
[2020-04-29] MEDS: Clopidogrel Bisulfate 75 MG TAB PO SCH (08:16)
--- NOTE | 2020-04-29 13:39 | PRG ---
DATE OF SERVICE: 04/29/2020 SUBJECTIVE: Mr. Wells is a well-developed, well-nourished, morbidly obese 64-year-old black male. He presented to the hospital with fever, chills, leukocytosis, and gangrene in the right toe. He also had significant lymphedema. He was stabilized and transferred to [facility] after having PTCA of the right superior artery, amputation of the fourth distal right toe, and partial amputation in the distal right great toe. Wound VAC was applied to the area down there. He was stabilized and transferred to [facility] for PT, OT, and to increase his strength and stamina. The patient is seen this morning right before he went to dialysis because he goes to dialysis on Wednesday, Wednesday, Wednesday. He is doing well and states he had a great weekend. He has no concerns or complaints at this time. OBJECTIVE: VITAL SIGNS: Reveal blood pressure 95/42, pulse 89, respirations 18, O2 saturations 93% to 95% on room air, T-max 98.7. GENERAL: On physical exam, this is a well-developed, well-nourished, morbidly obese black male, in no apparent distress at this time. HEENT: Normocephalic and nontraumatic cranium. Pupils equally round and reactive. Extraocular muscles are intact. Nose and throat are slightly dry. NECK: Supple without masses, nodes, or bruits. CHEST: Clear to auscultation. No rales, no rhonchi, no wheezes, and no cough is noted. HEART: Reveals a regular rate and rhythm without murmurs, gallops, or rubs. ABDOMEN: Soft and nontender without organomegaly. Normal bowel sounds are noted. No rebound or guarding is noted. Abdomen is morbidly obese. GENITOURINARY: Deferred. EXTREMITIES: Reveal no clubbing, cyanosis, or edema. The patient has a wound VAC on his right ankle and great toe, and is also splinted. Does have chronic lymphedema. Wound VAC is still not removing very much liquid. ASSESSMENT: 1. Osteomyelitis and gangrene requiring amputation of the right fourth toe and partial amputation of the distal right great toe with wound VAC assisted closure. 2. Hypertension, stable. 3. Type 2 diabetes, stable. 4. End-stage renal disease, on dialysis on Wednesday, Wednesday, Wednesday. 5. Peripheral vascular disease requiring percutaneous transluminal angioplasty and stent placement of the right superior femoral artery. 6. Chronic lymphedema. 7. Hyperlipidemia. 8. Peripheral neuropathy. 9. Deconditioning. 10. Generalized pain management. PLAN: 1. Continue to monitor the patient's blood pressure closely and adjust medications as needed. 2. Continue to monitor the patient's diabetes with Accu-Cheks a.c. and at bedtime. 3. The patient is off to dialysis this morning. 4. Continue to follow the patient's chronic lymphedema. 5. Continue with physical therapy and occupational therapy. 6. Stress ulcer prophylaxis. 7. Decubitus precautions. 8. Generalized pain management. Job ID: [id number]
[2020-04-29] MEDS: traMADol HCl 50 MG TAB PO PRN (17:26)
[2020-04-29] MEDS: rOPINIRole HCl 1 MG TAB PO SCH (20:38)
[2020-04-30] MEDS: Levothyroxine Sodium 25 MCG TAB PO SCH (05:10)
[2020-04-30] MEDS: traMADol HCl 50 MG TAB PO PRN (05:12)
[2020-04-30] MEDS: HumuLIN 70/30 (300 UNITS/3 ML VIAL) SC SCH ×2 (08:59→21:01)
[2020-04-30] MEDS: Aspirin 81 mg Enteric Coated Tablet PO SCH (09:00)
[2020-04-30] MEDS: Clopidogrel Bisulfate 75 MG TAB PO SCH (09:00)
[2020-04-30] MEDS: Folic Acid/Vit B Comp W-C PO SCH (09:00)
[2020-04-30] MEDS: Fluticasone Propionate Nasal Spray 16 gm Bottle NASAL SCH (09:00)
[2020-04-30] MEDS: Atorvastatin Calcium 20 MG TAB PO SCH (09:00)
[2020-04-30] MEDS: Gabapentin 300 MG CAP PO SCH ×3 (09:00→21:02)
[2020-04-30] MEDS: Midodrine HCl 5 MG TAB PO SCH ×2 (09:00→17:38)
[2020-04-30] MEDS: Calcium Acetate 667 MG CAP PO SCH ×3 (09:00→17:38)
--- NOTE | 2020-04-30 20:37 | PRG ---
DATE OF SERVICE: 04/30/2020 SUBJECTIVE: Mr. Wells is a well-developed, well-nourished, morbidly obese, 64-year-old black male. He presented to the hospital with fever, chills, leukocytosis, and gangrene of the right toe. He had significant lymphedema. Eventually, he was stabilized and transferred from [facility] after having a PTCA of the right superior artery amputation of the fourth distal toe and partial amputation of the distal right toe. Wound VAC was applied in the area down there. He was stabilized and transferred to [facility] for PT, OT and to increase his strength and stamina. Therapy did call me last evening and told me that they felt that his wound VAC was not working very well and looked like he had terrible circulation. When I talked to the patient this morning, he states that Dr. Babcock was the physician who put in his femoral artery stent and we would most likely need to talk with him about that. Otherwise, he states he is doing fairly well and he thought his foot was doing better. OBJECTIVE: VITAL SIGNS: Today reveal blood pressure this morning 96/49, pulse 69 to 79, respirations 18 to 20, O2 saturation 92% to 98% on room air, T-max 98.2. GENERAL: This is a well-developed, well-nourished, very pleasant, morbidly obese male in no apparent distress at this time. HEENT: Reveals normocephalic and nontraumatic cranium. The pupils are equally round and reactive. Extraocular movements are intact. Nose and throat are slightly dry. NECK: Supple without masses, nodes, or bruits. CHEST: Clear to auscultation. No rales, rhonchi, wheezes, or cough is noted. HEART: Reveals a regular rate and rhythm without murmurs, gallops, or rubs. ABDOMEN: Soft and nontender without organomegaly. Normal bowel sounds are noted in all 4 quadrants. No rebound or guarding is noted. Abdomen is morbidly obese. GENITOURINARY: Deferred. EXTREMITIES: Reveal no clubbing, cyanosis, or edema. Wound VAC continues to not have a lot of drainage. The patient does have chronic lymphedema. Wound VAC is still not removing very much liquid. ASSESSMENT: 1. Gangrene requiring amputation of the right fourth toe and partial amputation of the distal right great toe with wound vacuum-assisted closure. 2. Hypertension, stable. 3. Diabetes type 2, which is stable. 4. End-stage renal disease, on dialysis Wednesday, Wednesday, and Wednesday. 5. Peripheral vascular disease requiring percutaneous transluminal angioplasty and stent placement in the right superior femoral artery. 6. Chronic lymphedema. 7. Hyperlipidemia. 8. Peripheral neuropathy. 9. Deconditioning. 10. Generalized pain management. PLAN: 1. Continue to monitor the patient's blood pressure closely and adjust medications. 2. Contact Dr. Babcock about the patient's poor circulation. 3. Continue to monitor the patient's diabetes with Accu-Cheks a.c. and at bedtime. 4. The patient was seen this morning and he states he had a good dialysis yesterday. 5. Continue to follow the patient's chronic lymphedema. 6. Continue with physical therapy and occupational therapy. 7. Stress ulcer prophylaxis. 8. Decubitus precautions. 9. Generalized pain management. Job ID: [id number]
[2020-04-30] MEDS: rOPINIRole HCl 1 MG TAB PO SCH (21:02)
[2020-05-01] MEDS: Levothyroxine Sodium 25 MCG TAB PO SCH (05:33)
--- NOTE | 2020-05-01 07:47 | PRG ---
DATE OF SERVICE: 05/01/2020 SUBJECTIVE: Mr. Wells is a well-developed, well-nourished, somewhat obese, 64-year-old black male. He presented to the hospital with leukocytosis and gangrene of the right toe and symptoms of fever and chills. He always has significant lymphedema. He was seen and evaluated at [place]. He had his right superior artery occluded, had PTCA of that. He had amputation of the fourth distal toe and partial amputation of distant right great toe. Wound VAC was applied down there. He was stabilized and transferred to [facility] for PT, OT, and to increase his strength and stamina. I did talk with PT and they felt that his wound VAC was not working well, and he had poor circulation. We will discuss with Dr. Babcock, what the other options are. Otherwise doing well, and he thinks his foot is doing better because does not hurt. OBJECTIVE: VITAL SIGNS: Today reveal blood pressure not taken yet today or documented in the chart, but last night while he is resting is 96/49, pulse 79 to 69, respirations 18 to 20, O2 saturation 92% to 98% on room air. GENERAL: This is a well-developed, well-nourished, obese black male, in no apparent distress at this time. HEENT: Normocephalic and nontraumatic cranium. Pupils are equally round and reactive. Extraocular movements are intact. Nose and throat are clear. NECK: Supple without masses, nodes, or bruits. CHEST: Clear to auscultation. No rales, rhonchi, or wheezes are noted. No cough is noted. HEART: Regular rate and rhythm without murmurs, gallops, or rubs. ABDOMEN: Obese, soft, and nontender. Normal bowel sounds are noted in all 4 quadrants. No rebound or guarding is noted. GENITOURINARY: Deferred. EXTREMITIES: No clubbing, cyanosis, or edema. Wound VAC continues on the right distal ankle. No significant drainage is noted. ASSESSMENT: 1. Gangrene, requiring amputation of right fourth toe and partial amputation of the right distal great toe with wound assisted closure. 2. Hypertension, which is stable. 3. Diabetes, type 2. 4. End-stage renal disease, on dialysis Wednesday, Wednesday, Wednesday. 5. Peripheral vascular disease, requiring percutaneous transluminal angioplasty and stent placement of the right superior femoral artery. 6. Chronic lymphedema. 7. Hyperlipidemia. 8. Peripheral neuropathy. 9. Deconditioning. 10. Generalized pain management. PLAN: 1. Continue to follow the patient's blood pressure, but usually it is low after he has dialysis. 2. Contact Dr. Babcock about the patient's lower extremity circulation. 3. Continue to monitor the patient's diabetes with Accu-Cheks a.c. and at bedtime. 4. The patient had dialysis yesterday. 5. Continue to monitor the patient's chronic lymphedema. 6. Continue physical therapy and occupational therapy. 7. Stress ulcer prophylaxis. 8. Decubitus precautions. 9. Generalized pain management. Job ID: [id number]
[2020-05-01] MEDS: Clopidogrel Bisulfate 75 MG TAB PO SCH (08:16)
[2020-05-01] MEDS: Gabapentin 300 MG CAP PO SCH ×3 (08:16→20:50)
[2020-05-01] MEDS: Aspirin 81 mg Enteric Coated Tablet PO SCH (08:16)
[2020-05-01] MEDS: Fluticasone Propionate Nasal Spray 16 gm Bottle NASAL SCH (08:16)
[2020-05-01] MEDS: Midodrine HCl 5 MG TAB PO SCH ×2 (08:16→17:59)
[2020-05-01] MEDS: Atorvastatin Calcium 20 MG TAB PO SCH (08:16)
[2020-05-01] MEDS: Calcium Acetate 667 MG CAP PO SCH ×3 (08:17→17:58)
[2020-05-01] MEDS: Folic Acid/Vit B Comp W-C PO SCH (08:17)
[2020-05-01] MEDS: HumuLIN 70/30 (300 UNITS/3 ML VIAL) SC SCH ×2 (09:43→20:51)
[2020-05-01] MEDS: rOPINIRole HCl 1 MG TAB PO SCH (20:50)
[2020-05-02] MEDS: Levothyroxine Sodium 25 MCG TAB PO SCH (05:05)
[2020-05-02] MEDS: Clopidogrel Bisulfate 75 MG TAB PO SCH (09:01)
[2020-05-02] MEDS: Aspirin 81 mg Enteric Coated Tablet PO SCH (09:01)
[2020-05-02] MEDS: Folic Acid/Vit B Comp W-C PO SCH (09:01)
[2020-05-02] MEDS: Midodrine HCl 5 MG TAB PO SCH ×2 (09:01→17:24)
[2020-05-02] MEDS: Atorvastatin Calcium 20 MG TAB PO SCH (09:01)
[2020-05-02] MEDS: Calcium Acetate 667 MG CAP PO SCH ×3 (09:01→17:24)
[2020-05-02] MEDS: Gabapentin 300 MG CAP PO SCH ×3 (09:02→21:31)
[2020-05-02] MEDS: HumuLIN 70/30 (300 UNITS/3 ML VIAL) SC SCH ×3 (09:02→22:45)
[2020-05-02] MEDS: Fluticasone Propionate Nasal Spray 16 gm Bottle NASAL SCH (09:02)
--- NOTE | 2020-05-02 19:54 | PRG ---
DATE OF SERVICE: 05/02/2020 SUBJECTIVE: Mr. Wells is a 64-year-old well-nourished, well-developed, black male, who presented to the hospital here with leukocytosis and gangrene in the right toe. He had symptomatology of fever and chills and significant lymphedema. He was evaluated at [facility] and found that his right superior artery had occluded. He had PTCA done by Dr. Babcock. He also had amputation of the fourth toe and partial amputation of the distal right great toe by it network engineer, Shwetha Fisher. Wound VAC was applied and the patient was stabilized and transferred to [facility] for PT/OT to increase his strength and stamina. The patient's wound is not getting better, actually it seems to be getting worse and his circulation seems terrible. We did contact Dr. Fisher's office, and he is going to be seen again by Dr. Babcock and Dr. Fisher on Wednesday. OBJECTIVE: VITAL SIGNS: Today reveal blood pressure 113/43, pulse 80, respirations 18, O2 saturation 95% on room air, T-max 98.8. GENERAL: This is a well-developed, obese black male, in no apparent distress at this time. HEENT: Normocephalic and nontraumatic cranium. Pupils are equally round and reactive. Extraocular movements are intact. Nose and throat are slightly dry, but clear. NECK: Supple without masses, nodes, or bruits. CHEST: Clear to auscultation. No rales, rhonchi, wheezes, or cough is heard. HEART: Reveals a regular rate and rhythm. ABDOMEN: Obese, soft, nontender without organomegaly and normal bowel sounds are noted in all 4 quadrants. No rebound or guarding is noted. : Deferred. EXTREMITIES: Reveal no clubbing or cyanosis with lymphedema bilaterally. Wound VAC has been removed and reevaluated at this time. No significant drainage is noted. LABORATORY DATA: Today reveal his sugars fasting this morning was 213, before lunch is not recorded, before supper 211. Fasting yesterday morning was 156, before supper 180. ASSESSMENT: 1. 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 2. Severe peripheral vascular disease with poor healing of that wound. 3. Hypertension, stable. 4. Diabetes, stable. 5. End-stage renal disease, on dialysis Wednesday, Wednesday, and Wednesday. 6. Peripheral vascular disease requiring percutaneous luminal angioplasty and stent placement of the right superior femoral artery by Dr. Babcock. 7. Chronic lymphedema. 8. Hyperlipidemia. 9. Peripheral neuropathy. 10. Deconditioning. 11. Generalized management. PLAN: 1. Continue to follow the patient's blood pressure closely and usually it is very low after dialysis. 2. Continue to monitor the patient's diabetes with Accu-Cheks a.c. and at bedtime. 3. Dialysis on Wednesday, Wednesday, and Wednesday. 4. Continue to monitor the patient's chronic lymphedema. 5. Continue physical therapy and occupational therapy. 6. Stress ulcer prophylaxis. 7. Decubitus precautions. 8. Generalized pain management. 9. Evaluation next Wednesday by the surgeons. Job ID: [id number]
[2020-05-02] MEDS: rOPINIRole HCl 1 MG TAB PO SCH (21:31)
[2020-05-02 21:49] LABS: #Basophils 0.1 thou/uL (0.0-0.2); #Eosinphils 0.3 thou/uL (0.0-0.7); #Monocytes 0.9 thou/uL (0.11-0.59); #Neutrophils 9.6 thou/uL (1.40-6.50); %Basophils 0.6 % (0.0-1.0); %Eosinophils 2.5 % (0.0-10.0); %Lymphocytes 15.8 % (21.0-51.0); %Monocytes 6.7 % (0.0-10.0); %Neutrophils 74.4 % (42.0-75.0); Hemoglobin 8.8 g/dL (14.0-18.0); Mean Corpuscular HGB CONC 30.5 g/dL (32.0-36.0); Mean Corpuscular Hemoglobin 27.1 pg (27.0-31.0); Mean Corpuscular Volume 88.8 fL (78.0-98.0); Mean Platelet Volume 6.9 fL (7.4-10.4); Platelet Count 210 thou/uL (130-400); RBC Distribution Width 15.2 % (11.5-14.5); Red Blood Cell (RBC) Count 3.24 mill/uL (4.70-6.10); White Blood Cell (WBC) Count 12.9 thou/uL (4.8-10.8)
[2020-05-02 22:06] LABS: Lactic Acid 1.6 mmol/L (0.5-2.2)
[2020-05-02 22:10] LABS: ALT (SGPT) 10 U/L (8-55); AST (SGOT) 14 U/L (5-34); Albumin 3.4 g/dL (3.4-4.8); Alkaline Phosphatase 91 U/L (40-110); Anion Gap 17 mmol/L (10-20); BUN (Urea Nitrogen) 46 mg/dL (8.4-25.7); Bilirubin, Total 0.3 mg/dL (0.2-1.2); Calc. Creatinine Clearance 24 mL/min (70-130); Calcium 9.6 mg/dL (7.8-10.44); Carbon Dioxide 29 mmol/L (23-31); Chloride 93 mmol/L (98-107); Estimated GFR-MDRD 9; Globulin 4.4 g/dL (2.4-3.5); Glucose 214 mg/dL (80-115); Potassium 3.8 mmol/L (3.5-5.1); Protein, Total 7.8 g/dL (5.8-8.1); Sodium 135 mmol/L (136-145)
--- NOTE | 2020-05-02 22:18 | CT ---
CT HEAD WITHOUT IV CONTRAST COMPARISON: 05/03/2018 HISTORY: Aphasia, unresponsive. TECHNIQUE: Axial CT imaging at 5 mm intervals from vertex through skull base without contrast FINDINGS: There is decreased attenuation in the periventricular white matter which is nonspecific but likely re flective of chronic small vessel ischemic changes. Remote lacunar infarction is again seen in the left thalamus and right caudate head. Low-density focus inferior bibiana is also again seen likely relat ed to remote lacunar infarction. There is mild cerebral and cerebellar volume loss. The ventricular system is normal in size, shape, a nd position for the degree of sulcal atrophy. There is no evidence of an acute infarction, hemorrhage, mass effect, or midline shift. Visualized paranasal sinuses are clear. Osseous structures appear intact. CT head is stable compared to prior exam. IMPRESSION: 1. No acute intracranial abnormality demonstrated. 2. Stable chronic findings.
[2020-05-03] MEDS: Levothyroxine Sodium 25 MCG TAB PO SCH (05:19)
--- NOTE | 2020-05-03 07:38 | PRG ---
DATE OF SERVICE: 05/03/2020 SUBJECTIVE: Mr. Wells is a pleasant 64-year-old, somewhat obese, well-developed black male, who presented to the hospital here with an episode with gangrene of his right great toe, leukocytosis, fever, chills, and lymphedema. He was transferred to [facility] in [place] and found to have a right superior artery occlusion. He had PTCA done by Dr. Babcock. He also had an amputation of the right 4th toe and partial amputation of the distal right great toe by collections officer, Shwteha Fisher. Wound VAC was applied, and the patient was stabilized and transferred to [facility] for PT, OT and to increase his strength and stamina. While he has been here, he has not healed very well. He has been sent back and he was scheduled for Dr. Fisher to re-evaluate on Wednesday and possible revascularization versus amputation. Last night, the patient had an episode where he was unresponsive. He could not talk. He had slurred speech. He states he could not open his eyes. He was brought emergently to the ER where the CT scan was done and the labs were done. CT without contrast was unchanged, and he gradually began to wake up. All of his vital signs were normal. His sugars were in the low 200s and most likely had a TIA. This morning, the patient states he is feeling better. He remembers what happen and could hear people, but he could not respond, move, or open his eyes. OBJECTIVE: VITAL SIGNS: This morning reveal, blood pressure pending this morning, but last night at 2000 hours was 109/55, pulse 97, respirations 20, O2 saturation is 95% to 97% on room air, and T-max 98.8. GENERAL: This morning, this is a well-developed, well-nourished, oriented to person and place, and time, and situation, black male back to his normal baseline. He responds well and knows exactly what happened. HEENT: Reveals normocephalic and nontraumatic cranium. Pupils are equally round and reactive. Extraocular movements are intact. Nose and throat are dry, but clear. NECK: Supple without masses, nodes, or bruits. CHEST: Clear to auscultation. No rales, no rhonchi, no wheezes, and no cough is heard. HEART: Reveals a regular rate and rhythm. ABDOMEN: Reveals obese, nontender. Normal bowel sounds in all 4 quadrants. No rebound or guarding was noted. No CVA tenderness was noted. GENITOURINARY: Deferred. EXTREMITIES: Reveal no clubbing or cyanosis, but lymphedema bilaterally. Wound VAC has been removed from his right leg. No significant drainage was noted through his dressings. LABORATORY DATA: Labs last night revealed a white count of 12,900, hemoglobin 8.8, and hematocrit 28.8. Lactic acid 1.6. Sodium 135, potassium 3.8, BUN 46, creatinine 6.52, but the patient is on dialysis Wednesday, Wednesday, Wednesday. ASSESSMENT: 1. Unresponsive episode last night, evaluated, most likely transient ischemic attack back to his normal baseline this morning. 2. Gangrene, requiring amputations of right 4th toe and partial amputation of the distal right great toe with wound assisted wound VAC now off. 3. Severe peripheral vascular disease with poor healing of the wound. 4. Hypertension. 5. Diabetes, stable. 6. End-stage renal disease, on dialysis Wednesday, Wednesday, Wednesday. 7. Recent percutaneous luminal angioplasty and stent placement of the right superior femoral artery by Dr. Babcock. 8. Chronic lymphedema. 9. Hyperlipidemia. 10. Peripheral neuropathy. 11. Deconditioning. 12. Generalized weakness. PLAN: 1. We will continue to follow the patient's blood pressure closely and noted that it is typically low and he is on medications to keep it up after dialysis. 2. Continue to monitor the patient's diabetes with Accu-Cheks a.c. and at bedtime. 3. Dialysis Wednesday, Wednesday, Wednesday, and he will have it this morning. 4. Continue to monitor the patient's chronic lymphedema. 5. Monitor the patient's mental status for further decompensation. 6. Monitor the patient's chronic lymphedema. 7. Continue PT and OT. 8. Stress ulcer prophylaxis. 9. Decubitus precautions. 10. Generalized pain management. 11. Evaluation next Wednesday by Dr. Fisher, collections officer and Dr. Babcock, his oral therapist. 12. Dr. Maycol Zapata is on-call this . Job ID: [id number]
[2020-05-03] MEDS: Gabapentin 300 MG CAP PO SCH ×3 (07:53→21:06)
[2020-05-03] MEDS: Calcium Acetate 667 MG CAP PO SCH ×3 (07:53→17:09)
[2020-05-03] MEDS: Midodrine HCl 5 MG TAB PO SCH ×2 (07:53→17:09)
[2020-05-03] MEDS: Folic Acid/Vit B Comp W-C PO SCH (07:54)
[2020-05-03] MEDS: Atorvastatin Calcium 20 MG TAB PO SCH (07:54)
[2020-05-03] MEDS: Clopidogrel Bisulfate 75 MG TAB PO SCH (07:54)
[2020-05-03] MEDS: HumuLIN 70/30 (300 UNITS/3 ML VIAL) SC SCH ×2 (07:56→21:09)
[2020-05-03] MEDS: Fluticasone Propionate Nasal Spray 16 gm Bottle NASAL SCH (07:57)
[2020-05-03] MEDS: Aspirin 81 mg Enteric Coated Tablet PO SCH (08:05)
[2020-05-03] MEDS: rOPINIRole HCl 1 MG TAB PO SCH (21:06)
[2020-05-04] MEDS: Levothyroxine Sodium 25 MCG TAB PO SCH (05:09)
[2020-05-04] MEDS: Calcium Acetate 667 MG CAP PO SCH ×3 (09:10→16:00)
[2020-05-04] MEDS: Midodrine HCl 5 MG TAB PO SCH ×2 (09:10→16:00)
[2020-05-04] MEDS: Aspirin 81 mg Enteric Coated Tablet PO SCH (09:11)
[2020-05-04] MEDS: Atorvastatin Calcium 20 MG TAB PO SCH (09:11)
[2020-05-04] MEDS: Clopidogrel Bisulfate 75 MG TAB PO SCH (09:11)
[2020-05-04] MEDS: Gabapentin 300 MG CAP PO SCH ×3 (09:11→21:36)
[2020-05-04] MEDS: Fluticasone Propionate Nasal Spray 16 gm Bottle NASAL SCH (09:12)
[2020-05-04] MEDS: HumuLIN 70/30 (300 UNITS/3 ML VIAL) SC SCH ×2 (09:13→21:36)
[2020-05-04] MEDS: traMADol HCl 50 MG TAB PO PRN ×2 (09:23→21:40)
[2020-05-04] MEDS: Folic Acid/Vit B Comp W-C PO SCH (09:23)
[2020-05-04] MEDS ORDERED: Cefepime 0.5 GM in Sodium Chloride 0.9% 100 ML IVPB SCH (21:00)
[2020-05-04] MEDS: rOPINIRole HCl 1 MG TAB PO SCH (21:36)
[2020-05-05] MEDS: Levothyroxine Sodium 25 MCG TAB PO SCH (05:18)
--- NOTE | 2020-05-05 07:03 | PRG ---
DATE OF SERVICE: 05/04/2020 SUBJECTIVE: The patient feels well, sitting up in chair with no complaints, eating supper. No fever and chills. OBJECTIVE: VITAL SIGNS: Temperature is 98, pulse 76, respirations 18, O2 sats 96% on room air, and blood pressure is 97/47. LUNGS: Clear. CARDIAC: Shows regular rhythm. ABDOMEN: Soft and nontender. Culture of the left foot has returned; however, grows Enterobacter and Klebsiella sensitive to Levaquin. ASSESSMENT: Gram-negative infection, foot wound. PLAN: 1. We will start on Levaquin at renal doses of 750 after every dialysis. 2. Continue hemodialysis three times weekly. 3. Continue Accu-Cheks to monitor and titrate and control diabetes. 4. Continue PT and OT. Job ID: [id number]
[2020-05-05] MEDS: Clopidogrel Bisulfate 75 MG TAB PO SCH (08:39)
[2020-05-05] MEDS: Gabapentin 300 MG CAP PO SCH ×3 (08:39→21:06)
[2020-05-05] MEDS: Calcium Acetate 667 MG CAP PO SCH ×3 (08:39→17:19)
[2020-05-05] MEDS: Folic Acid/Vit B Comp W-C PO SCH (08:39)
[2020-05-05] MEDS: Midodrine HCl 5 MG TAB PO SCH ×2 (08:39→17:19)
[2020-05-05] MEDS: Atorvastatin Calcium 20 MG TAB PO SCH (08:39)
[2020-05-05] MEDS: HumuLIN 70/30 (300 UNITS/3 ML VIAL) SC SCH ×2 (08:40→21:06)
[2020-05-05] MEDS: Fluticasone Propionate Nasal Spray 16 gm Bottle NASAL SCH (08:40)
[2020-05-05] MEDS: Aspirin 81 mg Enteric Coated Tablet PO SCH (08:40)
--- NOTE | 2020-05-05 20:01 | PRG ---
DATE OF SERVICE: 05/05/2020 SUBJECTIVE: The patient feels well. No complaints of pain, chills, nausea, vomiting, fever, status post culture of the left foot revealing Enterobacter and Klebsiella sensitive to Levaquin. OBJECTIVE: VITAL SIGNS: Temperature 97.8, pulse 85, respirations 18, O2 saturations 97% on room air, and blood pressure 116/56. EXTREMITIES: Left foot is bandaged with a clean dry wound being followed by nursing with silver dressing covering the suture over the amputation of toes. ASSESSMENT: Gram-negative infection of amputation of right great toe and right 4th toe. PLAN: 1. Levaquin 500 three times weekly after dialysis orally. 2. Continue wound care per nurses. 3. Continue dialysis 3 times weekly. 4. Continue stress ulcer prophylaxis. Job ID: [id number]
[2020-05-05] MEDS: rOPINIRole HCl 1 MG TAB PO SCH (21:06)
[2020-05-05] MEDS: traMADol HCl 50 MG TAB PO PRN (21:14)
[2020-05-06] MEDS: traMADol HCl 50 MG TAB PO PRN (05:34)
[2020-05-06] MEDS: Levothyroxine Sodium 25 MCG TAB PO SCH (05:35)
[2020-05-06] MEDS: Gabapentin 300 MG CAP PO SCH ×3 (08:24→20:31)
[2020-05-06] MEDS: Clopidogrel Bisulfate 75 MG TAB PO SCH (08:24)
[2020-05-06] MEDS: Fluticasone Propionate Nasal Spray 16 gm Bottle NASAL SCH (08:24)
[2020-05-06] MEDS: Aspirin 81 mg Enteric Coated Tablet PO SCH (08:25)
[2020-05-06] MEDS: Folic Acid/Vit B Comp W-C PO SCH (08:25)
[2020-05-06] MEDS: Atorvastatin Calcium 20 MG TAB PO SCH (08:25)
[2020-05-06] MEDS: HumuLIN 70/30 (300 UNITS/3 ML VIAL) SC SCH ×2 (08:25→21:15)
[2020-05-06] MEDS: Calcium Acetate 667 MG CAP PO SCH ×3 (08:25→16:10)
[2020-05-06] MEDS: Midodrine HCl 5 MG TAB PO SCH ×2 (08:25→16:09)
[2020-05-06] MEDS: rOPINIRole HCl 1 MG TAB PO SCH (20:30)
--- NOTE | 2020-05-06 22:27 | PRG ---
DATE OF SERVICE: 05/06/2020 SUBJECTIVE: Mr. Wells is a 64-year-old very pleasant black male, who presented to the hospital with fever, chills, and severe lymphedema. He had an episode of gangrene of his right great toe along with leukocytosis. He was transferred to [facility] in [place], where Dr. Babcock had to do a PTCA to increase his circulation in the right superior artery, which was occluded. Ended up having an amputation of his right fourth toe and partial amputation of the distal right great toe by counsellors, Shwetha Fisher. Wound VAC was applied and the patient was transferred stabilized to [facility] for continued physical therapy and occupational therapy. The patient is doing well, but his foot continues to do poorly. He has an appointment with Dr. Fisher on Wednesday for further evaluation. I feel that his peripheral vascular disease is severe enough that he may end up with amputation. OBJECTIVE: VITAL SIGNS: This morning, reveal blood pressure 138/60, pulse 92, respirations 18 to 20, O2 saturation 96%, and T-max 98. GENERAL: This is a well-developed, well-nourished, morbidly obese black male, in no apparent distress at this time. HEENT: Normocephalic and nontraumatic cranium. Pupils are equally round and reactive. Extraocular movements are intact. Nose and throat are dry, but clear. NECK: Supple without masses, nodes, or bruits. CHEST: Clear to auscultation. No rales, rhonchi, or wheezes are heard. HEART: Reveals a regular rate and rhythm without murmurs, gallops, or rubs. ABDOMEN: Morbidly obese, soft, and nontender. Normal bowel sounds in all 4 quadrants noted. No rebound or guarding is noted. GENITOURINARY: Deferred. EXTREMITIES: Reveal no clubbing, cyanosis, but lymphedema bilaterally. The patient's wound VAC has been removed. He has right foot wrapped. He has no significant drainage noted at this time. LABORATORY DATA: No labs were done except for his Accu-Cheks. Accu-Cheks reveal sugar yesterday morning was 98, they did not do lunch, supper was 157 and they did not do at bedtime. This morning his fasting was 147. ASSESSMENT: 1. Gangrene requiring amputation of the right fourth toe and partial amputation of the right great toe. 2. Severe peripheral vascular disease with poor wound healing. 3. Diabetes, fairly stable most of the time. 4. Hypertension. 5. End-stage renal disease on dialysis Wednesday, Wednesday, and Wednesday. 6. Recent percutaneous luminal angioplasty and stent placement in the right superior temporal artery by Dr. Babcock. 7. Chronic lymphedema. 8. Hyperlipidemia. 9. Peripheral neuropathy. 10. Deconditioning. 11. Generalized weakness. PLAN: 1. The patient has an appointment with Dr. Fisher on Wednesday to further evaluate. 2. Dialysis on Wednesday, Wednesday, and Wednesday. 3. Continue to monitor the patient's diabetes with Accu-Cheks before meals and at bedtime. 4. Continue to monitor the patient's chronic lymphedema. 5. Monitor the patient's mental status for further decompensation. 6. Stress ulcer prophylaxis. 7. Decubitus precautions. 8. Generalized pain management. 9. Continue physical therapy and occupation as tolerated. 10. Evaluation next Wednesday by Dr. Fisher, counsellors and possibly Dr. Babcock, his pressurizer. Job ID: [id number]
[2020-05-07] MEDS: Levothyroxine Sodium 25 MCG TAB PO SCH (06:14)
[2020-05-07] MEDS: Gabapentin 300 MG CAP PO SCH ×3 (08:28→21:05)
[2020-05-07] MEDS: Folic Acid/Vit B Comp W-C PO SCH (08:28)
[2020-05-07] MEDS: Aspirin 81 mg Enteric Coated Tablet PO SCH (08:28)
[2020-05-07] MEDS: Atorvastatin Calcium 20 MG TAB PO SCH (08:28)
[2020-05-07] MEDS: Midodrine HCl 5 MG TAB PO SCH ×2 (08:28→16:58)
[2020-05-07] MEDS: Clopidogrel Bisulfate 75 MG TAB PO SCH (08:28)
[2020-05-07] MEDS: Calcium Acetate 667 MG CAP PO SCH ×3 (08:28→16:57)
[2020-05-07] MEDS: Fluticasone Propionate Nasal Spray 16 gm Bottle NASAL SCH (08:29)
[2020-05-07] MEDS: HumuLIN 70/30 (300 UNITS/3 ML VIAL) SC SCH ×2 (08:30→21:06)
[2020-05-07] MEDS: rOPINIRole HCl 1 MG TAB PO SCH (21:06)
[2020-05-07] MEDS: Sulfameth/Trimethoprim DS 800-160mg TAB PO SCH (21:06)
--- NOTE | 2020-05-07 21:06 | PRG ---
DATE OF SERVICE: 05/07/2020 SUBJECTIVE: Mr. Wells is a well-developed 64-year-old black man, who presented to the emergency room with fever, chills, and severe lymphedema. He had gangrene of his right great toe along with leukocytosis. He was transferred to [facility] in [place], where Dr. Babcock did a PTCA of the right superior artery to increase his circulation. He ended up having to have amputation to right 4th toe and partial amputation of the distal right great toe by line erector, Shwetha Fisher. Wound VAC was applied. The patient was transferred to [facility]. He was here for physical therapy and occupational therapy to increase his strength and stamina. The patient saw Dr. Fisher again today, who re-evaluated his wound, ordered some different dressings, and off the wound VAC at this time. He did also have a problem with a wound culture coming back growing I believe Pseudomonas enterococcus. He was placed on appropriate antibiotics, which include Levaquin 500 mg every Wednesday, Wednesday, Wednesday, and sulfamethoxazole b.i.d. for 14 doses. The patient agrees and we will continue to do wound care on his leg until Dr. Fisher sees him again in 3 weeks. OBJECTIVE: VITAL SIGNS: Today reveal blood pressure 100/44, pulse 83 to 87, respirations 18, O2 saturation 95% to 96% on room air, T-max 98.6. GENERAL: This is a well-developed, well-nourished, obese black male, in no apparent distress at this time. HEENT: Normocephalic and nontraumatic cranium. Pupils are equally round and reactive. Extraocular movements are intact. Nose and throat are slightly dry. NECK: Supple without masses, nodes, or bruits. CHEST: Clear to auscultation. No rales, rhonchi, wheezes are heard. HEART: Reveals a regular rate and rhythm without, gallops, or rubs. ABDOMEN: Obese, soft, nontender without organomegaly. Normal bowel sounds are noted. No rebound or guarding is noted. GENITOURINARY: Deferred. EXTREMITIES: Reveal no clubbing, cyanosis, or edema. The patient's right foot is wrapped. No wound VAC is noted at this time. ASSESSMENT: 1. Gangrene requiring amputation of the 4th right toe and the partial amputation of the right great toe. 2. Severe peripheral vascular disease with poor wound healing. 3. Diabetes, fairly stable most of the time. 4. Hypertension with episodes of orthostasis. 5. End-stage renal disease on dialysis Wednesday, Wednesday, Wednesday. 6. Recent percutaneous luminal angioplasty and stent placement of the right superior artery. 7. Chronic lymphedema. 8. Hyperlipidemia. 9. Peripheral neuropathy. 10. Deconditioning. 11. Generalized weakness. PLAN: 1. Continue present physical therapy and occupational therapy. 2. Continue dialysis on Wednesday, Wednesday, Wednesday. 3. Continue to monitor the patient's diabetes with Accu-Cheks before meals and at bedtime. 4. Continue to monitor the patient's chronic lymphedema. 5. Monitor the patient's mental status for further decompensation. 6. Stress ulcer prophylaxis. 7. Decubitus precautions. 8. Generalized pain management. 9. Continue PT and OT. 10. Evaluation on Wednesday by Dr. Fisher, then re-evaluation in [address] Fisher. Job ID: [id number] [facility]
[2020-05-08] MEDS: Levothyroxine Sodium 25 MCG TAB PO SCH (06:00)
--- NOTE | 2020-05-08 07:56 | PRG ---
DATE OF SERVICE: 05/08/2020 SUBJECTIVE: Mr. Wells is a 64-year-old black male. I presented to the emergency room and was found to have gangrene of his right great toe. He was transferred to [facility], where Dr. Babcock did a PTCA of the right superior iliac artery to increase his circulation. He ended up with amputation of the right fourth toe and partial amputation of the distal right great toe by gas analyst, Shwetha Fisher. The patient was not getting better and wound VAC was removed, and the patient was seen by Dr. Fisher yesterday, who felt that different wound care would maybe benefit the patient, so she has initiated that. He is transferred back to [facility] with new wound care instructions and here for physical therapy and occupational therapy. The patient states he is doing well and is getting ready to go to dialysis this morning. OBJECTIVE: VITAL SIGNS: This morning reveal blood pressure 102/47, pulse 81 to 83, respirations 18 to 20, O2 saturation 93% to 95% on room air, and T-max 98.6. GENERAL: This is a well-developed, well-nourished, obese black male, in no apparent distress at this time. HEENT: Reveals normocephalic and nontraumatic cranium. Pupils equally round and reactive. Extraocular movements are intact. Nose and throat are slightly dry. NECK: Supple without masses, nodes, or bruits. CHEST: Clear to auscultation. No rales, rhonchi, wheezes, or cough is heard. HEART: Reveals a regular rate and rhythm without murmurs, gallops, or rubs. ABDOMEN: Obese, soft, and nontender. Normal bowel sounds are noted in all 4 quadrants. No rebound or guarding is noted. : Deferred. EXTREMITIES: Reveal no clubbing, cyanosis, or edema. The patient's right foot is not on wound VAC anymore. He is wrapped and we will change his dressings per Dr. Fisher's instructions. ASSESSMENT: 1. Gangrene requiring amputation of the fourth right toe and partial amputation of the right great toe. 2. Poor wound healing secondary to severe peripheral vascular disease. 3. Diabetes, fairly stable. 4. Hypertension with occasional episodes of orthostasis. 5. End-stage renal disease on dialysis Wednesday, Wednesday, and Wednesday. 6. Recent percutaneous luminal angioplasty and stent placement of the right superior artery done by Dr. Babcock. 7. Chronic lymphedema. 8. Hyperlipidemia. 9. Peripheral neuropathy. 10. Generalized deconditioning. 11. Generalized weakness. PLAN: 1. The patient is going for dialysis this morning. 2. Continue to monitor the patient's diabetes with Accu-Cheks before meals and at bedtime. 3. Continue to monitor the patient's blood pressure closely especially for orthostatic hypotension. 4. Stress ulcer prophylaxis. 5. Decubitus precautions. 6. Generalized pain management. 7. Continue physical therapy and occupational therapy as tolerated. 8. Re-evaluation by Dr. Rosales in about 3 weeks. Job ID: [id number]
[2020-05-08] MEDS: Folic Acid/Vit B Comp W-C PO SCH (08:39)
[2020-05-08] MEDS: Calcium Acetate 667 MG CAP PO SCH ×3 (08:39→17:22)
[2020-05-08] MEDS: Sulfameth/Trimethoprim DS 800-160mg TAB PO SCH ×2 (08:39→21:08)
[2020-05-08] MEDS: Gabapentin 300 MG CAP PO SCH ×3 (08:40→21:07)
[2020-05-08] MEDS: Midodrine HCl 5 MG TAB PO SCH ×2 (08:40→17:16)
[2020-05-08] MEDS: Aspirin 81 mg Enteric Coated Tablet PO SCH (08:40)
[2020-05-08] MEDS: Atorvastatin Calcium 20 MG TAB PO SCH (08:40)
[2020-05-08] MEDS: Clopidogrel Bisulfate 75 MG TAB PO SCH (08:40)
[2020-05-08] MEDS: Fluticasone Propionate Nasal Spray 16 gm Bottle NASAL SCH (08:41)
[2020-05-08] MEDS: HumuLIN 70/30 (300 UNITS/3 ML VIAL) SC SCH ×2 (11:38→21:08)
[2020-05-08] MEDS: traMADol HCl 50 MG TAB PO PRN (21:08)
[2020-05-08] MEDS: rOPINIRole HCl 1 MG TAB PO SCH (21:08)
[2020-05-09] MEDS: Levothyroxine Sodium 25 MCG TAB PO SCH (05:29)
[2020-05-09] MEDS: Fluticasone Propionate Nasal Spray 16 gm Bottle NASAL SCH (08:38)
[2020-05-09] MEDS: Sulfameth/Trimethoprim DS 800-160mg TAB PO SCH ×2 (08:39→21:13)
[2020-05-09] MEDS: Clopidogrel Bisulfate 75 MG TAB PO SCH (08:39)
[2020-05-09] MEDS: Aspirin 81 mg Enteric Coated Tablet PO SCH (08:39)
[2020-05-09] MEDS: Midodrine HCl 5 MG TAB PO SCH ×2 (08:39→16:01)
[2020-05-09] MEDS: Folic Acid/Vit B Comp W-C PO SCH (08:39)
[2020-05-09] MEDS: Calcium Acetate 667 MG CAP PO SCH ×3 (08:39→16:01)
[2020-05-09] MEDS: Atorvastatin Calcium 20 MG TAB PO SCH (08:39)
[2020-05-09] MEDS: Gabapentin 300 MG CAP PO SCH ×3 (08:39→21:13)
[2020-05-09] MEDS: HumuLIN 70/30 (300 UNITS/3 ML VIAL) SC SCH ×2 (08:40→21:14)
--- NOTE | 2020-05-09 11:25 | PRG ---
DATE OF SERVICE: 05/09/2020 SUBJECTIVE: Mr. Wells is a well-developed, well-nourished 64-year-old black male, somewhat overweight, who was seen in the emergency room and noted to be septic. He had a gangrenous right great toe and fourth toe. He was transferred to [facility], where Dr. Babcokc did a PTCA of his right superior femoral artery to increase his circulation in his foot. Unfortunately, he ended up with amputation of the right fourth toe and partial amputation of the distal right great toe by reinsurance claim analyst, Dr. Shwetha Fisher. Postoperatively, the patient did fairly well and transferred to [facility] for physical therapy and occupational therapy. The patient came here with a wound VAC. The wound VAC has been removed. He has very little drainage. The patient did see Dr. Fisher in followup and she changed his antibiotics and changed his cream and wound care strategy. He is to see her again in 2 weeks. OBJECTIVE: VITAL SIGNS: Today reveal blood pressure 105/52, pulse 76, respirations 18, O2 saturation 96% to 99% on room air, T-max 98.2. GENERAL: This is a well-developed, well-nourished, very pleasant, slightly obese white male, in no apparent distress at this time. HEENT: Reveals normocephalic and nontraumatic cranium. Pupils are equally round and reactive. Extraocular movements are intact. Nose and throat are slightly dry. NECK: Supple without masses, nodes, or bruits. CHEST: Clear to auscultation. No rales, rhonchi, or wheezes are heard. HEART: Reveals a regular rate and rhythm without murmurs, gallops, or rubs. ABDOMEN: Obese, soft, and nontender. Normal bowel sounds are noted in all 4 quadrants. No rebound or guarding is noted. GENITOURINARY: Deferred. EXTREMITIES: Reveal no clubbing or cyanosis with lymphedema. The patient's right foot has a strap shoe on it and no wound VAC. It is wrapped up and he is changing his dressings per Dr. Fisher. ASSESSMENT: 1. Gangrene of the right foot requiring amputation of the fourth right toe and partial amputation of the right great toe. 2. Poor wound healing secondary to severe peripheral vascular disease. 3. Hypertension with occasional episodes of hypotensive orthostasis. 4. Diabetes, fairly stable. 5. End-stage renal disease with dialysis Wednesday, Wednesday, and Wednesday. 6. Recent percutaneous luminal angioplasty and stent placed by Dr. Babcock in the right femoral artery. 7. Chronic lymphedema. 8. Hyperlipidemia. 9. Peripheral neuropathy. 10. Generalized deconditioning. 11. Generalized weakness. PLAN: 1. Continue present wound care per Dr. Fisher's recommendations. 2. Dialysis on Wednesday, Wednesday, and Wednesday. 3. Continue to monitor the patient's diabetes with Accu-Cheks a.c. and at bedtime. 4. Continue to monitor the patient's blood pressure closely. Watch for orthostasis. 5. Stress ulcer prophylaxis. 6. Decubitus precautions. 7. Generalized pain management. 8. Continue PT and OT. 9. Re-evaluation by Dr. Fisher in about 3 weeks. Job ID: [id number]
[2020-05-09] MEDS: rOPINIRole HCl 1 MG TAB PO SCH (21:13)
[2020-05-10] MEDS: Levothyroxine Sodium 25 MCG TAB PO SCH (05:24)
[2020-05-10] MEDS: traMADol HCl 50 MG TAB PO PRN ×2 (05:25→21:52)
--- NOTE | 2020-05-10 07:55 | PRG ---
DATE OF SERVICE: 05/10/2020 SUBJECTIVE: Mr. Wells is a well-developed, well-nourished, very pleasant, 64-year-old black male, who was seen in the emergency room with fever, chills, leukocytosis, and sepsis. He was transferred to [facility] in [place], where Dr. Babcock did a PTCA of the right superior femoral artery to increase his circulation to his foot. Unfortunately, he still had a resultant amputation of the right fourth toe and partial amputation of the distal right great toe by rod buster helper, Dr. Shwetha Fisher. Postoperatively, the patient did very well, transferred to [facility] for physical therapy, occupational therapy, and pain management. He did see Dr. Fisher again on Wednesday, and she changed his wound orders. The patient otherwise states he is doing well and has no concerns or complaints today. OBJECTIVE: VITAL SIGNS: Today reveal blood pressure 102/46, pulse 90, respirations 18, O2 saturation 96% to 99% on room air, and T-max 98.7. GENERAL: This is a well-developed, well-nourished, obese black male, in no apparent distress at this time. HEENT: Reveals normocephalic and nontraumatic cranium. Pupils are equally round and reactive. Extraocular movements are intact. Nose and throat are slightly dry. NECK: Supple without masses, nodes, or bruits. CHEST: Clear to auscultation. No rales, rhonchi, or wheezes are heard. HEART: Reveals a regular rate and rhythm without murmurs, gallops, or rubs. ABDOMEN: Soft, obese, and nontender. Normal bowel sounds are noted in all 4 quadrants. No rebound or guarding was noted. GENITOURINARY: Deferred. EXTREMITIES: Reveal no clubbing or cyanosis, but the patient does have some lymphedema. The patient's right foot has no wound VAC on it, and the dressings were changed about every 3 days. ASSESSMENT: 1. Gangrene of the right foot, requiring amputation of the fourth right toe and partial amputation of the right great toe. 2. Severe peripheral vascular disease with resultant poor wound healing. 3. Hypertension with occasional episodes of hypotensive orthostasis, especially post dialysis. 4. Diabetes, fairly well controlled. 5. End-stage renal disease, on dialysis Wednesday, Wednesday, Wednesday. 6. Recent percutaneous luminal angioplasty and stent placed by Dr. Babcock at the right superior femoral artery. 7. Chronic lymphedema. 8. Hyperlipidemia. 9. Peripheral neuropathy. 10. Generalized deconditioning. 11. Generalized weakness. PLAN: 1. Continue wound care per Dr. Fisher's recommendations. 2. Dialysis Wednesday, Wednesday, and Wednesday. 3. Continue to monitor the patient's diabetes with Accu-Cheks a.c. and at bedtime. 4. Continue to monitor the patient's blood pressure closely. Watch for orthostasis. 5. Stress ulcer prophylaxis. 6. Decubitus precautions. 7. Generalized pain management. 8. Continue physical therapy and occupational therapy. 9. Follow up with Dr. Fisher in about 2 weeks. Job ID: [id number]
[2020-05-10] MEDS: Fluticasone Propionate Nasal Spray 16 gm Bottle NASAL SCH (08:36)
[2020-05-10] MEDS: Gabapentin 300 MG CAP PO SCH ×3 (08:37→21:49)
[2020-05-10] MEDS: Atorvastatin Calcium 20 MG TAB PO SCH (08:37)
[2020-05-10] MEDS: HumuLIN 70/30 (300 UNITS/3 ML VIAL) SC SCH ×2 (08:37→21:50)
[2020-05-10] MEDS: Sulfameth/Trimethoprim DS 800-160mg TAB PO SCH ×2 (08:37→21:49)
[2020-05-10] MEDS: Folic Acid/Vit B Comp W-C PO SCH (08:37)
[2020-05-10] MEDS: Midodrine HCl 5 MG TAB PO SCH ×2 (08:37→17:43)
[2020-05-10] MEDS: Clopidogrel Bisulfate 75 MG TAB PO SCH (08:37)
[2020-05-10] MEDS: Calcium Acetate 667 MG CAP PO SCH ×3 (08:38→17:43)
[2020-05-10] MEDS: Aspirin 81 mg Enteric Coated Tablet PO SCH (08:38)
[2020-05-10] MEDS: rOPINIRole HCl 1 MG TAB PO SCH (21:49)
[2020-05-11 04:55] LABS: #Basophils 0.1 thou/uL (0.0-0.2); #Eosinphils 0.3 thou/uL (0.0-0.7); #Lymphocytes 1.9 thou/uL (1.20-3.40); #Monocytes 0.8 thou/uL (0.11-0.59); #Neutrophils 7.1 thou/uL (1.40-6.50); %Basophils 1.1 % (0.0-1.0); %Eosinophils 3.2 % (0.0-10.0); %Lymphocytes 18.5 % (21.0-51.0); %Monocytes 7.6 % (0.0-10.0); %Neutrophils 69.7 % (42.0-75.0); Hemoglobin 8.3 g/dL (14.0-18.0); Mean Corpuscular HGB CONC 29.7 g/dL (32.0-36.0); Mean Corpuscular Hemoglobin 26.6 pg (27.0-31.0); Mean Corpuscular Volume 89.6 fL (78.0-98.0); Mean Platelet Volume 6.5 fL (7.4-10.4); Platelet Count 195 thou/uL (130-400); RBC Distribution Width 15.6 % (11.5-14.5); Red Blood Cell (RBC) Count 3.11 mill/uL (4.70-6.10); White Blood Cell (WBC) Count 10.2 thou/uL (4.8-10.8)
[2020-05-11 05:16] LABS: ALT (SGPT) 10 U/L (8-55); AST (SGOT) 14 U/L (5-34); Albumin 3.4 g/dL (3.4-4.8); Alkaline Phosphatase 92 U/L (40-110); Anion Gap 16 mmol/L (10-20); BUN (Urea Nitrogen) 34 mg/dL (8.4-25.7); Bilirubin, Total 0.3 mg/dL (0.2-1.2); CRP (Inflammatory) 4.75 mg/dL (= or < 0.5); Calc. Creatinine Clearance 35 mL/min (70-130); Carbon Dioxide 31 mmol/L (23-31); Chloride 96 mmol/L (98-107); Estimated GFR-MDRD 13; Globulin 3.7 g/dL (2.4-3.5); Glucose 94 mg/dL (80-115); Potassium 3.7 mmol/L (3.5-5.1); Protein, Total 7.1 g/dL (5.8-8.1); Sodium 139 mmol/L (136-145)
[2020-05-11] MEDS: Levothyroxine Sodium 25 MCG TAB PO SCH (05:29)
[2020-05-11] MEDS: Fluticasone Propionate Nasal Spray 16 gm Bottle NASAL SCH (08:39)
[2020-05-11] MEDS: Sulfameth/Trimethoprim DS 800-160mg TAB PO SCH ×2 (08:40→21:49)
[2020-05-11] MEDS: Clopidogrel Bisulfate 75 MG TAB PO SCH (08:40)
[2020-05-11] MEDS: Atorvastatin Calcium 20 MG TAB PO SCH (08:40)
[2020-05-11] MEDS: Aspirin 81 mg Enteric Coated Tablet PO SCH (08:40)
[2020-05-11] MEDS: Midodrine HCl 5 MG TAB PO SCH ×2 (08:41→17:35)
[2020-05-11] MEDS: Calcium Acetate 667 MG CAP PO SCH ×3 (08:42→17:35)
[2020-05-11] MEDS: HumuLIN 70/30 (300 UNITS/3 ML VIAL) SC SCH ×2 (08:44→21:49)
[2020-05-11] MEDS: Folic Acid/Vit B Comp W-C PO SCH (08:53)
[2020-05-11] MEDS: traMADol HCl 50 MG TAB PO PRN ×2 (08:53→21:50)
[2020-05-11] MEDS: Gabapentin 300 MG CAP PO SCH ×3 (08:53→21:49)
--- NOTE | 2020-05-11 15:44 | PRG ---
DATE OF SERVICE: 05/11/2020 SUBJECTIVE: Mr. Wells is up in his chair. He denies any concerns or questions. His wound VAC has been removed. He is tolerating his dialysis. No fever or chills. OBJECTIVE: VITAL SIGNS: He is afebrile, heart rate 78, respirations 21, oxygen saturation 93% on room air, blood pressure was 85/36 this morning. CARDIOVASCULAR SYSTEM: S1 and S2 plus. RESPIRATORY SYSTEM: Normal vesicular breath sounds heard in all lung pacheco. ABDOMEN: Soft, obese, nontender. Bowel sounds heard in all quadrants. EXTREMITIES: Without cyanosis or clubbing. Chronic stasis dermatitis and venous insufficiency. Right foot is in a walking boot. IMPRESSION: 1. Resolving cellulitis and osteomyelitis in his right foot. 2. Peripheral vascular disease. 3. Diabetes mellitus, type 2. 4. Hypertension. 5. Dyslipidemia. 6. End-stage renal disease, on hemodialysis. 7. Diabetic peripheral neuropathy. PLAN: 1. Continue current medications. 2. Nutritional support with 1800-calorie heart healthy ADA renal diet. 3. Accu-Cheks b.i.d. per the patient's request. He does not want to check 4 times a day. 4. Hemodialysis per Nephrology. 5. Wound care. 6. DVT and stress ulcer prophylaxis. 7. Decubitus precautions. 8. Routine laboratory values. 9. Continue therapy. Job ID: [id number]
[2020-05-11] MEDS: rOPINIRole HCl 1 MG TAB PO SCH (21:49)
[2020-05-12] MEDS: Levothyroxine Sodium 25 MCG TAB PO SCH (05:21)
[2020-05-12] MEDS: traMADol HCl 50 MG TAB PO PRN (08:47)
[2020-05-12] MEDS: Fluticasone Propionate Nasal Spray 16 gm Bottle NASAL SCH (08:47)
[2020-05-12] MEDS: Aspirin 81 mg Enteric Coated Tablet PO SCH (08:49)
[2020-05-12] MEDS: Midodrine HCl 5 MG TAB PO SCH ×2 (08:49→17:05)
[2020-05-12] MEDS: Sulfameth/Trimethoprim DS 800-160mg TAB PO SCH ×2 (08:50→21:15)
[2020-05-12] MEDS: Gabapentin 300 MG CAP PO SCH ×3 (08:50→21:15)
[2020-05-12] MEDS: Calcium Acetate 667 MG CAP PO SCH ×3 (08:50→17:05)
[2020-05-12] MEDS: Atorvastatin Calcium 20 MG TAB PO SCH (08:50)
[2020-05-12] MEDS: Folic Acid/Vit B Comp W-C PO SCH (08:50)
[2020-05-12] MEDS: Clopidogrel Bisulfate 75 MG TAB PO SCH (08:50)
[2020-05-12] MEDS: HumuLIN 70/30 (300 UNITS/3 ML VIAL) SC SCH ×2 (08:51→21:17)
--- NOTE | 2020-05-12 15:17 | PRG ---
DATE OF SERVICE: 05/12/2020 SUBJECTIVE: Mr. Wells is resting in bed. He denies any complaints. No fever or chills. No family at bedside. OBJECTIVE: VITAL SIGNS: He is afebrile. Heart rate 76, respirations 18, oxygen saturation 94% on room air, blood pressure 104/45. CARDIOVASCULAR: S1 and S2 plus. RESPIRATORY: Normal vesicular breath sounds. ABDOMEN: Soft, nontender. Bowel sounds heard in all quadrants. EXTREMITIES: Without cyanosis or clubbing. Chronic venous insufficiency with stasis dermatitis. Right foot in surgical boot. IMPRESSION: 1. Right foot cellulitis and osteomyelitis, status post amputation of digits. 2. End-stage renal disease, on hemodialysis. 3. Obesity. 4. Chronic venous insufficiency. 5. Peripheral vascular disease. 6. Hypertension. 7. Dyslipidemia. 8. Diabetes mellitus with peripheral neuropathy. PLAN: 1. Continue current medications. 2. 1800 calorie heart healthy ADA renal diet. 3. Accu-Cheks with sliding scale coverage. 4. Hemodialysis. 5. Wound care. 6. DVT and stress ulcer prophylaxis. 7. Decubitus precautions. 8. Dr. Villalba back [facility]. Job ID: [id number]
[2020-05-12] MEDS: rOPINIRole HCl 1 MG TAB PO SCH (21:15)
[2020-05-13] MEDS: Levothyroxine Sodium 25 MCG TAB PO SCH (05:15)
[2020-05-13] MEDS: Aspirin 81 mg Enteric Coated Tablet PO SCH (07:50)
[2020-05-13] MEDS: Midodrine HCl 5 MG TAB PO SCH ×2 (07:50→16:25)
[2020-05-13] MEDS: Calcium Acetate 667 MG CAP PO SCH ×3 (07:50→16:25)
[2020-05-13] MEDS: Atorvastatin Calcium 20 MG TAB PO SCH (07:52)
[2020-05-13] MEDS: Clopidogrel Bisulfate 75 MG TAB PO SCH (07:53)
[2020-05-13] MEDS: Gabapentin 300 MG CAP PO SCH ×4 (07:53→21:12)
[2020-05-13] MEDS: Sulfameth/Trimethoprim DS 800-160mg TAB PO SCH ×2 (07:53→21:13)
[2020-05-13] MEDS: HumuLIN 70/30 (300 UNITS/3 ML VIAL) SC SCH ×2 (07:56→21:14)
[2020-05-13] MEDS: Fluticasone Propionate Nasal Spray 16 gm Bottle NASAL SCH (07:57)
[2020-05-13] MEDS: Folic Acid/Vit B Comp W-C PO SCH (09:07)
--- NOTE | 2020-05-13 13:15 | PRG ---
DATE OF SERVICE: 05/13/2020 SUBJECTIVE: Mr. Wells is a well-developed, well-nourished 64-year-old black male, who presented to the emergency room with fever, chills, leukocytosis, and sepsis. He is transferred to [facility] [place], where Dr. Babcock evaluated the patient, felt that he had right superior femoral artery occluded. PTCA was done, which did increase his circulation in his foot. The patient had resultant amputation of his right fourth toe anyway and had partial amputation of distal great toe by sales team member, Dr. Shwetha Fisher. Postoperatively, the patient did well, transferred to [facility] for physical therapy and occupational therapy and pain management. The patient states he had a good weekend. He is on his way to dialysis. He has no concerns or complaints. OBJECTIVE: VITAL SIGNS: Today reveal blood pressure 110/51, pulse 75, respirations 18 to 20, O2 sat 93% to 96% on room air, and T-max 98.0. GENERAL: This is a well-developed, well-nourished, very pleasant, slightly obese white male, in no apparent distress at this time. HEENT: Normocephalic and nontraumatic cranium. Pupils are equally round and reactive. Extraocular movements are intact. Nose and throat are slightly dry. NECK: Supple without masses, nodes or bruits. CHEST: Clear to auscultation. No rales, rhonchi, wheezes or cough is heard. HEART: Regular rate and rhythm without murmurs, gallops or rubs. ABDOMEN: Obese, soft, and nontender. Normal bowel sounds noted in all 4 quadrants. No rebound or guarding is noted. No CVA tenderness is noted. : Deferred. EXTREMITIES: No clubbing, cyanosis or edema. The patient still has some lymphedema. The patient's right foot has no wound VAC, but does have a loose open toed brace. LABORATORY DATA: Last labs over Wednesday revealed white count was 10,200 with hemoglobin of 8.3, hematocrit of 27.9, and a platelet count of 195,000. Sodium of 139, potassium of 3.7, chloride of 96, carbon dioxide of 31 with a BUN of 34, and creatinine of 4.44. The patient is a dialysis patient. Accu-Chek morning is 124. Yesterday morning fasting 106, before lunch 224, before supper not taken. ASSESSMENT: 1. Severe peripheral vascular disease with resultant poor wound healing. 2. Gangrene of the right foot, requiring amputation of the fourth right toe and the partial amputation of the right great toe. 3. Hypertension with orthostasis, mainly after dialysis. 4. Diabetes, fairly well controlled. 5. End-stage renal disease, on dialysis, Wednesday, Wednesday amid Wednesday. 6. Recent percutaneous luminal angioplasty and stent placement by Dr. Babcock in his right superior femoral artery. 7. Chronic lymphedema. 8. Hyperlipidemia. 9. Peripheral neuropathy. 10. Generalized deconditioning. 11. Generalized weakness. PLAN: 1. Continue wound care per Dr. Fisher's recommendation. 2. Dialysis on Wednesday, Wednesday, Wednesday. 3. Continue to monitor the patient's diabetes with Accu-Cheks a.c. and at bedtime. 4. Continue to monitor the patient's blood pressure closely. Watch for orthostasis. 5. Stress ulcer prophylaxis. 6. Generalized pain management. 7. Decubitus precautions. 8. Continue PT and OT. 9. Sees Dr. Rosales in about 2 weeks. Job ID: [id number]
[2020-05-13] MEDS: traMADol HCl 50 MG TAB PO PRN (16:25)
[2020-05-13] MEDS: rOPINIRole HCl 1 MG TAB PO SCH (21:13)
[2020-05-14] MEDS: Levothyroxine Sodium 25 MCG TAB PO SCH (05:55)
[2020-05-14] MEDS: Calcium Acetate 667 MG CAP PO SCH ×3 (08:57→17:04)
[2020-05-14] MEDS: Midodrine HCl 5 MG TAB PO SCH ×2 (08:58→17:04)
[2020-05-14] MEDS: Aspirin 81 mg Enteric Coated Tablet PO SCH (08:58)
[2020-05-14] MEDS: Clopidogrel Bisulfate 75 MG TAB PO SCH (08:59)
[2020-05-14] MEDS: Fluticasone Propionate Nasal Spray 16 gm Bottle NASAL SCH (08:59)
[2020-05-14] MEDS: Atorvastatin Calcium 20 MG TAB PO SCH (08:59)
[2020-05-14] MEDS: Gabapentin 300 MG CAP PO SCH ×3 (09:00→20:23)
[2020-05-14] MEDS: Folic Acid/Vit B Comp W-C PO SCH (09:00)
[2020-05-14] MEDS: HumuLIN 70/30 (300 UNITS/3 ML VIAL) SC SCH ×2 (09:00→20:23)
[2020-05-14] MEDS: Sulfameth/Trimethoprim DS 800-160mg TAB PO SCH ×2 (09:01→20:22)
[2020-05-14] MEDS: rOPINIRole HCl 1 MG TAB PO SCH (20:22)
--- NOTE | 2020-05-14 21:30 | PRG ---
DATE OF SERVICE: 05/14/2020 SUBJECTIVE: Mr. Wells is a well-developed, well-nourished, very pleasant 64-year-old black male. He presented to the emergency room basically with sepsis. He was transferred to [facility], where Dr. Babcock evaluated him and found that he had fever, chills, leukocytosis, and very severe peripheral vascular disease. He had a gangrenous right 4th toe and a gangrenous right great toe which had to be amputated by Dr. Shwetha Fisher. Dr. Bbacock did put a superior femoral artery stent in because it the femoral artery was occluded. Postop, the patient did well and transferred to [facility] for PT, OT, and pain management. The patient states he is doing well and actually is walking better. I did talk with Physical Therapy and they think that he is actually doing fairly well and maybe ready to be discharged like next Wednesday. OBJECTIVE: VITAL SIGNS: Today reveal blood pressure this morning was 122/56, pulse 94, respirations 18, O2 saturation 100% on room air. T-max 97.8. PHYSICAL EXAMINATION: GENERAL: This is a well-developed, well-nourished, very pleasant, slightly obese white male, in no apparent distress at this time. HEENT: Reveals normocephalic and nontraumatic cranium. Pupils equal, round, and reactive. Extraocular movements are intact. Nose and throat are slightly dry. NECK: Supple without masses, nodes, or bruits. CHEST: Clear to auscultation. No rales, rhonchi, wheezes, or cough is heard. HEART: Reveals a regular rate and rhythm without murmurs, gallops, or rubs. ABDOMEN: Obese, soft, nontender without organomegaly. Normal bowel sounds are noted in all 4 quadrants. No rebound or guarding is noted. GENITOURINARY: Deferred. EXTREMITIES: Reveal no clubbing, cyanosis, or edema. LABORATORY DATA: Sugars for today reveal fasting this morning was 150, this evening is 172. ASSESSMENT: 1. Severe peripheral vascular disease with resultant poor wound healing. 2. Gangrene of the right foot requiring amputation of the 4th right toe and partial amputation of the right great toe. 3. Hypertension with hypotensive orthostasis at times after dialysis. 4. Diabetes, fairly well controlled. 5. End-stage renal disease, on dialysis Wednesday, Wednesday, and Wednesday. 6. Percutaneous luminal angioplasty and stent placement by Dr. Babcock in right superior femoral artery. 7. Chronic lymphedema. 8. Hyperlipidemia. 9. Peripheral neuropathy. 10. Generalized deconditioning. 11. Generalized weakness. PLAN: 1. Continue wound care per Dr. Fisher's recommendations. 2. Continue hemodialysis on Wednesday, Wednesday, and Wednesday. 3. Continue to monitor the patient's blood pressure closely and watch for orthostasis. 4. Continue to monitor the patient's diabetes with Accu-Cheks at breakfast and at bedtime. 5. Stress ulcer prophylaxis. 6. General pain management. 7. Decubitus precautions. 8. Continue physical therapy and occupational therapy. 9. See Dr. Rosales in about 2 weeks. Job ID: [id number]
[2020-05-15] MEDS: Levothyroxine Sodium 25 MCG TAB PO SCH (04:59)
[2020-05-15] MEDS: Midodrine HCl 5 MG TAB PO SCH ×2 (08:39→16:31)
[2020-05-15] MEDS: Folic Acid/Vit B Comp W-C PO SCH (08:39)
[2020-05-15] MEDS: Sulfameth/Trimethoprim DS 800-160mg TAB PO SCH ×2 (08:39→20:06)
[2020-05-15] MEDS: Fluticasone Propionate Nasal Spray 16 gm Bottle NASAL SCH (08:40)
[2020-05-15] MEDS: Gabapentin 300 MG CAP PO SCH ×3 (08:40→20:06)
[2020-05-15] MEDS: Atorvastatin Calcium 20 MG TAB PO SCH (08:40)
[2020-05-15] MEDS: Clopidogrel Bisulfate 75 MG TAB PO SCH (08:40)
[2020-05-15] MEDS: Calcium Acetate 667 MG CAP PO SCH ×3 (08:42→16:31)
[2020-05-15] MEDS: Aspirin 81 mg Enteric Coated Tablet PO SCH (08:42)
[2020-05-15] MEDS: HumuLIN 70/30 (300 UNITS/3 ML VIAL) SC SCH ×2 (08:42→20:05)
[2020-05-15] MEDS: traMADol HCl 50 MG TAB PO PRN (16:34)
[2020-05-15] MEDS: rOPINIRole HCl 1 MG TAB PO SCH (20:06)
[2020-05-16] MEDS: Levothyroxine Sodium 25 MCG TAB PO SCH (05:25)
[2020-05-16] MEDS: Fluticasone Propionate Nasal Spray 16 gm Bottle NASAL SCH (09:33)
[2020-05-16] MEDS: HumuLIN 70/30 (300 UNITS/3 ML VIAL) SC SCH ×2 (09:33→20:56)
[2020-05-16] MEDS: Atorvastatin Calcium 20 MG TAB PO SCH (09:33)
[2020-05-16] MEDS: Gabapentin 300 MG CAP PO SCH ×3 (09:34→20:55)
[2020-05-16] MEDS: Folic Acid/Vit B Comp W-C PO SCH (09:34)
[2020-05-16] MEDS: Calcium Acetate 667 MG CAP PO SCH ×3 (09:34→17:09)
[2020-05-16] MEDS: Clopidogrel Bisulfate 75 MG TAB PO SCH (09:34)
[2020-05-16] MEDS: Midodrine HCl 5 MG TAB PO SCH ×2 (09:34→17:09)
[2020-05-16] MEDS: Sulfameth/Trimethoprim DS 800-160mg TAB PO SCH ×2 (09:34→20:55)
[2020-05-16] MEDS: Aspirin 81 mg Enteric Coated Tablet PO SCH (09:34)
--- NOTE | 2020-05-16 13:56 | PRG ---
DATE OF SERVICE: 05/16/2020 SUBJECTIVE: Mr. Wells is doing well. Denies any complaints. Resting comfortably. Tolerating his walking boot, up in his chair. OBJECTIVE: VITAL SIGNS: He is afebrile. Heart rate 81, respirations are 18, oxygen saturation 94% on room air, and blood pressure 102/44. CARDIOVASCULAR SYSTEM: S1 and S2 plus. RESPIRATORY SYSTEM: Normal vesicular breath sounds. ABDOMEN: Soft and nontender. Bowel sounds heard in all quadrants. EXTREMITIES: Without cyanosis or clubbing. Chronic venous stasis with venous insufficiency with stasis dermatitis. CENTRAL NERVOUS SYSTEM: Generalized weakness, otherwise nonfocal. IMPRESSION: 1. Right foot osteomyelitis, requiring amputation of some of his toes. 2. Peripheral vascular disease. 3. End-stage renal disease, on hemodialysis. 4. Morbid obesity. 5. Hypertension. 6. Dyslipidemia. 7. Peripheral neuropathy. PLAN: 1. Continue current medications. 2. Nutritional support with 1800-calorie heart healthy ADA renal diet. 3. Accu-Cheks with sliding scale coverage. 4. Hemodialysis per Nephrology. 5. Wound care. 6. DVT prophylaxis. 7. Decubitus precautions. 8. Stress ulcer prophylaxis. 9. There is a renewal order for his Bactrim. He was started on 05/07. I do not see any documentation of that being a chronic medication, but Dr. Villalba will be back on Wednesday, so I will renew it until Wednesday and then he can make the decision. Job ID: [id number]
[2020-05-16] MEDS: rOPINIRole HCl 1 MG TAB PO SCH (20:55)
[2020-05-16] MEDS: traMADol HCl 50 MG TAB PO PRN (23:16)
[2020-05-17] MEDS: traMADol HCl 50 MG TAB PO PRN ×2 (05:17→18:22)
[2020-05-17] MEDS: Levothyroxine Sodium 25 MCG TAB PO SCH (05:17)
[2020-05-17] MEDS: Midodrine HCl 5 MG TAB PO SCH ×2 (08:13→18:21)
[2020-05-17] MEDS: Calcium Acetate 667 MG CAP PO SCH ×3 (08:14→19:53)
[2020-05-17] MEDS: Atorvastatin Calcium 20 MG TAB PO SCH (08:14)
[2020-05-17] MEDS: Aspirin 81 mg Enteric Coated Tablet PO SCH (08:14)
[2020-05-17] MEDS: Gabapentin 300 MG CAP PO SCH ×3 (08:14→20:49)
[2020-05-17] MEDS: Sulfameth/Trimethoprim DS 800-160mg TAB PO SCH ×2 (08:14→20:49)
[2020-05-17] MEDS: Folic Acid/Vit B Comp W-C PO SCH (08:14)
[2020-05-17] MEDS: Clopidogrel Bisulfate 75 MG TAB PO SCH (08:14)
[2020-05-17] MEDS: Fluticasone Propionate Nasal Spray 16 gm Bottle NASAL SCH (08:15)
[2020-05-17] MEDS: HumuLIN 70/30 (300 UNITS/3 ML VIAL) SC SCH ×2 (08:20→20:49)
[2020-05-17] MEDS: rOPINIRole HCl 1 MG TAB PO SCH (20:49)
[2020-05-18] MEDS: Levothyroxine Sodium 25 MCG TAB PO SCH (05:28)
[2020-05-18] MEDS: Fluticasone Propionate Nasal Spray 16 gm Bottle NASAL SCH (08:27)
[2020-05-18] MEDS: Atorvastatin Calcium 20 MG TAB PO SCH (08:28)
[2020-05-18] MEDS: Calcium Acetate 667 MG CAP PO SCH ×3 (08:28→16:14)
[2020-05-18] MEDS: Midodrine HCl 5 MG TAB PO SCH ×2 (08:28→16:15)
[2020-05-18] MEDS: Aspirin 81 mg Enteric Coated Tablet PO SCH (08:28)
[2020-05-18] MEDS: Clopidogrel Bisulfate 75 MG TAB PO SCH (08:28)
[2020-05-18] MEDS: HumuLIN 70/30 (300 UNITS/3 ML VIAL) SC SCH ×2 (08:29→20:37)
[2020-05-18] MEDS: Folic Acid/Vit B Comp W-C PO SCH (08:29)
[2020-05-18] MEDS: Gabapentin 300 MG CAP PO SCH ×3 (08:29→20:36)
[2020-05-18] MEDS: Sulfameth/Trimethoprim DS 800-160mg TAB PO SCH ×2 (08:30→20:37)
--- NOTE | 2020-05-18 16:00 | PRG ---
DATE OF SERVICE: 05/18/2020 SUBJECTIVE: Mr. Wells is up in his wheelchair. He denies any questions or concerns. He is enjoying his weekend. Discussed with Nursing. OBJECTIVE: VITAL SIGNS: He is afebrile, heart rate 70, respirations 18, oxygen saturation 94% on room air, blood pressure 96/46. CARDIOVASCULAR: S1 and S2 plus. RESPIRATORY: Normal vesicular breath sounds. ABDOMEN: Soft and nontender. Bowel sounds heard in all quadrants. EXTREMITIES: Without cyanosis or clubbing. Chronic venous insufficiency with stasis dermatitis. CENTRAL NERVOUS SYSTEM: Grossly nonfocal. IMPRESSION: 1. End-stage renal disease, on hemodialysis. 2. Right foot osteomyelitis, status post amputation of his toe. 3. Peripheral vascular disease. 4. Hypertension. 5. Dyslipidemia. 6. Peripheral neuropathy. PLAN: 1. Continue current medications. 2. Nutritional support with 1800-calorie heart healthy ADA renal diet. 3. Accu-Cheks with sliding scale coverage. 4. Hemodialysis. 5. Wound care. 6. Routine laboratory values. 7. Physical therapy. 8. Discussed with the patient in detail and all questions answered. Job ID: [id number]
[2020-05-18] MEDS: traMADol HCl 50 MG TAB PO PRN (16:16)
[2020-05-18] MEDS: rOPINIRole HCl 1 MG TAB PO SCH (20:37)
[2020-05-19] MEDS: traMADol HCl 50 MG TAB PO PRN ×2 (05:27→20:16)
[2020-05-19] MEDS: Levothyroxine Sodium 25 MCG TAB PO SCH (05:27)
[2020-05-19 06:33] VITALS: BMI 49.2
[2020-05-19] MEDS: Aspirin 81 mg Enteric Coated Tablet PO SCH (08:24)
[2020-05-19] MEDS: Calcium Acetate 667 MG CAP PO SCH ×3 (08:24→17:18)
[2020-05-19] MEDS: Atorvastatin Calcium 20 MG TAB PO SCH (08:24)
[2020-05-19] MEDS: Midodrine HCl 5 MG TAB PO SCH ×2 (08:24→17:18)
[2020-05-19] MEDS: Clopidogrel Bisulfate 75 MG TAB PO SCH (08:24)
[2020-05-19] MEDS: Gabapentin 300 MG CAP PO SCH ×3 (08:25→20:15)
[2020-05-19] MEDS: Folic Acid/Vit B Comp W-C PO SCH (08:25)
[2020-05-19] MEDS: Fluticasone Propionate Nasal Spray 16 gm Bottle NASAL SCH (08:25)
[2020-05-19] MEDS: HumuLIN 70/30 (300 UNITS/3 ML VIAL) SC SCH ×2 (08:25→20:16)
[2020-05-19] MEDS: Sulfameth/Trimethoprim DS 800-160mg TAB PO SCH ×2 (08:26→20:15)
--- NOTE | 2020-05-19 14:30 | PRG ---
DATE OF SERVICE: 05/19/2020 SUBJECTIVE: Mr. Wells is up in his wheelchair and moving around in the hallways. He denies any questions or concerns. He is happy with his progress. Discussed with nursing. OBJECTIVE: VITAL SIGNS: He is afebrile. Heart rate 75, respirations 18, oxygen saturation 98% on room air, blood pressure 111/49. CARDIOVASCULAR: S1 and S2 plus. RESPIRATORY: Normal vesicular breath sounds. ABDOMEN: Soft, nontender. Bowel sounds heard in all quadrants. EXTREMITIES: Without cyanosis or clubbing. Does show chronic venous insufficiency with stasis dermatitis. CENTRAL NERVOUS SYSTEM: Grossly nonfocal. IMPRESSION: 1. Right foot osteomyelitis, status post amputation of his toes. 2. Diabetes mellitus type 2. 3. Peripheral vascular disease. 4. End-stage renal disease. 5. Hypertension. 6. Obesity. 7. Chronic venous insufficiency. 8. Deconditioning. PLAN: 1. Continue current medications. 2. 1800 calorie heart healthy ADA renal diet. 3. Accu-Cheks with sliding scale coverage. 4. DVT prophylaxis. 5. Decubitus precautions. 6. Stress ulcer prophylaxis. 7. Wound care. 8. Physical therapy. 9. Routine laboratory values. 10. Dr. Deejay devries. Job ID: [id number]
[2020-05-19] MEDS: rOPINIRole HCl 1 MG TAB PO SCH (20:15)
[2020-05-20] MEDS: Levothyroxine Sodium 25 MCG TAB PO SCH (05:13)
[2020-05-20] MEDS: Midodrine HCl 5 MG TAB PO SCH ×2 (08:15→16:10)
[2020-05-20] MEDS: Folic Acid/Vit B Comp W-C PO SCH (08:15)
[2020-05-20] MEDS: Sulfameth/Trimethoprim DS 800-160mg TAB PO SCH ×2 (08:16→20:49)
[2020-05-20] MEDS: Gabapentin 300 MG CAP PO SCH ×3 (08:16→20:49)
[2020-05-20] MEDS: Atorvastatin Calcium 20 MG TAB PO SCH (08:16)
[2020-05-20] MEDS: Calcium Acetate 667 MG CAP PO SCH ×3 (08:16→16:10)
[2020-05-20] MEDS: Clopidogrel Bisulfate 75 MG TAB PO SCH (08:16)
[2020-05-20] MEDS: Aspirin 81 mg Enteric Coated Tablet PO SCH (08:16)
[2020-05-20] MEDS: HumuLIN 70/30 (300 UNITS/3 ML VIAL) SC SCH ×2 (08:16→20:49)
[2020-05-20] MEDS: Fluticasone Propionate Nasal Spray 16 gm Bottle NASAL SCH (08:21)
--- NOTE | 2020-05-20 10:21 | PRG ---
DATE OF SERVICE: 05/20/2020 SUBJECTIVE: Mr. Wells is a well-developed 64-year-old black male. Seen in the emergency room, and determined to have sepsis secondary to severe peripheral vascular disease and gangrene of the fourth right toe and gangrene of the right great toe. Consumer Safety Officer, Dr. Shwetha Fisher, did an amputation of the fourth right toe and partial amputation of the right great toe. Dr. Babcock did a superior femoral artery stent because femoral artery was occluded. Postoperatively, the patient did fairly well, and transferred to [facility] for PT and OT and pain management. The patient is doing well on his way to dialysis this morning. I did discuss with therapy, and they think that he is actually doing well, and he has reached maximal therapy benefits at this time. OBJECTIVE: VITAL SIGNS: Today, blood pressure 122/92, pulse 75 to 78, respirations 18, O2 saturation 95% to 96% on room air, T-max 98.6. GENERAL: This is a well-developed, slightly obese black male, in no apparent distress at this time. HEENT: Normocephalic and nontraumatic cranium. Pupils are equally round and reactive. Extraocular movements are intact. Nose and throat are slightly dry. NECK: Supple without masses, nodes, or bruits. CHEST: Clear to auscultation. No rales, rhonchi, wheezes, or cough heard. HEART: Regular rate and rhythm without murmurs, gallops, or rubs. ABDOMEN: Obese, soft, nontender without organomegaly. Normal bowel sounds are noted in all 4 quadrants. No rebound or guarding is noted. : Deferred. EXTREMITIES: No clubbing, cyanosis, or edema. LABORATORY DATA: This morning, sugars at 88 fasting this morning, last night was 169, yesterday morning fasting was 80. ASSESSMENT: 1. Severe peripheral vascular disease with poor wound healing. 2. Gangrene of the right great toe, requiring amputation of the fourth right toe and partial amputation of the right great toe. 3. Hypertension with hypotensive orthostasis mainly after dialysis. 4. Diabetes, fairly well controlled. 5. End-stage renal disease, on dialysis Wednesday, Wednesday, Wednesday. 6. Percutaneous luminal angioplasty and stent placement by Dr. Babcock in the right superficial femoral artery. 7. Chronic lymphedema. 8. Hyperlipidemia. 9. Peripheral neuropathy. 10. Generalized deconditioning. 11. Generalized weakness. PLAN: 1. Continue followup care with Dr. Fisher. 2. Hemodialysis Wednesday, Wednesday, Wednesday. 3. Continue to follow the patient's blood pressure closely, watch orthostasis. 4. Continue to monitor the patient's diabetes with Accu-Cheks a.c. and at bedtime. 5. Stress ulcer prophylaxis. 6. Generalized pain management. 7. Decubitus precautions. 8. Continue PT and OT. 9. See Dr. Fisher in about 2 weeks. Job ID: [id number]
[2020-05-20] MEDS: rOPINIRole HCl 1 MG TAB PO SCH (20:49)
[2020-05-20] MEDS: traMADol HCl 50 MG TAB PO PRN (21:23)
[2020-05-21] MEDS: Levothyroxine Sodium 25 MCG TAB PO SCH (06:00)
[2020-05-21] MEDS: HumuLIN 70/30 (300 UNITS/3 ML VIAL) SC SCH ×2 (08:42→20:56)
[2020-05-21] MEDS: Gabapentin 300 MG CAP PO SCH ×3 (08:43→20:56)
[2020-05-21] MEDS: Calcium Acetate 667 MG CAP PO SCH ×3 (08:43→17:17)
[2020-05-21] MEDS: Atorvastatin Calcium 20 MG TAB PO SCH (08:43)
[2020-05-21] MEDS: Sulfameth/Trimethoprim DS 800-160mg TAB PO SCH (08:43)
[2020-05-21] MEDS: Aspirin 81 mg Enteric Coated Tablet PO SCH (08:43)
[2020-05-21] MEDS: Clopidogrel Bisulfate 75 MG TAB PO SCH (08:43)
[2020-05-21] MEDS: Midodrine HCl 5 MG TAB PO SCH ×2 (08:43→17:17)
[2020-05-21] MEDS: Folic Acid/Vit B Comp W-C PO SCH (08:43)
[2020-05-21] MEDS: Fluticasone Propionate Nasal Spray 16 gm Bottle NASAL SCH (08:47)
--- NOTE | 2020-05-21 10:37 | PRG ---
DATE OF SERVICE: 05/21/2020 SUBJECTIVE: Mr. Wells is a 64-year-old black male, seen in course in emergency room with sepsis. It was coming from gangrene of the right great toe and gangrene of the right fourth toe. The right fourth toe was amputated, and partial amputation of the right great toe was done by Dr. Shwetha Fisher. Unfortunately, he had significant problems with peripheral vascular disease, and Dr. Babcock did a superior femoral artery stent, which did help. Postoperatively, the patient did fairly well. He was transferred to [facility] for PT, OT, and pain management. He is gradually getting better and reached the maximum medical benefit. We are doing discharge planning, and will most likely discharge him on . He does have a therapy today, and he does have dialysis tomorrow, so we will discharge him morning. He will go home on his present medications, and he will get transportation made. He will see Dr. Fisher on May 28, and he will need to see Dr. Charles Bowles, hand specialist, for his right hand index finger, which looks like it has a very poor circulatory supply and possibly osteo also. We did discuss this in detail with the patient. He understands that he needs to go see these two doctors. OBJECTIVE: VITAL SIGNS: Today blood pressure 100/46, pulse 71 to 76, respirations 18 to 20, O2 saturation 98% on room air, and T-max 97.1. GENERAL: This is a well-developed, well-nourished, very pleasant, obese 64-year -old black male, in no apparent distress at this time. HEENT: Normocephalic and nontraumatic cranium. Pupils are equal, round, and reactive. Extraocular movements are intact. Nose and throat are slightly dry, but clear. NECK: Supple without masses, nodes, or bruits. CHEST: Clear to auscultation. No rales, rhonchi, wheezes, or cough are heard. HEART: Regular rate and rhythm without murmurs, gallops, or rubs. ABDOMEN: Obese, soft, and nontender. Normal bowel sounds noted in all 4 quadrants. No rebound or guarding is noted. : Deferred. EXTREMITIES: No clubbing, cyanosis, or edema. The patient still has his right foot in an ankle foot immobilizer. The patient also has his right index finger looks like he has chronic pain and chronically inflamed. ASSESSMENT: 1. Severe peripheral vascular disease with poor wound healing. 2. Gangrene of right great toe requiring amputation and of the fourth right toe requiring amputation. 3. Hypertension with hypertensive orthostasis, typically after dialysis, which occurred yesterday. 4. Diabetes, fairly well controlled. 5. End-stage renal disease, on dialysis Wednesday, Wednesday, Wednesday. 6. Percutaneous lumen angioplasty and stent placement by Dr. Babcock in the right superficial femoral artery. 7. Chronic lymphedema. 8. Hyperlipidemia. 9. Peripheral neuropathy. 10. Generalized weakness. PLAN: 1. Discharge planning for discharge on morning. 2. The patient will have dialysis tomorrow morning. 3. Continue to follow the patient's blood pressure closely. Watch for orthostasis. 4. Continue to monitor the patient's diabetes with Accu-Cheks a.c. and at bedtime. 5. Stress ulcer prophylaxis. 6. Pain management. 7. Decubitus precautions. 8. Physical therapy and occupational therapy. 9. See Dr. Fisher on the , which is a week from today. 10. I did discuss with Zandra, the protective services case worker, about getting an appointment with Dr. Charles Bowles for Mr. Wells's right index finger. Job ID: [id number]
[2020-05-21] MEDS: rOPINIRole HCl 1 MG TAB PO SCH (20:56)
[2020-05-22] MEDS: Levothyroxine Sodium 25 MCG TAB PO SCH (05:53)
[2020-05-22] MEDS: Calcium Acetate 667 MG CAP PO SCH ×3 (08:18→17:02)
[2020-05-22] MEDS: Atorvastatin Calcium 20 MG TAB PO SCH (08:19)
[2020-05-22] MEDS: Aspirin 81 mg Enteric Coated Tablet PO SCH (08:19)
[2020-05-22] MEDS: Midodrine HCl 5 MG TAB PO SCH ×2 (08:19→17:02)
[2020-05-22] MEDS: HumuLIN 70/30 (300 UNITS/3 ML VIAL) SC SCH ×2 (08:20→20:55)
[2020-05-22] MEDS: Gabapentin 300 MG CAP PO SCH ×3 (08:20→20:55)
[2020-05-22] MEDS: Fluticasone Propionate Nasal Spray 16 gm Bottle NASAL SCH (08:20)
[2020-05-22] MEDS: Clopidogrel Bisulfate 75 MG TAB PO SCH (08:20)
[2020-05-22] MEDS: Folic Acid/Vit B Comp W-C PO SCH (08:20)
[2020-05-22] MEDS: traMADol HCl 50 MG TAB PO PRN ×2 (08:21→20:54)
[2020-05-22] MEDS: rOPINIRole HCl 1 MG TAB PO SCH (20:55)
[2020-05-23] MEDS: Levothyroxine Sodium 25 MCG TAB PO SCH (05:26)
[2020-05-23 08:08] VITALS: TEMP 96.6
[2020-05-23] MEDS: Calcium Acetate 667 MG CAP PO SCH ×2 (08:49→12:29)
[2020-05-23] MEDS: Midodrine HCl 5 MG TAB PO SCH (08:49)
[2020-05-23] MEDS: Aspirin 81 mg Enteric Coated Tablet PO SCH (08:50)
[2020-05-23] MEDS: Atorvastatin Calcium 20 MG TAB PO SCH (08:50)
[2020-05-23] MEDS: Fluticasone Propionate Nasal Spray 16 gm Bottle NASAL SCH (08:50)
[2020-05-23] MEDS: Clopidogrel Bisulfate 75 MG TAB PO SCH (08:50)
[2020-05-23] MEDS: Gabapentin 300 MG CAP PO SCH (08:51)
[2020-05-23] MEDS: Folic Acid/Vit B Comp W-C PO SCH (08:51)
[2020-05-23] MEDS: HumuLIN 70/30 (300 UNITS/3 ML VIAL) SC SCH (08:52)
[2020-05-23 11:23] VITALS: BP 124/60
--- NOTE | 2020-05-23 14:01 | DIS ---
DATE OF ADMISSION: 04/17/2020 DATE OF DISCHARGE: 05/23/2020 HISTORY: Mr. Wells is a well-developed, well-nourished 64-year-old black male, who went to the emergency room because he felt nauseated and really weak. Unfortunately, he was septic from a gangrenous 4th right toe and partial gangrenous right great toe. He was taken to surgical suite by Dr. Shwetha Fisher who amputated his fourth right toe and did a partial amputation of his right great toe. He also was noted to have significant peripheral vascular disease and Dr. Babcock took him his surgical suite into the superficial femoral artery stent which did help his circulation. Postoperatively, the patient has done only fair. He continues to have poor circulation there, but Dr. Rosales did see him a week and a half ago, and he was supposed to see him next Wednesday. Unfortunately, he has reached maximum medical benefit and maximum therapy benefit in the hospital swing bed and he is ready for discharge. He is being discharged today to home and his caregivers. PHYSICAL EXAMINATION: VITAL SIGNS: This morning, reveal blood pressure 124/60, pulse 70 to 72, respirations 18 to 20, O2 saturation 92% to 99% on room air, and T-max 97.3. GENERAL: This is a well-developed, well-nourished, very pleasant 64-year-old black male who is in no apparent distress. He states he is ready to go home and sleep in his own bed. HEENT: Reveals normocephalic and nontraumatic cranium. Pupils equally round and reactive. Extraocular movements are intact. Nose and throat are slightly dry, but clear. NECK: Supple without masses, nodes, or bruits. CHEST: Clear to auscultation. No rales, rhonchi, wheezes, or cough are heard. HEART: Reveals a regular rate and rhythm without murmurs, gallops, or rubs. ABDOMEN: Obese, soft, and nontender. Normal bowel sounds are noted in all 4 quadrants. No rebound or guarding is noted. No CVA tenderness is noted. : Exam is deferred. EXTREMITIES: Reveal no clubbing, cyanosis, or edema. The patient still has right foot and ankle immobilizer. The wound VAC has been removed. The patient is getting wound care to his right great toe and his right fourth toe, which was amputated. He has no concerns of pain, but he has occasional pain for which he treats with a Tylenol once or twice a day. LABORATORY DATA: His fasting sugar this morning was 81. His sugar last night was 137 and his fasting sugar yesterday morning was 126. He continues to have dialysis on Wednesday, Wednesday, Wednesday. ASSESSMENT: 1. Severe peripheral vascular disease with poor wound healing. 2. Gangrene, right great toe, requiring amputation and the 4th right toe, requiring amputation. 3. Hypertension with hypertensive orthostasis, typically after dialysis. 4. Diabetes, fairly well controlled. 5. End-stage renal disease, on hemodialysis Wednesday, Wednesday, Wednesday. 6. Peripheral vascular disease, status post percutaneous luminal angioplasty and stent placement by Dr. Babcock in the right superficial femoral artery. 7. Chronic lymphedema. 8. Hyperlipidemia. 9. Peripheral vascular disease. 10. Peripheral neuropathy. 11. Generalized weakness. PLAN: 1. The patient will be discharged today. 2. The patient is to follow up with Dr. Fisher on Wednesday. He also is to follow up I believe with Dr. Babcock on . He has no other concerns or complaints. 3. The patient will continue dialysis on Wednesday, Wednesday, Wednesday. 4. Continue to monitor the patient's blood pressure via home health and watch for orthostasis, particularly after his dialysis. 5. Monitor the patient's diabetes with Accu-Cheks a.c. and at bedtime. 6. Stress ulcer prophylaxis. 7. Pain management with tramadol p.r.n. 8. Decubitus precautions. 9. Continue outpatient physical therapy. 10. The patient will see Dr. Bowles also on , which I believe is the th to review his right index finger, which continues to have possible osteomyelitis, but may require amputation also by Dr. Bowles. DISCHARGE MEDICATIONS: Include the followin. Aspirin 81 mg daily. 2. Atorvastatin 20 mg q.day. 3. PhosLo 667 mg three times a day with meals. 4. Plavix 75 mg a day. 5. Flonase p.r.n. daily. 6. Gabapentin 300 mg t.i.d. 7. Insulin 70/30 b.i.d. 8. Levothyroxine 25 mcg daily. 9. Midodrine 10 mg b.i.d. 10. Protonix 40 mg daily. 11. Requip 3 mg at bedtime. 12. Tramadol 50 mg q.6 hours, not to exceed 2 or 3 in a day. 13. Vitamin B complex. Job ID: [id number] MTDD
== END 2020-05-23 13:00 | disposition home health service (06) | DRG 299 ==
LOC: NAV ACUTE 19:54
PROVIDERS: ADMIT Family Medicine; ATTEND Family Medicine
DX: E11.52 Type 2 diabetes mellitus with diabetic peripheral angiopathy with gangrene (principal); N18.6 End stage renal disease; I96 Gangrene, not elsewhere classified; I12.0 Hypertensive chronic kidney disease with stage 5 chronic kidney disease or end stage renal disease; Z68.42 Body mass index [BMI] 45.0-49.9, adult; E11.22 Type 2 diabetes mellitus with diabetic chronic kidney disease; I89.0 Lymphedema, not elsewhere classified; E78.5 Hyperlipidemia, unspecified; E11.42 Type 2 diabetes mellitus with diabetic polyneuropathy; E66.9 Obesity, unspecified; Z79.4 Long term (current) use of insulin; Z95.0 Presence of cardiac pacemaker; Z90.49 Acquired absence of other specified parts of digestive tract; Z89.421 Acquired absence of other right toe(s); Z87.891 Personal history of nicotine dependence; Z88.0 Allergy status to penicillin
CPT/HCPCS: 36416; 70450; 80053; 83605; 85025; 86140; 87070; 87077; 87186; 87205; 97602; 36415-59; J1815

== ENCOUNTER 2020-11-13 16:32 | Inpatient (IN) | payer MEDICARE ==
[2020-11-13 16:47] VITALS: BMI 50.6
[2020-11-13] MEDS ORDERED: Vancomycin HCl 750 MG VIAL IVPB PRN (18:06)
[2020-11-13] MEDS ORDERED: Vancomycin HCl 750 MG in Sodium Chloride 0.9% 250 ML 250 ML IVPB PRN (18:08)
[2020-11-13] MEDS ORDERED: Levothyroxine Sodium 25 MCG TAB PO SCH ×2 (18:15)
[2020-11-13] MEDS ORDERED: Non-Formulary Item 1 EACH (Midodrine Hcl [Midodrine Hcl] 10 MG Tablet) PO SCH (21:00)
[2020-11-13] MEDS ORDERED: Gabapentin 300 MG CAP PO SCH (21:00)
[2020-11-13] MEDS ORDERED: HumuLIN 70/30 (300 UNITS/3 ML VIAL) SC SCH (21:00)
[2020-11-13] MEDS ORDERED: Atorvastatin Calcium 20 MG TAB PO SCH (21:00)
[2020-11-13] MEDS ORDERED: Non-Formulary Item 1 EACH (Calcium Acetate [Calcium Acetate] 667 MG Tablet) PO SCH (21:00)
[2020-11-13] MEDS: Gabapentin 300 MG CAP PO SCH (21:26)
[2020-11-13] MEDS: Midodrine HCl 5 MG TAB PO SCH (21:26)
[2020-11-13] MEDS: rOPINIRole HCl 1 MG TAB PO SCH (21:26)
[2020-11-13] MEDS: HumuLIN 70/30 (300 UNITS/3 ML VIAL) SC SCH (21:27)
[2020-11-13] MEDS: Atorvastatin Calcium 20 MG TAB PO SCH (21:27)
[2020-11-14 05:51] LABS: #Basophils 0.1 thou/uL (0.0-0.2); #Eosinphils 0.3 thou/uL (0.0-0.7); #Lymphocytes 1.6 thou/uL (1.20-3.40); #Monocytes 0.8 thou/uL (0.11-0.59); #Neutrophils 6.1 thou/uL (1.40-6.50); %Basophils 1.3 % (0.0-1.0); %Eosinophils 3.1 % (0.0-10.0); %Lymphocytes 17.7 % (21.0-51.0); %Neutrophils 68.9 % (42.0-75.0); Hemoglobin 10.3 g/dL (14.0-18.0); Mean Corpuscular HGB CONC 30.2 g/dL (32.0-36.0); Mean Corpuscular Hemoglobin 25.9 pg (27.0-31.0); Mean Corpuscular Volume 85.7 fL (78.0-98.0); Mean Platelet Volume 6.7 fL (7.4-10.4); Platelet Count 268 thou/uL (130-400); RBC Distribution Width 17.1 % (11.5-14.5); Red Blood Cell (RBC) Count 3.97 mill/uL (4.70-6.10); White Blood Cell (WBC) Count 8.8 thou/uL (4.8-10.8)
[2020-11-14 05:55] LABS: ALT (SGPT) 10 U/L (8-55); AST (SGOT) 13 U/L (5-34); Albumin 3.1 g/dL (3.4-4.8); Alkaline Phosphatase 73 U/L (40-110); Anion Gap 25 mmol/L (10-20); BUN (Urea Nitrogen) 84 mg/dL (8.4-25.7); Bilirubin, Total 0.3 mg/dL (0.2-1.2); Calc. Creatinine Clearance 13 mL/min (70-130); Carbon Dioxide 16 mmol/L (23-31); Chloride 96 mmol/L (98-107); Glucose 85 mg/dL (80-115); Potassium 4.5 mmol/L (3.5-5.1); Protein, Total 7.1 g/dL (5.8-8.1); Sodium 132 mmol/L (136-145)
[2020-11-14] MEDS ORDERED: Aspirin 81 mg Enteric Coated Tablet PO SCH (09:00)
[2020-11-14] MEDS ORDERED: RENAPLEX D PO SCH (09:00)
[2020-11-14] MEDS ORDERED: Fluticasone Propionate Nasal Spray 16 gm Bottle NASAL SCH (09:00)
[2020-11-14] MEDS ORDERED: Clopidogrel Bisulfate 75 MG TAB PO SCH (09:00)
[2020-11-14] MEDS: Gabapentin 300 MG CAP PO SCH ×3 (12:08→21:15)
[2020-11-14] MEDS: Calcium Acetate 667 MG CAP PO SCH ×3 (12:08→17:09)
[2020-11-14] MEDS: HumuLIN 70/30 (300 UNITS/3 ML VIAL) SC SCH ×2 (12:09→21:22)
[2020-11-14] MEDS: Midodrine HCl 5 MG TAB PO SCH ×2 (12:10→21:17)
[2020-11-14] MEDS: Fluticasone Propionate Nasal Spray 16 gm Bottle NASAL SCH (13:09)
[2020-11-14] MEDS: Clopidogrel Bisulfate 75 MG TAB PO SCH (13:11)
[2020-11-14] MEDS: Aspirin 81 mg Enteric Coated Tablet PO SCH (13:11)
[2020-11-14] MEDS: Folic Acid/Vit B Comp W-C PO SCH (13:11)
--- NOTE | 2020-11-14 19:14 | PRG ---
DATE OF SERVICE: 11/14/2020 SUBJECTIVE: The patient is sitting up in the chair, has returned from dialysis. States he feels better, was able do some therapy today, although did have some diarrhea this morning. He is due to have dialysis again tomorrow, so he would get back on his routine schedule of Wednesday, Wednesday, Wednesday. He is having no dyspnea, shortness of breath or chest pain. OBJECTIVE: Temperature 97.8, pulse 64, respiration 19, O2 sats 94% on room air, blood pressure 138/77. Blood pressure does decrease to 80/45 on standing, requiring midodrine. LABORATORY DATA: Show white count 8800, hematocrit 34, hemoglobin 10, sodium 132, potassium 4.5, chloride 96, bicarb 16, BUN 84, creatinine 12.37, albumin 3.1. ASSESSMENT: 1. Resolving osteomyelitis of the right foot, on vancomycin at dialysis, 42 days, and Levaquin 250 daily, 42 days. 2. Deconditioning with orthostatic hypotension, improving with therapy. 3. End-stage renal disease, on hemodialysis three times weekly. 4. Diastolic heart failure, compensated. 5. Hypertension, controlled to goal. 6. Diabetes type 2, controlled to goal. PLAN: 1. Continue PT/OT. 2. Continue wound care. 3. Continue hemodialysis three times weekly. 4. Continue IV vancomycin with dialysis and continue Levaquin 250 mg daily for 42 days. Job ID: [id number]
--- NOTE | 2020-11-14 19:58 | HP ---
HISTORY OF PRESENT ILLNESS: The patient is a 64-year-old black male, well known with a history of hypertension; type 2 diabetes; end-stage renal disease, on hemodialysis, who has been found to have osteomyelitis of the right foot, fourth and fifth metatarsals, and first phalanx of the great toe. He was seen by Surgery, but Surgery recommended 42 days of IV vancomycin and oral Levaquin, and a wound VAC after debridement by Dr. Bhatt. He has had Podiatry removed his right fourth toe early this year and his fifth toe has autoamputated. He does have morbid obesity, peripheral vascular disease, but has been able to transfer from bed to chair prior to the acute episode of osteomyelitis with sepsis. He is undergoing dialysis 3 times weekly and needs transportation and also needs physical therapy, and will be admitted for these conditions. PAST MEDICAL HISTORY: Positive for end-stage renal disease, diabetes type 2, hypertension, hyperlipidemia, peripheral vascular disease, tachycardia-bradycardia syndrome status post pacemaker, morbid obesity. PAST SURGICAL HISTORY: Positive for pacemaker placement, cholecystectomy, AV fistula. ALLERGIES: HE IS ALLERGIC TO PENICILLIN. SOCIAL HISTORY: He is a nonsmoker, nondrinker. REVIEW OF SYSTEMS: HEENT: Denies headaches, dizziness, change in vision or hearing, hoarseness, or dysphagia. PULMONARY: Denies cough, sputum production, pneumonia, asthma, tuberculosis. CARDIOVASCULAR: He denies chest pain, orthopnea, paroxysmal nocturnal dyspnea, or edema. GASTROINTESTINAL: He denies nausea, vomiting, diarrhea, constipation, or abdominal pain. GENITOURINARY: Denies dysuria, hematuria, nocturia. Has minimal decreased urine output. SKIN/EXTREMITIES: Complain of pain in his right foot. PHYSICAL EXAMINATION: GENERAL: The patient is an elderly obese black male, in no acute distress. Oriented x3 and cooperative. VITAL SIGNS: Show him to have blood pressure of 90/50, temperature is 97.8, pulse 67, respirations 20, O2 saturation is 95% on room air. HEENT: Pupils are equal, round, and reactive to light and accommodation. Sclerae anicteric. Conjunctivae are pale. Oral mucous membranes well hydrated. 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 He has poor sight in the left eye. NECK: Supple. There are no nodes or masses. JVP is not elevated. LUNGS: Clear. CARDIAC: Regular rhythm. No gallops or murmurs. ABDOMEN: Obese, nontender. No masses or organomegaly or fluid wave. SKIN/EXTREMITIES: Show wound VAC on the right and left foot, decreased pedal pulses. LABORATORY DATA: Showed a white count of 9900, hematocrit 31, hemoglobin 9. Sodium is 133, potassium 4.4, chloride 96, bicarb 21, BUN 69, creatinine 10.56, glucose 129, PT 11, INR 1.1. Vancomycin random level 14.9. ASSESSMENT: 1. Osteomyelitis of the right lateral foot. 2. Type 2 diabetes. 3. End-stage renal disease, on hemodialysis 3 times weekly. 4. Severe peripheral vascular disease. 5. Lymphedema of both legs. PLAN: 1. Continue hemodialysis 3 times weekly with 750 mg of vancomycin after dialysis. 2. Levaquin 250 mg daily, both for 42 days complete from start of therapy. 3. PT/OT. 4. Wound care. 5. Accu-Cheks to monitor and titrate, and control diabetes. 6. Monitor vital signs closely with therapy for orthostasis and continue midodrine 10 mg twice daily. Job ID: [id number]
[2020-11-14] MEDS: rOPINIRole HCl 1 MG TAB PO SCH (21:15)
[2020-11-14] MEDS: Atorvastatin Calcium 20 MG TAB PO SCH (21:15)
[2020-11-15] MEDS: HumuLIN 70/30 (300 UNITS/3 ML VIAL) SC SCH ×2 (08:21→21:38)
[2020-11-15] MEDS: Fluticasone Propionate Nasal Spray 16 gm Bottle NASAL SCH (08:22)
[2020-11-15] MEDS: Calcium Acetate 667 MG CAP PO SCH ×3 (08:23→17:19)
[2020-11-15] MEDS: Aspirin 81 mg Enteric Coated Tablet PO SCH (08:23)
[2020-11-15] MEDS: Gabapentin 300 MG CAP PO SCH ×3 (08:23→21:36)
[2020-11-15] MEDS: Clopidogrel Bisulfate 75 MG TAB PO SCH (08:23)
[2020-11-15] MEDS: Midodrine HCl 5 MG TAB PO SCH ×2 (08:23→21:36)
[2020-11-15] MEDS: Folic Acid/Vit B Comp W-C PO SCH (08:25)
[2020-11-15] MEDS: rOPINIRole HCl 1 MG TAB PO SCH (21:36)
[2020-11-15] MEDS: Atorvastatin Calcium 20 MG TAB PO SCH (21:36)
[2020-11-16] MEDS: Midodrine HCl 5 MG TAB PO SCH ×2 (07:53→20:42)
[2020-11-16] MEDS: Calcium Acetate 667 MG CAP PO SCH ×3 (08:53→16:23)
[2020-11-16] MEDS: Aspirin 81 mg Enteric Coated Tablet PO SCH (08:54)
[2020-11-16] MEDS: Clopidogrel Bisulfate 75 MG TAB PO SCH (08:54)
[2020-11-16] MEDS: Folic Acid/Vit B Comp W-C PO SCH (08:54)
[2020-11-16] MEDS: Gabapentin 300 MG CAP PO SCH ×3 (08:54→20:42)
[2020-11-16] MEDS: Fluticasone Propionate Nasal Spray 16 gm Bottle NASAL SCH (08:55)
[2020-11-16] MEDS: HumuLIN 70/30 (300 UNITS/3 ML VIAL) SC SCH ×2 (09:00→20:41)
--- NOTE | 2020-11-16 09:41 | PRG ---
DATE OF SERVICE: 11/15/2020 SUBJECTIVE: The patient is returning from dialysis where he has received his IV vancomycin. He is continued on his oral Levaquin and has wound VAC and he is having no problems with his osteomyelitis of the right 4th and 5th metatarsals. He is eating well and is compliant to the diabetic diet. He is having no shortness of breath or chest pain. OBJECTIVE: VITAL SIGNS: Shows temperature is 95.9, pulse 79, respirations 20, O2 saturation 97% on room air, blood pressure is 97/54. LUNGS: Clear. CARDIAC: Shows regular rhythm. ABDOMEN: Soft and nontender. SKIN/EXTREMITIES: Right foot is bandaged. Not having any tenderness. NEUROLOGICAL: Shows decreased sensation. ASSESSMENT: 1. Resolving osteomyelitis. 2. Stable end-stage renal disease. 3. Stable type 2 diabetes. 4. Lymphedema, stable. PLAN: 1. Continue IV vancomycin at dialysis for 42 days. 2. Continue Levaquin. 3. Continue PT/OT. 4. Continue Accu-Cheks to monitor and titrate and control diabetes. Job ID: [id number]
[2020-11-16] MEDS: rOPINIRole HCl 1 MG TAB PO SCH (20:42)
[2020-11-16] MEDS: Atorvastatin Calcium 20 MG TAB PO SCH (20:42)
[2020-11-17] MEDS: Calcium Acetate 667 MG CAP PO SCH ×3 (08:06→16:29)
[2020-11-17] MEDS: Midodrine HCl 5 MG TAB PO SCH ×2 (08:06→21:00)
[2020-11-17] MEDS: Aspirin 81 mg Enteric Coated Tablet PO SCH (08:06)
[2020-11-17] MEDS: Fluticasone Propionate Nasal Spray 16 gm Bottle NASAL SCH (08:07)
[2020-11-17] MEDS: Folic Acid/Vit B Comp W-C PO SCH (08:07)
[2020-11-17] MEDS: Gabapentin 300 MG CAP PO SCH ×3 (08:07→21:01)
[2020-11-17] MEDS: Clopidogrel Bisulfate 75 MG TAB PO SCH (08:07)
[2020-11-17] MEDS: HumuLIN 70/30 (300 UNITS/3 ML VIAL) SC SCH ×2 (08:08→20:59)
--- NOTE | 2020-11-17 08:32 | PRG ---
DATE OF SERVICE: 11/16/2020 SUBJECTIVE: The patient is sitting up in a chair, feels well. No complaints. Has gone to dialysis. Received his vancomycin and is receiving his oral Levaquin. He is having his wound VAC care for a year, but states that he has [place] VAC at home and is wondering why he cannot be discharged home. He is compliant to his diabetic diet. Having no chest pain or shortness of breath. OBJECTIVE: VITAL SIGNS: Shows temperature is 96.7, pulse 77, respirations 18, O2 sats 98% on room air, blood pressure is 86/53. LUNGS: Clear. CARDIAC: Showed regular rhythm. ABDOMEN: Soft and nontender. Accu-Cheks ranged from 100 to 207. EXTREMITIES: Wound VAC functioning well on right foot. ASSESSMENT: 1. Resolving osteomyelitis, right foot, status post removal of 4th and 5th toes on IV vancomycin and oral Levaquin 42 days. 2. Stable type 2 diabetes. 3. Stable end-stage renal disease, on dialysis three times weekly. 4. Lymphedema, stable. PLAN: 1. Continue PT, OT and wound care and discuss with [place] VAC with Home Health. 2. Continue Accu-Cheks to monitor and titrate and control diabetes. 3. Continue oral Levaquin. 4. Continue IV vancomycin at dialysis. Job ID: [id number]
[2020-11-17] MEDS: rOPINIRole HCl 1 MG TAB PO SCH (21:01)
[2020-11-17] MEDS: Atorvastatin Calcium 20 MG TAB PO SCH (21:01)
[2020-11-18] MEDS: Fluticasone Propionate Nasal Spray 16 gm Bottle NASAL SCH (07:40)
[2020-11-18] MEDS: Gabapentin 300 MG CAP PO SCH ×3 (07:41→21:00)
[2020-11-18] MEDS: Calcium Acetate 667 MG CAP PO SCH ×3 (07:42→16:31)
[2020-11-18] MEDS: Clopidogrel Bisulfate 75 MG TAB PO SCH (07:42)
[2020-11-18] MEDS: Folic Acid/Vit B Comp W-C PO SCH (07:42)
[2020-11-18] MEDS: Aspirin 81 mg Enteric Coated Tablet PO SCH (07:43)
[2020-11-18] MEDS: Midodrine HCl 5 MG TAB PO SCH ×2 (07:43→21:01)
[2020-11-18] MEDS: HumuLIN 70/30 (300 UNITS/3 ML VIAL) SC SCH ×2 (07:48→21:00)
--- NOTE | 2020-11-18 09:12 | PRG ---
DATE OF SERVICE: 11/17/2020 SUBJECTIVE: The patient feels well, sitting up in the chair. States that his wound VAC is not having any drainage and in fact thinks it will be removed tomorrow. He is asking about discharge home as he has taken care of wound VAC at home and is able to transport himself to dialysis. He is receiving antibiotics at dialysis, IV vancomycin as well as oral Levaquin for total of 42 days. OBJECTIVE: VITAL SIGNS: Shows temperature is 97.3, pulse 72, respirations 20, O2 saturations 98% on room air, blood pressure 99/65. LUNGS: Clear. CARDIAC: Regular rhythm. ABDOMEN: Soft and nontender. Wound VAC is in place with minimal drainage in the VAC. ASSESSMENT: 1. Resolving osteomyelitis of the right foot on wound VAC and IV vancomycin and oral Levaquin for 42 days. 2. End-stage renal disease, on hemodialysis 3 times weekly, being followed by Dr. Dunn with vancomycin. 3. Type 2 diabetes, controlled to goal. PLAN: 1. Continue PT, OT and Wound Care and discussed [place] VAC with Home Health. 2. Continue Accu-Cheks to monitor and titrate and control diabetes. 3. Continue oral Levaquin for 42 days. 4. Continue IV vancomycin at dialysis 42 days. Job ID: [id number]
[2020-11-18 20:51] VITALS: BP 114/54
[2020-11-18] MEDS: Atorvastatin Calcium 20 MG TAB PO SCH (21:00)
[2020-11-18] MEDS: rOPINIRole HCl 1 MG TAB PO SCH (21:01)
[2020-11-19] MEDS: Fluticasone Propionate Nasal Spray 16 gm Bottle NASAL SCH (08:26)
[2020-11-19] MEDS: Aspirin 81 mg Enteric Coated Tablet PO SCH (08:40)
[2020-11-19] MEDS: Clopidogrel Bisulfate 75 MG TAB PO SCH (08:40)
[2020-11-19] MEDS: Gabapentin 300 MG CAP PO SCH (08:41)
[2020-11-19] MEDS: Midodrine HCl 5 MG TAB PO SCH (08:41)
[2020-11-19] MEDS: Calcium Acetate 667 MG CAP PO SCH ×2 (08:43→12:56)
[2020-11-19] MEDS: Folic Acid/Vit B Comp W-C PO SCH (08:43)
[2020-11-19] MEDS: HumuLIN 70/30 (300 UNITS/3 ML VIAL) SC SCH (09:25)
[2020-11-19 10:00] VITALS: TEMP 96.8
== END 2020-11-19 12:55 | disposition home health service (06) | DRG 638 ==
LOC: NAV ACUTE 16:32
PROVIDERS: ADMIT Internal Medicine; ATTEND Internal Medicine
DX: E11.69 Type 2 diabetes mellitus with other specified complication (principal); M86.8X7 Other osteomyelitis, ankle and foot; I50.32 Chronic diastolic (congestive) heart failure; I13.2 Hypertensive heart and chronic kidney disease with heart failure and with stage 5 chronic kidney disease, or end stage renal disease; N18.6 End stage renal disease; E11.22 Type 2 diabetes mellitus with diabetic chronic kidney disease; I73.9 Peripheral vascular disease, unspecified; E66.01 Morbid (severe) obesity due to excess calories; E78.5 Hyperlipidemia, unspecified; I95.1 Orthostatic hypotension; R53.81 Other malaise; Z99.2 Dependence on renal dialysis; Z90.49 Acquired absence of other specified parts of digestive tract; Z95.0 Presence of cardiac pacemaker; Z98.890 Other specified postprocedural states
CPT/HCPCS: 36416; 80053; 85025; 97602; J1815

== ENCOUNTER 2022-03-22 21:29 | Emergency (ER) | payer MEDICARE | END 2022-03-22 23:00 | disposition home or self-care (01) | LOC: NAV ERS 21:29 | DX: Z48.817 Encounter for surgical aftercare following surgery on the skin and subcutaneous tissue (principal); I13.2 Hypertensive heart and chronic kidney disease with heart failure and with stage 5 chronic kidney disease, or end stage renal disease; E11.22 Type 2 diabetes mellitus with diabetic chronic kidney disease; N18.6 End stage renal disease; I50.9 Heart failure, unspecified; E78.5 Hyperlipidemia, unspecified; E03.9 Hypothyroidism, unspecified; Z87.891 Personal history of nicotine dependence; Z95.0 Presence of cardiac pacemaker; Z79.4 Long term (current) use of insulin; Z79.899 Other long term (current) drug therapy | CPT/HCPCS: 99283 ==

== ENCOUNTER 2022-06-18 17:58 | Emergency (ER) | payer MEDICARE ==
[2022-06-18] MEDS ORDERED: Acetaminophen 500 MG TAB ONE (18:38)
[2022-06-18 18:45] LABS: Hemoglobin 11.7 g/dL (14.0-18.0); Mean Corpuscular HGB CONC 29.4 g/dL (32.0-36.0); Mean Corpuscular Hemoglobin 26.8 pg (27.0-31.0); Mean Corpuscular Volume 91.1 fL (78.0-98.0); Red Blood Cell (RBC) Count 4.36 mill/uL (4.70-6.10); White Blood Cell (WBC) Count 12.3 thou/uL (4.8-10.8)
[2022-06-18 18:46] LABS: #Basophils 0.1 thou/uL (0.0-0.2); #Eosinphils 0.1 thou/uL (0.0-0.7); #Lymphocytes 1.5 thou/uL (1.20-3.40); #Monocytes 0.8 thou/uL (0.11-0.59); #Neutrophils 9.8 thou/uL (1.40-6.50); %Basophils 0.5 % (0.0-1.0); %Eosinophils 0.8 % (0.0-10.0); %Monocytes 6.6 % (0.0-10.0); %Neutrophils 80.1 % (42.0-75.0); Manual Diff?? NO; Mean Platelet Volume 8.5 fL (7.4-10.4); Platelet Count 122 thou/uL (130-400); RBC Distribution Width 16.2 % (11.5-14.5)
[2022-06-18] MEDS ORDERED: Cefepime 1 GM VIAL ONE (18:46)
[2022-06-18] MEDS ORDERED: Sodium Chloride 0.9% 100 ML ONE (18:46)
[2022-06-18 19:01] LABS: ALT (SGPT) 20 U/L (8-55); AST (SGOT) 21 U/L (5-34); Albumin 3.6 g/dL (3.4-4.8); Alkaline Phosphatase 159 U/L (40-110); Anion Gap 19 mmol/L (10-20); BUN (Urea Nitrogen) 32 mg/dL (8.4-25.7); Bilirubin, Total 0.5 mg/dL (0.2-1.2); Calc. Creatinine Clearance 0 mL/min (70-130); Calcium 9.7 mg/dL (7.8-10.44); Carbon Dioxide 23 mmol/L (23-31); Chloride 103 mmol/L (98-107); Estimated GFR 11; Globulin 4.4 g/dL (2.4-3.5); Glucose 133 mg/dL (80-115); Potassium 4.8 mmol/L (3.5-5.1); Sodium 140 mmol/L (136-145)
[2022-06-18 19:30] LABS: SARS-CoV-2 NAA Rapid Test Not Detected (NotDetected)
[2022-06-18] MEDS ORDERED: Sodium Chloride 0.9% 500 ML ONE (19:30)
[2022-06-18] MEDS ORDERED: Sodium Chloride 0.9% 250 ML 250 ML ONE (19:39)
== END 2022-06-18 20:37 | disposition short-term general hospital (02) ==
LOC: NAV ERS 17:58
DX: A41.9 Sepsis, unspecified organism (principal); L03.115 Cellulitis of right lower limb; E11.621 Type 2 diabetes mellitus with foot ulcer; L97.419 Non-pressure chronic ulcer of right heel and midfoot with unspecified severity; I13.0 Hypertensive heart and chronic kidney disease with heart failure and stage 1 through stage 4 chronic kidney disease, or unspecified chronic kidney disease; E11.22 Type 2 diabetes mellitus with diabetic chronic kidney disease; N18.6 End stage renal disease; I50.9 Heart failure, unspecified; E78.5 Hyperlipidemia, unspecified; I25.10 Atherosclerotic heart disease of native coronary artery without angina pectoris; E03.9 Hypothyroidism, unspecified; F17.210 Nicotine dependence, cigarettes, uncomplicated; Z20.822 Contact with and (suspected) exposure to COVID-19; Z99.2 Dependence on renal dialysis; Z95.0 Presence of cardiac pacemaker; Z89.421 Acquired absence of other right toe(s); Z79.82 Long term (current) use of aspirin; Z79.4 Long term (current) use of insulin; Z79.899 Other long term (current) drug therapy
CPT/HCPCS: 51701; 71045; 80053; 83605; 85025; 87040; 94760; 96365; 96367; J0692; J3370; J3490; J7030; J7050; U0002

== ENCOUNTER 2022-09-13 20:59 | Emergency (ER) | payer MEDICARE ==
[2022-09-13 22:45] LABS: #Basophils 0.1 thou/uL (0.0-0.2); #Eosinphils 0.2 thou/uL (0.0-0.7); #Lymphocytes 1.8 thou/uL (1.20-3.40); #Monocytes 0.6 thou/uL (0.11-0.59); #Neutrophils 3.1 thou/uL (1.40-6.50); %Lymphocytes 32.3 % (21.0-51.0); %Monocytes 9.9 % (0.0-10.0); %Neutrophils 53.8 % (42.0-75.0); Hemoglobin 13.3 g/dL (14.0-18.0); Mean Corpuscular HGB CONC 31.2 g/dL (32.0-36.0); Mean Corpuscular Hemoglobin 28.2 pg (27.0-31.0); Mean Corpuscular Volume 90.5 fl (78.0-98.0); Platelet Count 131 thou/uL (130-400); RBC Distribution Width 13.8 % (11.5-14.5); Red Blood Cell (RBC) Count 4.71 mill/uL (4.70-6.10); White Blood Cell (WBC) Count 5.7 thou/uL (4.8-10.8)
[2022-09-13 22:57] LABS: Anion Gap 24 mmol/L (10-20); BUN (Urea Nitrogen) 69 mg/dL (8.4-25.7); Calc. Creatinine Clearance 0 mL/min (70-130); Calcium 9.1 mg/dL (7.8-10.44); Carbon Dioxide 25 mmol/L (23-31); Chloride 95 mmol/L (98-107); Estimated GFR 6; Glucose 164 mg/dL (80-115); Potassium 3.9 mmol/L (3.5-5.1); Sodium 140 mmol/L (136-145)
== END 2022-09-13 23:15 | disposition home or self-care (01) ==
LOC: NAV ERS 20:59
DX: R42 Dizziness and giddiness (principal); I13.2 Hypertensive heart and chronic kidney disease with heart failure and with stage 5 chronic kidney disease, or end stage renal disease; I50.9 Heart failure, unspecified; N18.6 End stage renal disease; E11.22 Type 2 diabetes mellitus with diabetic chronic kidney disease; F17.210 Nicotine dependence, cigarettes, uncomplicated; Z99.2 Dependence on renal dialysis; Z79.82 Long term (current) use of aspirin; Z79.899 Other long term (current) drug therapy
CPT/HCPCS: 70450; 80048; 85025

== ENCOUNTER 2024-05-02 13:32 | Emergency (ER) | payer MEDICARE | END 2024-05-02 14:55 | disposition home or self-care (01) | LOC: NAV ERS 13:32 | DX: H61.21 Impacted cerumen, right ear (principal); H73.91 Unspecified disorder of tympanic membrane, right ear; I13.2 Hypertensive heart and chronic kidney disease with heart failure and with stage 5 chronic kidney disease, or end stage renal disease; I50.9 Heart failure, unspecified; N18.6 End stage renal disease; F17.210 Nicotine dependence, cigarettes, uncomplicated; Z99.2 Dependence on renal dialysis | CPT/HCPCS: 99282 ==

== ENCOUNTER 2025-10-02 10:58 | Outpatient (CLI) | payer MEDICARE | END 2025-10-02 10:59 | disposition home or self-care (01) | LOC: NAV RAD 10:58 | PROVIDERS: ATTEND Family Medicine | DX: S61.001A Unspecified open wound of right thumb without damage to nail, initial encounter (principal); M79.89 Other specified soft tissue disorders ==

== ENCOUNTER 2025-10-12 16:22 | Emergency (ER) | payer MEDICARE ==
[2025-10-12 17:13] LABS: #Basophils 0.1 thou/uL (0.0-0.2); #Eosinophils 0.2 thou/uL (0.0-0.7); #Lymphocytes 1.5 thou/uL (1.20-3.40); #Monocytes 0.8 thou/uL (0.11-0.59); #Neutrophils 5.9 thou/uL (1.40-6.50); %Basophils 1.7 % (0.0-1.0); %Eosinophils 2.5 % (0.0-10.0); %Lymphocytes 17.8 % (21.0-51.0); %Monocytes 8.9 % (0.0-10.0); %Neutrophils 69.1 % (42.0-75.0); Hematocrit 33.4 % (42.0-52.0); Hemoglobin 10.6 g/dL (14.0-18.0); Mean Corpuscular Hemoglobin 26.7 pg (27.0-31.0); Mean Corpuscular Volume 84.2 fl (78.0-98.0); Platelet Count 230 10x3/uL (130-400); Red Blood Cell (RBC) Count 3.97 mill/uL (4.70-6.10); White Blood Cell (WBC) Count 8.6 10x3/uL (4.8-10.8)
[2025-10-12 17:49] LABS: ALT (SGPT) 11 U/L (Less than 45); AST (SGOT) 27 U/L (11-34); Albumin 3.2 g/dL (3.1-4.5); Alkaline Phosphatase 95 U/L (40-110); Anion Gap 20 mmol/L (10-20); BUN (Urea Nitrogen) 16 mg/dL (8.4-25.7); Bilirubin, Total 0.3 mg/dL (0.3-1.2); Calc. Creatinine Clearance 0 mL/min (70-130); Calcium 9.1 mg/dL (7.8-10.44); Carbon Dioxide 28 mmol/L (23-31); Chloride 94 mmol/L (98-107); Globulin 5.2 g/dL (2.4-3.5); Glucose 190 mg/dL (80-115); Potassium 3.4 mmol/L (3.5-5.1); Sodium 139 mmol/L (136-145)
[2025-10-12] MEDS ORDERED: Cefepime 2 GM VIAL ONE (18:33)
== END 2025-10-12 19:51 | disposition short-term general hospital (02) ==
LOC: NAV ERS 16:22
DX: M86.141 Other acute osteomyelitis, right hand (principal); E11.22 Type 2 diabetes mellitus with diabetic chronic kidney disease; I13.0 Hypertensive heart and chronic kidney disease with heart failure and stage 1 through stage 4 chronic kidney disease, or unspecified chronic kidney disease; I50.9 Heart failure, unspecified; N18.4 Chronic kidney disease, stage 4 (severe); F17.210 Nicotine dependence, cigarettes, uncomplicated; E03.9 Hypothyroidism, unspecified; Z99.2 Dependence on renal dialysis; Z79.899 Other long term (current) drug therapy; Z79.890 Hormone replacement therapy
CPT/HCPCS: 80053; 83605; 85025; 86140; 87040; 87070; 87077; 87186; 87205; 96365; 96367; 96375; J0692; J3373; J3490; J7050